=== PATIENT | male | born 1940 | race Caucasian/White ===

== ENCOUNTER 2019-09-22 02:22 | Inpatient (IN) | payer MEDICARE ==
[~2019-09-22] VITALS: Ht 182.8 cm; Wt 83.8 kg
[2019-09-22] VITALS (18 sets, daily range): BP systolic 120–152; BP diastolic 58–81
[~2019-09-22 02:22] MED LIST: AMIO200T4 PO; APIX5TAB PO; METO-351 PO; MTP25TSR PO
[2019-09-22] MEDS ORDERED: RT-ALBUTEROL/IPRATROPIUM 3 ML (DUONEB) VIAL INH ONE (02:45)
--- NOTE | 2019-09-22 02:49 | ED Dyspnea ---
General Chief Complaint: Respiratory Problems Stated Complaint: TROUBLE BREATHING Source of Information: Patient History of Present Illness Date Seen by Provider: Sep 22, 2019 Time Seen by Provider: 02:24 Initial Comments 79 yo M presents with complaints of cough and shortness of breath worsening in the last few days. Tonight he felt his breathing got much worse and he came to the ED. He is coughing up phlegm but swallowing it so he could not tell me if there is any color to it. He states he was supposed to be on a blood thinner but could not afford it so he stopped taking the medicine. He denies any pain in his chest but feels short of breath and has tightness in chest. He is short of breath but able to speak and hold a conversation. He did not feel like he was having a fever or chill. He denies any history of breathing problems such as COPD or asthma. He is a smoker and continues to use tobacco. Allergies and Home Medications Allergies Coded Allergies: No Known Drug Allergies (Unverified , 06/30/19) Home Medications Amiodarone HCl 200 Mg Tablet, 200 MG PO UD Take 2 tablets twice a day for 2 weeks then Take one tablet twice a day Prescribed by: LUANA LEO on 07/04/19 0744 Apixaban 5 Mg Tablet, 5 MG PO BID Prescribed by: LUANA LEO on 07/04/19 0744 Metoprolol Succinate 25 Mg Tab.er.24h, 25 MG PO DAILY Prescribed by: LEWIS RAE on 07/03/19 1304 Metoprolol Succinate 25 Mg Tab.er.24h, 25 MG PO DAILY Prescribed by: QUINTIN SHANNON on 07/03/19 1558 Patient Home Medication List Home Medication List Reviewed: Yes Review of Systems Review of Systems Constitutional: No chills, No fever EENTM: no symptoms reported Respiratory: cough, dyspnea on exertion, phlegm, short of breath; No stridor; wheezing Cardiovascular: No chest pain; palpitations Gastrointestinal: no symptoms reported Genitourinary: no symptoms reported Musculoskeletal: no symptoms reported Skin: no symptoms reported Psychiatric/Neurological: No Symptoms Reported Past Myqhkte-Zrfrut-Pxpqng Hx Past Med/Social Hx: Reviewed Nursing Past Med/Soc Hx Patient Social History Smoking Status: Current Everyday Smoker Type Used: Cigars 2nd Hand Smoke Exposure: Yes Recent Foreign Travel: No Contact w/Someone Who Travel: No Recent Hopitalizations: No Seasonal Allergies Seasonal Allergies: No Past Medical History Surgeries: No Respiratory: No Cardiac: Yes Atrial Fibrillation, Hypertension Neurological: No Genitourinary: No Gastrointestinal: No Musculoskeletal: No Endocrine: No HEENT: No Cancer: No Psychosocial: No Integumentary: No Family Medical History No Pertinent Family Hx Physical Exam Vital Signs Vital Signs - First Documented 09/22/19 02:27 Temp 38.4 Pulse 111 Resp 34 B/P (MAP) 149/100 (116) Pulse Ox 81 O2 Delivery Nasal Cannula O2 Flow Rate 10.00 FiO2 84 Capillary Refill : Height, Weight, BMI Height: '" Weight: lbs. oz. 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 Norm as Tested Skin: Normal Color, Warm/Dry Focused Exam Lactate Level 09/22/19 02:31: Lactic Acid Level 2.38*H Lactic Acid Level Laboratory Tests Test 09/22/19 02:31 Lactic Acid Level 2.38 MMOL/L (0.50-2.00) *H Progress/Results/Core Measures Results/Orders Lab Results Laboratory Tests Test 09/22/19 02:31 09/22/19 02:36 Range/Units White Blood Count 14.5 H 4.3-11.0 10^3/uL Red Blood Count 4.65 4.35-5.85 10^6/uL Hemoglobin 13.8 13.3-17.7 G/DL Hematocrit 43 40-54 % Mean Corpuscular Volume 93 80-99 FL Mean Corpuscular Hemoglobin 30 25-34 PG Mean Corpuscular Hemoglobin Concent 32 32-36 G/DL Red Cell Distribution Width 14.8 H 10.0-14.5 % Platelet Count 190 130-400 10^3/uL Mean Platelet Volume 11.0 H 7.4-10.4 FL Neutrophils (%) (Auto) 82 H 42-75 % Lymphocytes (%) (Auto) 10 L 12-44 % Monocytes (%) (Auto) 4 0-12 % Eosinophils (%) (Auto) 3 0-10 % Basophils (%) (Auto) 0 0-10 % Neutrophils # (Auto) 12.0 H 1.8-7.8 X 10^3 Lymphocytes # (Auto) 1.4 1.0-4.0 X 10^3 Monocytes # (Auto) 0.6 0.0-1.0 X 10^3 Eosinophils # (Auto) 0.4 H 0.0-0.3 10^3/uL Basophils # (Auto) 0.1 0.0-0.1 10^3/uL Neutrophils % (Manual) 79 % Lymphocytes % (Manual) 13 % Monocytes % (Manual) 7 % Eosinophils % (Manual) 1 % Microcytosis SLIGHT Prothrombin Time 13.8 12.2-14.7 SEC INR Comment 1.0 0.8-1.4 Activated Partial Thromboplast Time 27 24-35 SEC Sodium Level 140 135-145 MMOL/L Potassium Level 3.8 3.6-5.0 MMOL/L Chloride Level 101 98-107 MMOL/L Carbon Dioxide Level 22 21-32 MMOL/L Anion Gap 17 H 5-14 MMOL/L Blood Urea Nitrogen 21 H 7-18 MG/DL Creatinine 1.10 0.60-1.30 MG/DL Estimat Glomerular Filtration Rate > 60 BUN/Creatinine Ratio 19 Glucose Level 137 H 70-105 MG/DL Lactic Acid Level 2.38 *H 0.50-2.00 MMOL/L Calcium Level 9.0 8.5-10.1 MG/DL Corrected Calcium 8.9 8.5-10.1 MG/DL Magnesium Level 1.8 1.6-2.4 MG/DL Total Bilirubin 0.4 0.1-1.0 MG/DL Aspartate Amino Transf (AST/SGOT) 23 5-34 U/L Alanine Aminotransferase (ALT/SGPT) 24 0-55 U/L Alkaline Phosphatase 88 40-136 U/L Troponin I < 0.30 <0.30 NG/ML Pro-B-Type Natriuretic Peptide 1347.0 H <75.0 PG/ML Total Protein 7.7 6.4-8.2 GM/DL Albumin 4.1 3.2-4.5 GM/DL Blood Gas Puncture Site RIGHT RADIAL Blood Gas Patient Temperature 38.4 Arterial Blood pH 7.48 H 7.37-7.43 Arterial Blood Partial Pressure CO2 31 L 35-45 MMHG Arterial Blood Partial Pressure O2 41 L 79-93 MMHG Arterial Blood HCO3 23 23-27 MMOL/L Arterial Blood Total CO2 24.1 21.0-31.0 MMOL/L Arterial Blood Oxygen Saturation 81 L 94-100 % Arterial Blood Base Excess 0.3 -2.5-2.5 MMOL/L Ramy Test POSITIVE Blood Gas Ventilator Setting NO Blood Gas Inspired Oxygen 100 Micro Results Microbiology 09/22/19 Influenza Types A,B Antigen (BIGG) - Final, Complete My Orders Orders - JESSICA PRICE MD Cbc With Automated Diff (09/22/19 02:35) Comprehensive Metabolic Panel (09/22/19 02:35) Blood Culture (09/22/19 02:35) Chest 1 View Ap/Pa Only (09/22/19 02:35) Albuterol/Ipra Inhalation Soln (Duoneb I (09/22/19 02:45) Magnesium (09/22/19 02:35) Ekg Tracing (09/22/19 02:35) O2 (09/22/19 02:35) Ed Iv/Invasive Line Start (09/22/19 02:35) Sputum Culture (09/22/19 02:35) Monitor-Rhythm Ecg Trace Only (09/22/19 02:35) Lactic Acid Analyzer (09/22/19 02:35) Svn Small Volume Nebulizer (09/22/19 02:35) Protime With Inr (09/22/19 02:37) Partial Thromboplastin Time (09/22/19 02:37) Probnp Fs (09/22/19 02:37) Troponin I Fs (09/22/19 02:37) Arterial Blood Gas (09/22/19 02:38) Manual Differential (09/22/19 02:31) Ns Iv 1000 Ml (Sodium Chloride 0.9%) (09/22/19 02:56) Methylprednisolone Sod Succ (Solu-Medrol (09/22/19 02:56) Acetaminophen Tablet (Tylenol Tablet) (09/22/19 02:57) Piperacillin Sodium/Tazobactam (Zosyn Vi (09/22/19 02:59) Bipap (Bilevel) Set Up (09/22/19 03:19) Influenza A And B Antigens (09/22/19 03:32) Medications Given in ED Current Medications Medications Dose Ordered Sig/Corby Route Start Time Stop Time Status Last Admin Dose Admin Albuterol/ Ipratropium 3 ml ONCE ONCE INH 09/22/19 02:45 09/22/19 02:46 DC 09/22/19 02:44 3 ML Vital Signs/I&O 09/22/19 09/22/19 09/22/19 02:27 02:27 02:51 Temp 38.4 Pulse 111 Resp 34 B/P (MAP) 149/100 (116) Pulse Ox 81 84 84 O2 Delivery Nasal Cannula Non Rebreather Non Rebreather O2 Flow Rate 10.00 10.00 FiO2 84 Progress Progress Note #1: Progress Note placed on supplemental oxygen and obtain labs with cultures and lactic acid as well as sputum culture. try a breathing treatment with duoneb to see if that helps his breathing and oxygen saturation as well. Try a steroid dose since he is a smoker he likely has some component of COPD as well. Obtain ABG since he is so hypoxic on arrival. Treat fever and give IVF for his fever and presumed pneumonia. After obtaining cultures will start antibiotics presumptively. Progress Note #2: Time: 03:23 Progress Note Labs show elevated WBC count with left shift. Chemistry shows normal Cr. His Troponin is negative. His ECG shows sinus tachycardia. CXR shows RML and RLL infiltrate. He does report he is breathing easier and his O2 sat came up to 90% on facemask at 100% but ABG shows he is low pCO2 and pO2 with slightly alkalotic pH. 7.48/31/41 on 100% though mask. Will start Zosyn for pneumonia and start him on BiPap for his breathing to see if that helps his oxygen. Waiting on Lactic acid and proBNP still before calling about admit. They do have ICU and floor beds in [place]. Progress Note #3: Time: 03:41 Progress Note proBNP is elevated and his lactic acid is slightly elevated at 2.38. He is responding well to the BiPap and much more comfortable and his vital signs are all improving with treatment. D/w Dr. Mccloud from hospitalist service for admit to ICU since pt has no primary care provider. Will not give him 30 ml/kg bolus of fluids since he is not showing signs of severe sepsis but will continue fluids at 150 ml/hr at least initially. Initial ECG Impression Date: Sep 22, 2019 Initial ECG Impression Time: 02:37 Initial ECG Rate: 107 Initial ECG Rhythm: S.Tach Initial ECG Comparisson: Changed Comment Sinus tachycardia with a heart rate 107 bpm. ME interval of 199 ms. He has left ventricular hypertrophy. He has a lot of artifact on the tracing. He has no acu te ST elevation. His QT interval is 351 ms with a QTc interval 469 ms. His previous tracing had shown atrial fibrillation which he is not currently in that rhythm. Diagnostic Imaging Diagonstic Imaging: Xray Plain Films/CT/US/NM/MRI: chest Comments right middle and lower lobe infiltrates, LLL infiltrate. on my review of his 1 view CXR Departure Communication (Admissions) Time/Spoke to Admitting Phy: 03:41 d/w Dr. Mccloud for the hospitalist service and will admit for pneumonia and hypoxia. Pt has improved in respirations as well as oxygen saturation, and pulse with placing him on bipap. Started on Zosyn here. Giving 1 L NS bolus for his fluids and elevated Lactic acid of 2.38. with his elevated proBNP will defer giving him 30 ml/kg bolus since he is not exhibiting signs of severe sepsis. Impression Primary Impression: Right middle lobe pneumonia Qualified Codes: J18.1 - Lobar pneumonia, unspecified organism Additional Impressions: Right lower lobe pneumonia Qualified Codes: J18.1 - Lobar pneumonia, unspecified organism Hypoxia Disposition: ADMITTED INPATIENT Condition: Stable Admissions Decision to Admit Reason: Admit from ER (General) Decision to Admit/Date: Sep 22, 2019 Time/Decision to Admit Time: 03:41 Departure-Patient Inst. Referrals: NO,LOCAL PHYSICIAN (PCP/Family) Primary Care Physician JESSICA PRICE MD Sep 22, 2019 02:49
[2019-09-22 02:51] LABS: BASOPHILS # (AUTO) 0.1 10^3/uL (0.0-0.1); BASOPHILS % (AUTO) 0 % (0-10); EOSINOPHILS # (AUTO) 0.4 10^3/uL (0.0-0.3); EOSINOPHILS % (AUTO) 3 % (0-10); HEMATOCRIT 43 % (40-54); HEMOGLOBIN 13.8 G/DL (13.3-17.7); LYMPHOCYTES # (AUTO) 1.4 X 10^3 (1.0-4.0); LYMPHOCYTES % (AUTO) 10 % (12-44); MEAN CORPUSCULAR HEMOGLOBIN 30 PG (25-34); MEAN CORPUSCULAR HGB CONC 32 G/DL (32-36); MEAN CORPUSCULAR VOLUME 93 FL (80-99); MONOCYTES # (AUTO) 0.6 X 10^3 (0.0-1.0); MONOCYTES % (AUTO) 4 % (0-12); NEUTROPHILS % (AUTO) 82 % (42-75); PLATELET COUNT 190 10^3/uL (130-400); RED CELL DISTRIBUTION WIDTH 14.8 % (10.0-14.5); WHITE BLOOD COUNT 14.5 10^3/uL (4.3-11.0)
[2019-09-22] MEDS ORDERED: NS IV 1000 ML 1,000 ML IV STA (02:56)
[2019-09-22] MEDS ORDERED: methylPREDNISolone 125 MG (Solu-MEDROL) VIAL IVP STA (02:56)
[2019-09-22] MEDS ORDERED: ACETAMINOPHEN 500 MG TAB (TYLENOL) PO STA (02:57)
[2019-09-22] MEDS ORDERED: PIPERACILLIN SODIUM/TAZOBACTAM 4.5 GM in NS (IVPB) 100 ML IV STA (02:59)
[2019-09-22 03:04] LABS: ABG BASE EXCESS 0.3 MMOL/L (-2.5-2.5); ABG OXYGEN SATURATION 81 % (94-100); ABG PCO2 31 MMHG (35-45); ABG PH 7.48 (7.37-7.43); ABG PO2 41 MMHG (79-93); ABG TCO2 24.1 MMOL/L (21.0-31.0); ALLENS TEST POSITIVE; PATIENT TEMP 38.4; VENTILATOR NO
[2019-09-22 03:05] LABS: PROTHROMBIN TIME PATIENT 13.8 SEC (12.2-14.7)
[2019-09-22 03:06] LABS: INSPIRED O2 100
[2019-09-22 03:12] LABS: ALANINE AMINOTRANSFERASE 24 U/L (0-55); ALBUMIN 4.1 GM/DL (3.2-4.5); ALKALINE PHOSPHATASE 88 U/L (40-136); BILIRUBIN,TOTAL 0.4 MG/DL (0.1-1.0); BUN/CREATININE RATIO 19; CARBON DIOXIDE 22 MMOL/L (21-32); CHLORIDE 101 MMOL/L (98-107); GFR ESTIMATED > 60; GLUCOSE 137 MG/DL (70-105); MAGNESIUM 1.8 MG/DL (1.6-2.4); POTASSIUM 3.8 MMOL/L (3.6-5.0); SODIUM 140 MMOL/L (135-145); TOTAL PROTEIN 7.7 GM/DL (6.4-8.2)
[2019-09-22 03:30] LABS: EOSINOPHILS % (MANUAL) 1 %; LYMPHOCYTES % (MANUAL) 13 %; MICROCYTOSIS SLIGHT; MONOCYTES % (MANUAL) 7 %; NEUTROPHILS % (MANUAL) 79 %
--- NOTE | 2019-09-22 03:41 | NUR ---
PT. WAS PLACED ON BIPAP AT 100% 02 AND HIS SATS WERE 98%.
[2019-09-22 05:22] LABS: ABG BASE EXCESS -1.6 MMOL/L (-2.5-2.5); ABG OXYGEN SATURATION 70 % (94-100); ABG PCO2 34 MMHG (35-45); ABG PH 7.43 (7.37-7.43); ABG PO2 41 MMHG (79-93); ABG TCO2 23.1 MMOL/L (21.0-31.0)
[2019-09-22 05:23] LABS: ALLENS TEST YES-POS
[2019-09-22 05:24] LABS: INSPIRED O2 6L; PATIENT TEMP 37.3; VENTILATOR NO
[2019-09-22 05:37] LABS: BILIRUBIN,URINE NEGATIVE (NEGATIVE); CLARITY,URINE CLEAR; COLOR,URINE YELLOW; GLUCOSE, URINE (UA) NEGATIVE (NEGATIVE); KETONES,URINE TRACE (NEGATIVE); LEUKOCYTE ESTERASE ,URINE NEGATIVE (NEGATIVE); NITRITE,URINE NEGATIVE (NEGATIVE); PH,URINE 6.5 (5-9); PROTEIN,URINE NEGATIVE (NEGATIVE)
--- NOTE | 2019-09-22 05:51 | Pulmonary Consultation ---
History of Present Illness History of Present Illness Date Seen by Provider: Sep 22, 2019 Time Seen by Provider: 05:46 Date of Admission Allergies and Home Medications Allergies Coded Allergies: No Known Drug Allergies (Unverified , 06/30/19) Home Medications Amiodarone HCl 200 Mg Tablet, 200 MG PO UD Take 2 tablets twice a day for 2 weeks then Take one tablet twice a day Prescribed by: LUANA LEO on 07/04/19 0744 Apixaban 5 Mg Tablet, 5 MG PO BID Prescribed by: LUANA LEO on 07/04/19 0744 Metoprolol Succinate 25 Mg Tab.er.24h, 25 MG PO DAILY Prescribed by: LEWIS RAE on 07/03/19 1304 Metoprolol Succinate 25 Mg Tab.er.24h, 25 MG PO DAILY Prescribed by: QUINTIN SHANNON on 07/03/19 1558 Past Aegbdva-Hkztnt-Wuwuts Hx Past Med/Social Hx: Reviewed Nursing Past Med/Soc Hx Patient Social History Smoking Status: Current Everyday Smoker Type Used: Cigars 2nd Hand Smoke Exposure: Yes Recent Foreign Travel: No Contact w/Someone Who Travel: No Recent Infectious Disease Expo: No Recent Hopitalizations: No Physical Abuse: No Sexual Abuse: No Mistreated: No Fear: No Seasonal Allergies Seasonal Allergies: No Past Medical History Surgeries: No Respiratory: No Cardiac: Yes Atrial Fibrillation, Hypertension Neurological: No Genitourinary: No Gastrointestinal: No Musculoskeletal: No Endocrine: No HEENT: No Cancer: No Psychosocial: No Integumentary: No Family Medical History No Pertinent Family Hx Review of Systems Time Seen by Provider: 05:58 Constitutional: Fever, Chills, Sweats, Weakness, Malaise, Other Eyes: No: Pain, Vision change, Conjunctivae inflammation, Eyelid inflammation, Other, Redness ENT: Nose congestion; No: Ear pain, Ear discharge, Nose pain, Nose discharge, Mouth pain, Mouth swelling, Throat pain, Throat swelling, Other Respiratory: Cough, Shortness of breath, SOB with excertion, Sputum; No: Hemoptysis Cardiovascular: No: Chest Pain, Palpitations, Orthopnea, Paroxysmal Noc. Dyspnea, Edema, Lt Headedness, Other Sepsis Event Evaluation Height, Weight, BMI Height: '" Weight: lbs. oz. kg; 24.00 BMI Method: Exam Exam Vital Signs Date Time Temp Pulse Resp B/P (MAP) Pulse Ox O2 Delivery O2 Flow Rate FiO2 09/22/19 05:36 76 09/22/19 04:06 38.0 78 24 144/55 99 NIV Bilevel 09/22/19 02:51 84 Non Rebreather 10.00 09/22/19 02:27 84 Non Rebreather 10.00 84 09/22/19 02:27 38.4 111 34 149/100 (116) 81 Nasal Cannula I & O 09/22/19 07:00 Intake Total 1100 ml Balance 1100 ml Height & Weight Height: '" Weight: lbs. oz. kg; 24.00 BMI Method: General Appearance: Moderate Distress (working hard to breath), Thin HEENT: PERRL/EOMI, Other (chronically missing teeth and has blood on his lips) Neck: Full Range of Motion, Normal Inspection, Non Tender, Supple Respiratory: Chest Non Tender, Accessory Muscle Use, Decreased Breath Sounds, Rales, Respiratory Distress, Rhonci; No Stridor; Wheezing Cardiovascular: Normal Peripheral Pulses, Tachycardia Capillary Refill: Greater Than 3 Seconds Extremity: Pedal Edema Neurologic/Psychiatric: Alert, Oriented x3, strip cleaner II-XII Norm as Tested Skin: Normal Color, Warm/Dry Results Lab Laboratory Tests 09/22/19 02:31 Assessment/Plan Assessment/Plan Severe sepsis secondary to PNA -Zosyn and add vancomycin for now -Javed culture -MRSA swab -Influenza is negative Paroxysmal atrial fibrillation Probable CHF - Pt is edematous and BNP is elevated -Cautious IVF -PT is currently hypertensive -Will proceed with LR at 150 for now Current tobacco use with probable COPD -Duonebs Q 4 Hemoptysis - Per ER nurse report however pt denies -PT does have dried blood around lips -Hold anticoagulation for now -Check occult stool SANTIAGO CLEMENT DO Sep 22, 2019 05:51
[2019-09-22] MEDS ORDERED: LACTATED RINGERS 1,000 ML IV ONE (05:53)
[2019-09-22 05:54] LABS: BASOPHILS % (AUTO) 0 % (0-10); EOSINOPHILS % (AUTO) 0 % (0-10); HEMATOCRIT 39 % (40-54); HEMOGLOBIN 12.5 G/DL (13.3-17.7); LYMPHOCYTES # (AUTO) 0.2 X 10^3 (1.0-4.0); LYMPHOCYTES % (AUTO) 2 % (12-44); MEAN CORPUSCULAR HEMOGLOBIN 30 PG (25-34); MEAN CORPUSCULAR HGB CONC 32 G/DL (32-36); MEAN CORPUSCULAR VOLUME 92 FL (80-99); MEAN PLATELET VOLUME 10.8 FL (7.4-10.4); MONOCYTES # (AUTO) 0.5 X 10^3 (0.0-1.0); MONOCYTES % (AUTO) 4 % (0-12); NEUTROPHILS % (AUTO) 94 % (42-75); PLATELET COUNT 166 10^3/uL (130-400); RED CELL DISTRIBUTION WIDTH 14.9 % (10.0-14.5); WHITE BLOOD COUNT 12.8 10^3/uL (4.3-11.0)
[2019-09-22 05:54] LABS: BACTERIA,URINE NEGATIVE /HPF
[2019-09-22] MEDS ORDERED: VANCOMYCIN 1000 MG/VIAL ONE (05:56)
[2019-09-22] MEDS ORDERED: NS (IVPB) 250 ML ONE (05:56)
[2019-09-22] MEDS ORDERED: NORMAL SALINE IV SCH (06:00)
[2019-09-22] MEDS ORDERED: PHARMACY TO DOSE IV SCH (06:00)
[2019-09-22] MEDS ORDERED: LACTATED RINGERS 1,000 ML IV SCH (06:00)
[2019-09-22] MEDS ORDERED: PIPERACILLIN/TAZOBACTAM (BULK) 4.5 GM in NS (IVPB) 100 ML IV SCH ×2 (06:00→09:00)
[2019-09-22] MEDS ORDERED: RT-ALBUTEROL/IPRATROPIUM 3 ML (DUONEB) VIAL INH SCH (06:00)
[2019-09-22] MEDS ORDERED: VANCOMYCIN IV SCH (06:00)
[2019-09-22 06:17] LABS: BUN/CREATININE RATIO 19; CALCIUM 8.4 MG/DL (8.5-10.1); CARBON DIOXIDE 19 MMOL/L (21-32); CHLORIDE 109 MMOL/L (98-107); CREATININE SERUM 1.05 MG/DL (0.60-1.30); GFR ESTIMATED > 60; GLUCOSE 109 MG/DL (70-105); MAGNESIUM 1.6 MG/DL (1.6-2.4); PHOSPHORUS 2.2 MG/DL (2.3-4.7); POTASSIUM 3.7 MMOL/L (3.6-5.0); SODIUM 140 MMOL/L (135-145)
[2019-09-22] MEDS ORDERED: VANCOMYCIN INJECTION 1,000 MG in NS (IVPB) 250 ML IV SCH (06:30)
[2019-09-22] MEDS: KCL 20 MEQ TAB (K-DUR) PO SCH ×2 (06:52→21:01)
--- NOTE | 2019-09-22 06:52 | NUR ---
Vancomycin Dosing - Vancomycin 1500mg over 2 hours x 1, then 1250mg every 12 hours.
[2019-09-22] MEDS: MAGNESIUM 1 GM/100 ML IVPB 100 ML IV SCH ×2 (06:53→08:19)
--- NOTE | 2019-09-22 07:23 | Diagnostic Imaging Report ---
INDICATION: Shortness of breath. Comparison is made with prior examination from 07/02/2019. FINDINGS: There is cardiomegaly. There is moderate congestive failure. There is no pleural effusion or pneumothorax. Mediastinum is unremarkable. IMPRESSION: Cardiomegaly and moderately severe congestive failure. Dictated by: Dictated on workstation # [id number]
[2019-09-22] MEDS: RT-ALBUTEROL/IPRATROPIUM 3 ML (DUONEB) VIAL INH SCH ×5 (07:29→23:01)
[2019-09-22] MEDS ORDERED: FLU QUADRIvalent (5+ YOA) 2019-2020 (AFLURIA) 0.5 ML IM ONE (07:30)
[2019-09-22] MEDS ORDERED: VANCOMYCIN 1500 MG/NS 500 ML IVPB IV NR ×2 (08:00)
[2019-09-22] MEDS: meTOprolol TARTRATE 25 MG (LOPRESSOR) TABLET PO SCH ×2 (08:20→21:01)
[2019-09-22] MEDS: PANTOPRAZOLE 40 MG (PROTONIX) VIAL IV SCH (08:20)
[2019-09-22] MEDS ORDERED: VANCOMYCIN 500 MG/NS 100 ML IV NR ×2 (08:30)
[2019-09-22] MEDS ORDERED: AZITHROMYCIN 500 MG/NS 250 ML IVPB IV SCH ×2 (09:00)
[2019-09-22] MEDS ORDERED: FUROSEMIDE 40 MG/4 ML INJ (LASIX) IVP ONE (09:30)
[2019-09-22] MEDS: NICOTINE 21 MG (NICODERM) PATCH TD SCH (09:32)
[2019-09-22] MEDS: PIPERACILLIN/TAZO 4.5 GM/NS 100 ML IV SCH ×4 (09:42→17:13)
--- NOTE | 2019-09-22 10:34 | NUR ---
DR MILLER NOTIFIED OF CONSULT.
[2019-09-22] MEDS ORDERED: ASPIRIN 81 MG CHEW (CHILDREN'S ASA) PO ONE (12:00)
--- NOTE | 2019-09-22 12:05 | History & Physical-Hospitalist ---
History of Present Illness HPI/Chief Complaint Zacarias Barakat is a 79-year-old male with past medical history of hypertension, paroxysmal atrial fibrillation, heart failure with preserved ejection fraction, who presented with shortness of breath. He reports that the shortness of breath is been going on for quite a while. He reports that he had some chills overnight. He reports a cough with sputum production. He reports orthopnea. He reports leg swelling. He denies any chest pain. He denies any abdominal pain, nausea, vomiting, diarrhea, or dysuria. He reports that he has not been taking his Eliquis for anticoagulation because he was unable to afford it. He never establish with a primary care physician. He has not followed up with his preparer following his recent hospitalization in June. Source: patient Exam Limitations: no limitations Date Seen 09/22/19 Time Seen by a Provider: 09:20 Attending Physician Surekha Dubon MD PCP No,Local Physician Referring Physician Date of Admission Sep 22, 2019 at 03:53 Home Medications & Allergies Home Medications Reviewed patient Home Medication Reconciliation performed by pharmacy medication reconciliations lead based paint technician and/or nursing. Patients Allergies have been reviewed. Allergies Allergies Coded Allergies No Known Drug Allergies (Vqowivgrrs70/17/19) Past Giqaybv-Ownozf-Hrbwhu Hx Past Med/Social Hx: Reviewed Nursing Past Med/Soc Hx Patient Social History Smoking Status: Current Everyday Smoker Type Used: Cigars 2nd Hand Smoke Exposure: Yes Recent Foreign Travel: No Contact w/other who traveled: No Recent Hopitalizations: No Recent Infectious Disease Expo: No Seasonal Allergies Seasonal Allergies: No Past Medical History Cardiac: Atrial Fibrillation, Hypertension Family History No Pertinent Family Hx Review of Systems Constitutional: chills EENTM: no symptoms reported Respiratory: cough, orthopnea, phlegm, short of breath Cardiovascular: no symptoms reported Gastrointestinal: no symptoms reported Genitourinary: no symptoms reported Musculoskeletal: no symptoms reported Skin: no symptoms reported Psychiatric/Neurological: No Symptoms Reported Physical Exam Physical Exam Vital Signs Vital Signs - First Documented 09/22/19 02:27 Temp 38.4 Pulse 111 Resp 34 B/P (MAP) 149/100 (116) Pulse Ox 81 O2 Delivery Nasal Cannula O2 Flow Rate 10.00 FiO2 84 Capillary Refill : Less Than 3 Seconds Height, Weight, BMI Height: '" Weight: lbs. oz. kg; 24.00 BMI Method: General Appearance: No Apparent Distress, WD/WN HEENT: PERRL/EOMI, Pharynx Normal Neck: Normal Inspection, Non Tender, Supple Respiratory: No Respiratory Distress, Crackles, Other (wearing nasal cannula 6 L) Cardiovascular: Regular Rate, Rhythm, No Murmur Gastrointestinal: Normal Bowel Sounds, Non Tender, Soft Extremity: Normal Inspection, Non Tender, Pedal Edema (4+) Neurologic/Psychiatric: Alert, Oriented x3, No Motor/Sensory Deficits, Normal Mood/Affect Skin: Normal Color, Warm/Dry Lymphatic: No Adenopathy Results Results/Procedures Labs Laboratory Tests 09/22/19 02:31 09/22/19 05:46 Patient resulted labs reviewed. Imaging: Reviewed Imaging Report Assessment/Plan Admission Diagnosis acute on chronic heart failure with preserved ejection fraction Admission Status: Inpatient Order (span 2 midnights) Reason for Inpatient Admission: heart failure requiring IV diuresis Assessment and Plan Acute on chronic heart failure with preserved ejection fraction Acute respiratory failure with hypoxia NSTEMI requiring supplemental oxygen 6 L, no home use Chest x-ray consistent with congestive heart failure, no consolidation BNP elevated at 1347 on arrival, down to 784 this morning Given 1 dose of Lasix on arrival, continue Initial troponin undetectable, repeat 0.7 Cardiology consulted, appreciate assistance Aspirin 324 mg ordered, continue 81 mg daily Begin therapeutic Lovenox twice daily echocardiogram ordered consider CT chest to rule out pulmonary embolism SIRS Possible pneumonia lactic acidosis WBC mildly elevated, febrile to 38.4 overnight, procalcitonin normal started on vancomycin and Zosyn for possible pneumonia lactic acidosis resolved Hypophosphatemia Hypomagnesemia Continue to monitor and replace as needed Diagnosis/Problems Diagnosis/Problems (1) Acute on chronic heart failure with preserved ejection fraction (HFpEF) Status: Acute (2) Acute respiratory failure with hypoxia (3) NSTEMI (non-ST elevation myocardial infarction) Status: Acute (4) Lactic acidosis Status: Resolved Resolution Date/Time: 09/22/19 @ 12:08 (5) Hypophosphatemia Status: Acute (6) Hypomagnesemia Status: Acute (7) SIRS (systemic inflammatory response syndrome) Status: Acute Clinical Quality Measures DVT/VTE Risk/Contraindication: Risk Factor Score Per Nursin RFS Level Per Nursing on Admit: 4+=Very High SUREKHA DUBON MD Sep 22, 2019 12:05
[2019-09-22] MEDS: ENOXAPARIN 100 MG/1 ML (LOVENOX) SYR SC SCH (12:16)
--- NOTE | 2019-09-22 12:29 | Consultation-Cardiology ---
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 Has also been noticing increasing leg swelling. Denies palp since hospitalization of Jun 2019 (when he was diagnosed with PAF). Denies syncope. Denies cp. Review of Systems-Cardiology Review of Systems Constitutional: malaise, tiredness; No weight loss, No weight gain Eyes: No vision change Ears/Nose/Throat: No ear discharge, No nasal drainage, No recent hearing loss Respiratory: As described under HPI Cardiovascular: As described under HPI Gastrointestinal: No constipation, No diarrhea, No nausea, No vomiting Genitourinary: No hematuria, No urine frequency changes Musculoskeletal: No back pain, No joint pain Skin: No rash, No ulcerations Psychiatric/Neurological: No seizure, No focal weakness, No syncope Hematologic: No bleeding abnormalities HBY-Balrfn-Sxyriz Hx Patient Social History Smoking Status: Current Everyday Smoker Type Used: Cigars 2nd Hand Smoke Exposure: Yes Recent Foreign Travel: No Recent Infectious Disease Expo: No Hospitalization with Isolation: Denies Past Medical History PMH As described under Assessment. Family Medical History Family Medical History: He does not report fam h/o early CAD or SCD Allergies and Home Medications Allergies Coded Allergies: No Known Drug Allergies (Unverified , 06/30/19) Home Medications Amiodarone HCl 200 Mg Tablet, 200 MG PO UD Take 2 tablets twice a day for 2 weeks then Take one tablet twice a day Prescribed by: LUANA GARCIA on 07/04/19 0744 Apixaban 5 Mg Tablet, 5 MG PO BID Prescribed by: LUANA GARCIA on 07/04/19 0744 Metoprolol Succinate 25 Mg Tab.er.24h, 25 MG PO DAILY Prescribed by: LEWIS RAE on 07/03/19 1304 Metoprolol Succinate 25 Mg Tab.er.24h, 25 MG PO DAILY Prescribed by: QUINTIN SHANNON on 07/03/19 4598 Patient Home Medication List Home Medication List Reviewed: Yes Physical Exam-Cardiology Physical Exam Vital Signs/I&O 09/22/19 09/22/19 09/22/19 09/22/19 02:27 02:27 02:51 04:06 Temp 38.4 38.0 Pulse 111 78 Resp 34 24 B/P (MAP) 149/100 (116) 144/55 Pulse Ox 81 84 84 99 O2 Delivery Nasal Cannula Non Rebreather Non Rebreather NIV Bilevel O2 Flow Rate 10.00 10.00 FiO2 84 09/22/19 09/22/19 09/22/19 09/22/19 05:06 05:30 05:36 05:45 Temp 37.3 Pulse 80 94 76 75 Resp 32 20 29 B/P (MAP) 150/66 (94) 138/62 (87) 134/64 (87) Pulse Ox 91 92 92 O2 Delivery Nasal Cannula Nasal Cannula Nasal Cannula O2 Flow Rate 6.00 6.00 6.00 09/22/19 09/22/19 09/22/19 09/22/19 05:47 05:56 06:00 06:15 Temp 38.0 Pulse 76 9 70 Resp 24 16 B/P (MAP) 134/64 (87) 132/67 (88) Pulse Ox 91 91 91 93 O2 Delivery Nasal Cannula Nasal Cannula Nasal Cannula O2 Flow Rate 6.00 6.00 6.00 FiO2 44 09/22/19 09/22/19 09/22/19 09/22/19 06:30 07:00 07:00 07:18 Pulse 79 66 71 Resp 22 19 B/P (MAP) 145/73 (97) 138/81 (100) Pulse Ox 94 94 91 O2 Delivery Nasal Cannula Nasal Cannula Nasal Cannula O2 Flow Rate 6.00 4.00 6.00 09/22/19 09/22/19 09/22/19 09/22/19 07:31 08:00 08:00 08:00 Temp 36.6 Pulse 68 Resp 20 B/P (MAP) 128/61 (83) Pulse Ox 93 92 O2 Delivery Nasal Cannula Nasal Cannula Nasal Cannula O2 Flow Rate 6.00 6.00 4.00 09/22/19 09/22/19 09/22/19 09/22/19 09:00 10:00 10:48 11:00 Pulse 62 61 65 Resp 16 11 23 B/P (MAP) 120/58 (78) 120/78 (92) 136/70 (92) Pulse Ox 93 94 96 94 O2 Delivery Nasal Cannula Nasal Cannula Nasal Cannula Nasal Cannula O2 Flow Rate 4.00 4.00 6.00 4.00 09/22/19 12:00 Pulse 75 Resp 19 B/P (MAP) 152/73 (99) Pulse Ox 94 O2 Delivery Nasal Cannula O2 Flow Rate 4.00 Capillary Refill : Less Than 3 Seconds Constitutional: AAO x 3, well-developed, well-nourished HEENT: other (dental caries), EOMI, hearing is well preserved; No xanthelasmas are seen Respiratory: No accessory muscle use; other (fair to good bilat air entry; a few, finte basal crackles bilaterally) Cardiovascular: regular rate-rhythm, S1 and S2, systolic murmur (soft ANNETTA at card base) Gastrointestinal: No tender; soft; No guarding, No rebound; audible bowel sounds Extremities: No clubbing, No cyanosis; significant edema (pitting edema of both legs) Neurologic/Psychiatric: oriented x 3, other (moves all limbs equally) Skin: No rash on exposed areas, No ulcerations on exposed areas Data Review Labs Laboratory Tests 09/22/19 02:31: White Blood Count 14.5H, Red Blood Count 4.65, Hemoglobin 13.8, Hematocrit 43, Mean Corpuscular Volume 93, Mean Corpuscular Hemoglobin 30, Mean Corpuscular Hemoglobin Concent 32, Red Cell Distribution Width 14.8H, Platelet Count 190, Mean Platelet Volume 11.0H, Neutrophils (%) (Auto) 82H, Lymphocytes (%) (Auto) 10L, Monocytes (%) (Auto) 4, Eosinophils (%) (Auto) 3, Basophils (%) (Auto) 0, Neutrophils # (Auto) 12.0H, Lymphocytes # (Auto) 1.4, Monocytes # (Auto) 0.6, Eosinophils # (Auto) 0.4H, Basophils # (Auto) 0.1, Neutrophils % (Manual) 79, Lymphocytes % (Manual) 13, Monocytes % (Manual) 7, Eosinophils % (Manual) 1, Microcytosis SLIGHT, Prothrombin Time 13.8, INR Comment 1.0, Activated Partial Thromboplast Time 27, Sodium Level 140, Potassium Level 3.8, Chloride Level 101, Carbon Dioxide Level 22, Anion Gap 17H, Blood Urea Nitrogen 21H, Creatinine 1.10, Estimat Glomerular Filtration Rate > 60, BUN/Creatinine Ratio 19, Glucose Level 137H, Lactic Acid Level 2.38*H, Calcium Level 9.0, Corrected Calcium 8.9, Magnesium Level 1.8, Total Bilirubin 0.4, Aspartate Amino Transf (AST/SGOT) 23, Alanine Aminotransferase (ALT/SGPT) 24, Alkaline Phosphatase 88, Troponin I < 0.30, Pro-B-Type Natriuretic Peptide 1347.0H, Total Protein 7.7, Albumin 4.1 09/22/19 02:36: Blood Gas Puncture Site RIGHT RADIAL, Blood Gas Patient Temperature 38.4, Arterial Blood pH 7.48H, Arterial Blood Partial Pressure CO2 31L, Arterial Blood Partial Pressure O2 41L, Arterial Blood HCO3 23, Arterial Blood Total CO2 24.1, Arterial Blood Oxygen Saturation 81L, Arterial Blood Base Excess 0.3, Ramy Test POSITIVE, Blood Gas Ventilator Setting NO, Blood Gas Inspired Oxygen 100 09/22/19 05:10: Urine Color YELLOW, Urine Clarity CLEAR, Urine pH 6.5, Urine Specific [place] 1.015L, Urine Protein NEGATIVE, Urine Glucose (UA) NEGATIVE, Urine Ketones TRACEH, Urine Nitrite NEGATIVE, Urine Bilirubin NEGATIVE, Urine Urobilinogen 1.0, Urine Leukocyte Esterase NEGATIVE, Urine RBC (Auto) TRACE-L, Urine RBC 2-5H , Urine WBC NONE, Urine Squamous Epithelial Cells 2-5, Urine Crystals NONE, Urine Bacteria NEGATIVE, Urine Casts NONE, Urine Mucus SMALLH, Urine Culture Indicated NO 09/22/19 05:13: Blood Gas Puncture Site LEFT RADIAL, Blood Gas Patient Temperature 37.3, Arterial Blood pH 7.43, Arterial Blood Partial Pressure CO2 34L, Arterial Blood Partial Pressure O2 41L, Arterial Blood HCO3 22L, Arterial Blood Total CO2 23.1, Arterial Blood Oxygen Saturation 70L, Arterial Blood Base Excess -1.6, Ramy Test YES-POS, Blood Gas Ventilator Setting NO, Blood Gas Inspired Oxygen 6L 09/22/19 05:46: White Blood Count 12.8H, Red Blood Count 4.23L, Hemoglobin 12.5L, Hematocrit 39L , Mean Corpuscular Volume 92, Mean Corpuscular Hemoglobin 30, Mean Corpuscular Hemoglobin Concent 32, Red Cell Distribution Width 14.9H, Platelet Count 166, Mean Platelet Volume 10.8H, Neutrophils (%) (Auto) 94H, Lymphocytes (%) (Auto) 2L, Monocytes (%) (Auto) 4, Eosinophils (%) (Auto) 0, Basophils (%) (Auto) 0, Neutrophils # (Auto) 12.0H, Lymphocytes # (Auto) 0.2L, Monocytes # (Auto) 0.5, Eosinophils # (Auto) 0.0, Basophils # (Auto) 0.0, Sodium Level 140, Potassium Level 3.7, Chloride Level 109H, Carbon Dioxide Level 19L, Anion Gap 12, Blood Urea Nitrogen 20H, Creatinine 1.05, Estimat Glomerular Filtration Rate > 60, BUN/Creatinine Ratio 19, Glucose Level 109H, Lactic Acid Level 0.98, Calcium Level 8.4L, Phosphorus Level 2.2L, Magnesium Level 1.6, B-Type Natriuretic Peptide 784.5H, Procalcitonin 0.12H 09/22/19 09:24: Troponin I 0.769*H Microbiology 09/22/19 Influenza Types A,B Antigen (BIGG) - Final, Complete A/P-Cardiology Assessment/Admission Diagnosis Ac diastolic CHF. Echo of 09/22/19: LVEF 50-55%, grade 2 john dysfunction, mild , RVSP 28 mmHg Mild troponin elevation: probably type-2 OR due to decompensated CHF Possible pneumonia, being managed by the Hosp Svce H/o PAF, documented in Jun 2019 Hypertension Chronic smoker of cigarettes Discussion and Recomendations * Diuretics to treat decomp CHF * Continue amiodarone and apixaban that Dr Mariee has had him on * Add low dose ASA * D/c enoxaparin after starting apixaban back * Monitor labs * Would need coronary evaluation: stress test or cardiac cath, based on hosp course Clinical Quality Measures DVT/VTE Risk/Contraindication: Risk Factor Score Per Nursin RFS Level Per Nursing on Admit: 4+=Very High IRAJ MILLER MD FACP FAC CCDS Sep 22, 2019 12:29
[2019-09-22] MEDS ORDERED: AMIODARONE 200 MG (CORDARONE) TAB PO NR (12:45)
[2019-09-22] MEDS ORDERED: NS 100 ML (IVPB) BAG IV ONE (13:00)
[2019-09-22] MEDS ORDERED: HOLD METFORMIN - RECEIVED CONTRAST 20 ML VIAL IV SCH (13:00)
[2019-09-22] MEDS ORDERED: IOHEXOL 350 MG/ML 100 ML (OMNIPAQUE 350) VIAL IV ONE (13:00)
--- NOTE | 2019-09-22 13:27 | NUR ---
MENA WALLS TO ASSUME CARE OF PT. NO QUESTIONS/CONCERNS VOICED.
--- NOTE | 2019-09-22 15:37 | Diagnostic Imaging Report ---
PROCEDURE: CT angiography of the chest with contrast. TECHNIQUE: Multiple contiguous axial images were obtained through the chest after uneventful bolus administration of intravenous contrast. 3D reconstructed CTA MIP acquisitions were also performed. Auto Exposure Controls were utilized during the CT exam to meet ALARA standards for radiation dose reduction. INDICATION: Shortness of breath. COMPARISON: There are no prior CTA chest examinations available for comparison. FINDINGS: There is no defect within the pulmonary arteries to indicate a pulmonary metastases. The aorta is not well opacified and consequently difficult to assess. The aorta does not appear to be enlarged and there is no evidence for a dissection. The heart is mildly enlarged but stable when compared to the chest exam performed prior to this study. The chest exam did note diffuse alveolar/interstitial pulmonary infiltrates, bilaterally. Those findings are again evident and are most likely due to pulmonary edema as there are small bilateral pleural effusions present. There could be an element of pneumonia/atelectasis present as well. There is no obvious mediastinal or hilar adenopathy. The thyroid gland is generally unremarkable. The sections through the upper abdomen failed to show any sign of an acute abnormality. The bone windows are unremarkable for a fracture or for a destructive lesion. IMPRESSION: 1. There are diffuse alveolar/interstitial pulmonary infiltrates, bilaterally, and small bilateral pleural effusions. These findings are most likely due to pulmonary edema although there could be an element of pneumonia/atelectasis present as well. Clinical followup is recommended. 2. There is no defect within the pulmonary arteries to indicate a pulmonary embolus and there is no sign of an aortic dissection. 3. There is cardiomegaly and coronary artery disease. Dictated by: Dictated on workstation # [id number]
[2019-09-22] MEDS ORDERED: FUROSEMIDE 40 MG/4 ML INJ (LASIX) IVP SCH (17:00)
[2019-09-22] MEDS ORDERED: RIVAROXABAN 15 MG TABLET (XARELTO) PO SCH (19:00)
[2019-09-22] MEDS: VANCOMYCIN 1250 MG/NS 250 ML IVPB IV SCH ×2 (21:01)
[2019-09-23] VITALS: BP 130/58
[2019-09-23] MEDS: ENOXAPARIN 100 MG/1 ML (LOVENOX) SYR SC SCH (00:28)
[2019-09-23] MEDS: PIPERACILLIN/TAZO 4.5 GM/NS 100 ML IV SCH ×6 (00:31→17:35)
[2019-09-23] MEDS: RT-ALBUTEROL/IPRATROPIUM 3 ML (DUONEB) VIAL INH SCH ×6 (02:05→22:07)
[2019-09-23 03:53] LABS: BASOPHILS % (AUTO) 0 % (0-10); EOSINOPHILS % (AUTO) 0 % (0-10); HEMATOCRIT 36 % (40-54); HEMOGLOBIN 11.8 G/DL (13.3-17.7); LYMPHOCYTES # (AUTO) 0.4 X 10^3 (1.0-4.0); LYMPHOCYTES % (AUTO) 2 % (12-44); MEAN CORPUSCULAR HEMOGLOBIN 30 PG (25-34); MEAN CORPUSCULAR HGB CONC 33 G/DL (32-36); MEAN CORPUSCULAR VOLUME 92 FL (80-99); MEAN PLATELET VOLUME 11.1 FL (7.4-10.4); MONOCYTES # (AUTO) 0.8 X 10^3 (0.0-1.0); MONOCYTES % (AUTO) 4 % (0-12); NEUTROPHILS # (AUTO) 17.5 X 10^3 (1.8-7.8); NEUTROPHILS % (AUTO) 93 % (42-75); PLATELET COUNT 162 10^3/uL (130-400); RED CELL DISTRIBUTION WIDTH 15.2 % (10.0-14.5); WHITE BLOOD COUNT 18.8 10^3/uL (4.3-11.0)
[2019-09-23 04:00] VITALS: BP 128/66
--- NOTE | 2019-09-23 04:12 | Pulmonary Progress Note ---
Subjective Time Seen by a Provider: 04:08 Subjective/Events-last exam Pt appears to be doing better. Sepsis Event Evaluation Height, Weight, BMI Height: '" Weight: lbs. oz. kg; 24.00 BMI Method: Focused Exam Lactate Level 09/22/19 02:31: Lactic Acid Level 2.38*H 09/22/19 05:46: Lactic Acid Level 0.98 Exam Exam Vital Signs Date Time Temp Pulse Resp B/P (MAP) Pulse Ox O2 Delivery O2 Flow Rate FiO2 09/23/19 01:00 67 09/23/19 00:00 Nasal Cannula 4.00 09/23/19 00:00 36.2 71 22 130/58 (82) 94 Nasal Cannula 4.00 09/22/19 23:01 95 Nasal Cannula 3.00 09/22/19 20:00 Nasal Cannula 4.00 09/22/19 19:15 36.4 73 24 139/70 (93) 97 Nasal Cannula 4.00 09/22/19 19:06 94 Nasal Cannula 3.00 09/22/19 19:00 66 09/22/19 18:00 75 9 121/59 (79) 96 Nasal Cannula 4.00 09/22/19 16:00 36.1 09/22/19 16:00 Nasal Cannula 6.00 09/22/19 16:00 69 16 143/69 (93) 96 Nasal Cannula 4.00 09/22/19 15:00 70 17 152/79 (103) 95 Nasal Cannula 4.00 09/22/19 14:20 96 Nasal Cannula 4.00 09/22/19 14:00 64 140/70 (93) 96 Nasal Cannula 4.00 09/22/19 13:00 72 24 146/71 (96) 97 Nasal Cannula 4.00 09/22/19 12:29 74 09/22/19 12:00 36.1 09/22/19 12:00 75 19 152/73 (99) 94 Nasal Cannula 4.00 09/22/19 12:00 Nasal Cannula 6.00 09/22/19 11:00 65 23 136/70 (92) 94 Nasal Cannula 4.00 09/22/19 10:48 96 Nasal Cannula 6.00 09/22/19 10:00 61 11 120/78 (92) 94 Nasal Cannula 4.00 09/22/19 09:00 62 16 120/58 (78) 93 Nasal Cannula 4.00 09/22/19 08:00 68 20 128/61 (83) 92 Nasal Cannula 4.00 09/22/19 08:00 Nasal Cannula 6.00 09/22/19 08:00 36.6 09/22/19 07:31 93 Nasal Cannula 6.00 09/22/19 07:18 91 Nasal Cannula 6.00 09/22/19 07:00 71 19 138/81 (100) 94 Nasal Cannula 4.00 09/22/19 07:00 66 09/22/19 06:30 79 22 145/73 (97) 94 Nasal Cannula 6.00 09/22/19 06:15 70 16 132/67 (88) 93 Nasal Cannula 6.00 09/22/19 06:00 9 24 134/64 (87) 91 Nasal Cannula 6.00 09/22/19 05:56 91 Nasal Cannula 6.00 09/22/19 05:47 38.0 76 91 44 09/22/19 05:45 75 29 134/64 (87) 92 Nasal Cannula 6.00 09/22/19 05:36 76 09/22/19 05:30 94 20 138/62 (87) 92 Nasal Cannula 6.00 09/22/19 05:06 37.3 80 32 150/66 (94) 91 Nasal Cannula 6.00 I & O 09/23/19 07:00 Intake Total 2802.5 ml Output Total 5525 ml Balance -2722.5 ml Height & Weight Height: '" Weight: lbs. oz. kg; 24.00 BMI Method: General Appearance: No Apparent Distress, WD/WN HEENT: PERRL/EOMI, Pharynx Normal Neck: Normal Inspection, Non Tender, Supple Respiratory: No Respiratory Distress, Crackles, Other (wearing nasal cannula 6 L) Cardiovascular: Regular Rate, Rhythm, No Murmur Capillary Refill: Less Than 3 Seconds Extremity: Normal Inspection, Non Tender, Pedal Edema (4+) Neurologic/Psychiatric: Alert, Oriented x3, No Motor/Sensory Deficits, Normal Mood/Affect Skin: Normal Color, Warm/Dry Lymphatic: No Adenopathy Results Lab Laboratory Tests 09/22/19 02:31 09/22/19 05:46 09/23/19 03:10 Assessment/Plan Assessment/Plan Severe sepsis secondary to PNA -Zosyn and add vancomycin for now -Javed culture -MRSA swab -Influenza is negative Paroxysmal atrial fibrillation Diastolic CHF -Cautious IVF -PT is currently hypertensive -Will proceed with LR at 150 for now Current tobacco use with probable COPD -Duonebs Q 4 Hemoptysis - Per ER nurse report however pt denies -PT does have dried blood around lips -Hold anticoagulation for now -Check occult stool SANTIAGO CLEMENT DO Sep 23, 2019 04:12
[2019-09-23 04:13] LABS: ALBUMIN 3.4 GM/DL (3.2-4.5); BILIRUBIN,TOTAL 0.5 MG/DL (0.1-1.0); CALCIUM 8.2 MG/DL (8.5-10.1); CREATININE SERUM 1.28 MG/DL (0.60-1.30); MAGNESIUM 2.1 MG/DL (1.6-2.4); PHOSPHORUS 3.2 MG/DL (2.3-4.7); POTASSIUM 3.3 MMOL/L (3.6-5.0); TOTAL PROTEIN 6.4 GM/DL (6.4-8.2)
[2019-09-23] MEDS: POTASSIUM CL 10MEQ/50ML IVPB 50 ML IV SCH ×5 (05:06→07:43)
[2019-09-23] MEDS ORDERED: NS (IVPB) 250 ML ONE (07:22)
[2019-09-23] MEDS: MAGNESIUM 1 GM/100 ML IVPB 100 ML IV SCH (07:34)
[2019-09-23] MEDS: KCL 20 MEQ TAB (K-DUR) PO SCH ×3 (07:34→21:03)
[2019-09-23 08:00] VITALS: BP 144/64
[2019-09-23] MEDS: PANTOPRAZOLE 40 MG (PROTONIX) VIAL IV SCH (08:24)
[2019-09-23] MEDS: AMIODARONE 200 MG (CORDARONE) TAB PO SCH (08:26)
[2019-09-23] MEDS: PATCH REMOVAL TP SCH (08:26)
[2019-09-23] MEDS: meTOprolol TARTRATE 25 MG (LOPRESSOR) TABLET PO SCH ×2 (08:26→21:03)
[2019-09-23] MEDS: FUROSEMIDE 40 MG/4 ML INJ (LASIX) IVP SCH ×2 (08:26→17:35)
[2019-09-23] MEDS: ASPIRIN E.C. 81 MG (ECOTRIN) TAB PO SCH (08:26)
[2019-09-23] MEDS: NICOTINE 21 MG (NICODERM) PATCH TD SCH (08:31)
[2019-09-23] MEDS ORDERED: TMSL.4C PO (08:35)
[2019-09-23] MEDS ORDERED: MTP25TSR PO (08:35)
[2019-09-23] MEDS ORDERED: AMIO200T4 PO (08:35)
[2019-09-23] MEDS ORDERED: FLUT9.9S NS (08:42)
[2019-09-23] MEDS ORDERED: GLUC-219 PO (08:42)
[2019-09-23] MEDS ORDERED: GUAI600T43 PO ×2 (08:42)
[2019-09-23] MEDS ORDERED: IBUP-2473 PO (08:42)
--- NOTE | 2019-09-23 09:10 | NUR ---
SPOKE WITH THE PT WELL GOING THRU THE EXT MED HISTORY TO COMPLETE THE MED REC. PT WAS ABLE TO VERIFY HIS MEDS & HOW/WHEN HE TAKES EACH. RACHELIS: THIS WAS LAST FILLED ON 07-04-2019 #60- THE PT SAYS HE HAS NOT TAKEN SINCE THIS FILL HAS RUN OUT. HE MENTIONED COST BEING A PROBLEM AND THAT IS WAS OVER $400. PT SAID THAT THE DR MENTIONED SWITCHING HIM TO SOMETHING ELSE WHEN HE WAS DISCHARGED. OTC MEDS: FLONASE MUCINES IBUPROFEN OSTEO BI FLEX PT ALSO MENTIONS HE TAKES SUPPLEMENTS HE GETS FROM THE MAIL BUT HE COULD NOT REMEMBER THE NAMES.
--- NOTE | 2019-09-23 09:24 | Cardiology Progress Note ---
Subjective Date Seen by Provider: Sep 23, 2019 Time Seen by Provider: 09:18 Subjective/Events-last exam Patient was seen and evaluated, laying down in bed, feeling better, breathing better, still having some cough. Review of Systems General: No Chills, No Night Sweats; Fatigue; No Malaise, No Appetite, No Other HEENT: No Head Aches, No Visual Changes, No Eye Pain, No Ear Pain, No Dysphasia, No Sinus Congestion, No Post Nasal Drip, No Sore Throat, No Other Pulmonary: Dyspnea, Cough; No Pleuritic Chest Pain, No Other Cardiovascular: Edema; No: Chest Pain, Palpitations, Orthopnea, Paroxysmal Noc. Dyspnea, Lt Headedness, Other Focused Exam Lactate Level 09/22/19 02:31: Lactic Acid Level 2.38*H 09/22/19 05:46: Lactic Acid Level 0.98 09/23/19 09:11: Lactic Acid Level Laboratory Tests Test 09/23/19 09:11 Objective-Cardiology Exam Last Set of Vital Signs Vital Signs 09/22/19 09/23/19 05:47 08:00 Temp 35.7 Pulse 82 Resp 18 B/P (MAP) 144/64 (90) Pulse Ox 93 O2 Delivery Nasal Cannula O2 Flow Rate 4.00 FiO2 44 Capillary Refill : Less Than 3 Seconds I&O Intake and Output 09/23/19 00:00 Intake Total 3520 ml Output Total 5525 ml Balance -2005 ml Intake Oral 1490 ml IV Total 2030 ml Output Urine Total 5525 ml General: Alert, Oriented X3, Cooperative HEENT: Atraumatic, PERRLA Neck: Supple, No JVD, No Thyromegaly Lungs: Normal Air Movement, Other (Bilateral rhonchi) Heart: Regular Rate, Normal S1, Normal S2, Other (Systolic murmur at the left sternal border) Abdomen: Normal Bowel Sounds, Soft, No Tenderness, No Hepatosplenomegaly, No Masses Extremities: No Clubbing, No Cyanosis, No Edema, Normal Pulses, No Tenderness/Swelling Skin: No Rashes, No Breakdown, No Significant Lesion Neuro: Normal Gait, Normal Speech, Strength at 5/5 X4 Ext, Normal Tone, Sensation Intact Psych/Mental Status: Mental Status NL, Mood NL Results Lab Laboratory Tests 09/23/19 03:10 A/P-Cardiology Admission Diagnosis Sepsis Pneumonia Type II myocardial infarction Hypertension Assessment/Plan Sepsis/pneumonia, receiving antibiotic, managed by primary care team and improving. Mild elevation in troponin, could be secondary to severe hypoxemia with type II WA, underlying coronary artery disease cannot be entirely excluded. Patient was on the schedule for stress test later this week, we will consider cardiac catheterization once he is clinically more stable History of paroxysmal atrial fibrillation, currently in sinus rhythm, has not been taking eloquent due to cost. Understand the risks and benefits, we had multiple discussions in the past on the increased risk of stroke. History of GI bleed, colonoscopy showed diverticulosis, no active bleeding at this time. Mild aortic valve stenosis, echo done during this admission showing preserved left ventricular systolic function with ejection fraction 55 percent, mild aortic valve stenosis. Continue to monitor Hypertension, maintained on Lopressor, continue to monitor blood pressure Mild bilateral carotid stenosis, ultrasound was done in July 2019 Tobaccoism, educated on smoking cessation Patient is currently in sinus rhythm, no acute EKG abnormality, I will stop the therapeutic dose of Lovenox and use DVT prophylaxis dose Clinical Quality Measures DVT/VTE Risk/Contraindication: Risk Factor Score Per Nursin RFS Level Per Nursing on Admit: 4+=Very High LUANA LEO MD Sep 23, 2019 09:24
--- NOTE | 2019-09-23 09:33 | Diagnostic Imaging Report ---
EXAMINATION: Chest radiograph, portable AP view. DATE: 09/23/2019 5:03 AM hours. INDICATION: 79-year-old male, hypoxia. COMPARISON: September 22, 2019. FINDINGS: Stable overall appearance of the cardia mediastinal silhouette. There is no identified pneumothorax. There is multifocal lung consolidation which appears mildly improved since comparison exam. IMPRESSION: 1. Nonspecific multifocal lung consolidation bilaterally which appears mildly improved since comparison exam. Dictated by: Dictated on workstation # [id number]
[2019-09-23] MEDS: VANCOMYCIN 1250 MG/NS 250 ML IVPB IV SCH ×4 (09:51→22:09)
[2019-09-23 12:00] VITALS: BP 136/64
--- NOTE | 2019-09-23 12:54 | Diagnostic Imaging Report ---
PROCEDURE: US Venous Lower Ext Francis. TECHNIQUE: Multiple real-time grayscale images were obtained over the lower extremities in various projections, bilaterally. Additional duplex Doppler and color Doppler images were also obtained. INDICATION: Pain swelling and difficulty breathing FINDINGS: The common femoral, femoral, popliteal veins and tibial veins demonstrate normal response to compression, augmentation and Valsalva. There are no abnormal lower extremity fluid collections or masses. IMPRESSION: No evidence of deep venous thrombosis in either lower extremity. Dictated by: Dictated on workstation # [id number]
--- NOTE | 2019-09-23 16:24 | Progress Note - Hospitalist ---
Subjective HPI/CC On Admission Date Seen by Provider: Sep 23, 2019 Time Seen by Provider: 16:19 Zacarias Barakat is a 79-year-old male with past medical history of hypertension, paroxysmal atrial fibrillation, heart failure with preserved ejection fraction, who presented with shortness of breath. He reports that the shortness of breath is been going on for quite a while. He reports that he had some chills overnight. He reports a cough with sputum production. He reports orthopnea. He reports leg swelling. He denies any chest pain. He denies any abdominal pain, nausea, vomiting, diarrhea, or dysuria. He reports that he has not been taking his Eliquis for anticoagulation because he was unable to afford it. He never establish with a primary care physician. 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 Subjective/Events-last exam Pt reports feeling better than when he came in. He was really good this morning but since transfer tot he 4th floor has not felt as well. Oxygen was inadvertently forgotten in transport done. Otherwise no complaints and improving since then. Focused Exam Lactate Level 09/22/19 05:46: Lactic Acid Level 0.98 09/23/19 09:11: Lactic Acid Level 2.55*H 09/23/19 11:10: Lactic Acid Level 1.94 Objective Exam Vital Signs Vital Signs Date Time Temp Pulse Resp B/P (MAP) Pulse Ox O2 Delivery O2 Flow Rate FiO2 09/23/19 15:41 93 Nasal Cannula 4.00 09/23/19 12:50 89 09/23/19 12:00 37.5 20 136/64 (88) 09/22/19 05:47 44 Capillary Refill : Less Than 3 Seconds General Appearance: No Apparent Distress, WD/WN Respiratory: Lungs Clear, No Respiratory Distress Cardiovascular: Regular Rate, Rhythm, No Murmur Gastrointestinal: Normal Bowel Sounds, Non Tender, Soft Neurologic/Psychiatric: Alert, Oriented x3, Normal Mood/Affect Results/Procedures Lab Laboratory Tests 09/23/19 03:10 Patient resulted labs reviewed. Imaging: Reviewed Imaging Report Assessment/Plan Assessment and Plan Assess & Plan/Chief Complaint Acute on chronic heart failure with preserved ejection fraction Acute respiratory failure with hypoxia NSTEMI pAF requiring supplemental oxygen 6 L, no home use Chest x-ray consistent with congestive heart failure, no consolidation BNP elevated Continue IV Lasix Troponin trended up, may get cath later this week Cardiology consulted, appreciate assistance Aspirin 81 mg daily - Not on Eliquis due to cost echocardiogram ordered Sepsis from PNA WBC trended up Continue vancomycin and Zosyn for possible pneumonia lactic acidosis resolved Hypophosphatemia Hypomagnesemia Continue to monitor and replace as needed Diagnosis/Problems Diagnosis/Problems (1) Acute on chronic heart failure with preserved ejection fraction (HFpEF) Status: Acute (2) Acute respiratory failure with hypoxia (3) SIRS (systemic inflammatory response syndrome) Status: Acute (4) NSTEMI (non-ST elevation myocardial infarction) Status: Acute (5) Hypophosphatemia Status: Acute (6) Hypomagnesemia Status: Acute (7) Right middle lobe pneumonia Status: Acute Qualifiers: Pneumonia type: due to unspecified organism Qualified Codes: J18.1 - Lobar pneumonia, unspecified organism (8) Lactic acidosis Status: Resolved Resolution Date/Time: 09/22/19 @ 12:08 Clinical Quality Measures DVT/VTE Risk/Contraindication: Risk Factor Score Per Nursin RFS Level Per Nursing on Admit: 4+=Very High LEWIS RAE MD Sep 23, 2019 16:24
[2019-09-23 17:00] VITALS: BP 135/66
[2019-09-23] MEDS ORDERED: TROUGH ORDER-PHARMACY XX NR (20:00)
[2019-09-23 20:09] VITALS: BP 129/67
[2019-09-23] MEDS: ENOXAPARIN 40 MG/0.4 ML (LOVENOX) SYR SQ SCH (21:03)
[2019-09-24] VITALS (7 sets, daily range): BP systolic 117–145; BP diastolic 53–70
[2019-09-24] MEDS: PIPERACILLIN/TAZO 4.5 GM/NS 100 ML IV SCH ×6 (00:51→17:10)
[2019-09-24] MEDS: RT-ALBUTEROL/IPRATROPIUM 3 ML (DUONEB) VIAL INH SCH ×7 (02:35→22:01)
[2019-09-24 05:15] LABS: BASOPHILS % (AUTO) 0 % (0-10); EOSINOPHILS % (AUTO) 0 % (0-10); HEMATOCRIT 36 % (40-54); HEMOGLOBIN 11.8 G/DL (13.3-17.7); LYMPHOCYTES # (AUTO) 0.8 X 10^3 (1.0-4.0); LYMPHOCYTES % (AUTO) 6 % (12-44); MEAN CORPUSCULAR HEMOGLOBIN 30 PG (25-34); MEAN CORPUSCULAR HGB CONC 33 G/DL (32-36); MEAN CORPUSCULAR VOLUME 91 FL (80-99); MEAN PLATELET VOLUME 10.7 FL (7.4-10.4); MONOCYTES # (AUTO) 0.8 X 10^3 (0.0-1.0); MONOCYTES % (AUTO) 6 % (0-12); NEUTROPHILS # (AUTO) 12.7 X 10^3 (1.8-7.8); NEUTROPHILS % (AUTO) 88 % (42-75); PLATELET COUNT 154 10^3/uL (130-400); RED CELL DISTRIBUTION WIDTH 15.1 % (10.0-14.5); WHITE BLOOD COUNT 14.4 10^3/uL (4.3-11.0)
[2019-09-24 05:33] LABS: CALCIUM 8.3 MG/DL (8.5-10.1); CREATININE SERUM 1.18 MG/DL (0.60-1.30); PHOSPHORUS 2.2 MG/DL (2.3-4.7); POTASSIUM 3.9 MMOL/L (3.6-5.0)
[2019-09-24] MEDS: MAGNESIUM 1 GM/100 ML IVPB 100 ML IV SCH (05:34)
[2019-09-24] MEDS: POTASSIUM CL 10MEQ/50ML IVPB 50 ML IV SCH (05:34)
[2019-09-24] MEDS: KCL 20 MEQ TAB (K-DUR) PO SCH ×3 (05:35→19:43)
[2019-09-24] MEDS: FUROSEMIDE 40 MG/4 ML INJ (LASIX) IVP SCH ×2 (06:31→17:10)
--- NOTE | 2019-09-24 07:57 | Cardiology Progress Note ---
Subjective Date Seen by Provider: Sep 24, 2019 Time Seen by Provider: 07:55 Subjective/Events-last exam Patient is in bed, still having cough, no fever Review of Systems General: No Chills, No Night Sweats, No Fatigue, No Malaise, No Appetite, No Other HEENT: No Head Aches, No Visual Changes, No Eye Pain, No Ear Pain, No Dysphasia, No Sinus Congestion, No Post Nasal Drip, No Sore Throat, No Other Pulmonary: Dyspnea, Cough; No Pleuritic Chest Pain, No Other Cardiovascular: No: Chest Pain, Palpitations, Orthopnea, Paroxysmal Noc. Dyspnea, Edema, Lt Headedness, Other Focused Exam Lactate Level 09/22/19 05:46: Lactic Acid Level 0.98 09/23/19 09:11: Lactic Acid Level 2.55*H 09/23/19 11:10: Lactic Acid Level 1.94 Objective-Cardiology Exam Last Set of Vital Signs Vital Signs 09/22/19 09/24/19 05:47 04:00 Temp 37.7 Pulse 67 Resp 21 B/P (MAP) 141/65 (90) Pulse Ox 92 O2 Delivery Nasal Cannula O2 Flow Rate 4.00 FiO2 44 Capillary Refill : Less Than 3 Seconds I&O Intake and Output 09/24/19 00:00 Intake Total 3465.0 ml Output Total 1100 ml Balance 2365.0 ml Intake Oral 2550 ml IV Total 915.0 ml Output Urine Total 1100 ml # Voids 4 General: Alert, Oriented X3, Cooperative HEENT: Atraumatic, PERRLA Neck: Supple, No JVD, No Thyromegaly Lungs: Normal Air Movement, Other (Bilateral rhonchi) Heart: Regular Rate, Normal S1, Normal S2, Other (Systolic murmur at the left sternal border) Abdomen: Normal Bowel Sounds, Soft, No Tenderness, No Hepatosplenomegaly, No Masses Extremities: No Clubbing, No Cyanosis, No Edema, Normal Pulses, No Tenderness/Swelling Skin: No Rashes, No Breakdown, No Significant Lesion Neuro: Normal Gait, Normal Speech, Strength at 5/5 X4 Ext, Normal Tone, Sensation Intact Psych/Mental Status: Mental Status NL, Mood NL Results Lab Laboratory Tests 09/24/19 05:08 A/P-Cardiology Admission Diagnosis Sepsis Pneumonia Type II myocardial infarction Hypertension Assessment/Plan Sepsis/pneumonia, receiving antibiotic, managed by primary care team and improv ing. Mild elevation in troponin, could be secondary to severe hypoxemia with type II [place], underlying coronary artery disease cannot be entirely excluded. Patient was on the schedule for stress test later this week, I am planning for cardiac catheterization once he is clinically more stable History of paroxysmal atrial fibrillation, currently in sinus rhythm, has not been taking Eliquis due to cost. Understand the risks and benefits, we had multiple discussions in the past on the increased risk of stroke. History of GI bleed, colonoscopy showed diverticulosis, no active bleeding at this time. Mild aortic valve stenosis, echo done during this admission showing preserved left ventricular systolic function with ejection fraction 55 percent, mild aortic valve stenosis. Continue to monitor Hypertension, maintained on Lopressor, continue to monitor blood pressure Mild bilateral carotid stenosis, ultrasound was done in July 2019 Tobaccoism, educated on smoking cessation Patient is currently in sinus rhythm, no acute EKG abnormality, I will stop the therapeutic dose of Lovenox and use DVT prophylaxis dose Clinical Quality Measures DVT/VTE Risk/Contraindication: Risk Factor Score Per Nursin RFS Level Per Nursing on Admit: 4+=Very High LUANA LEO MD Sep 24, 2019 07:57
[2019-09-24] MEDS: meTOprolol TARTRATE 25 MG (LOPRESSOR) TABLET PO SCH ×2 (08:25→19:43)
[2019-09-24] MEDS: ASPIRIN E.C. 81 MG (ECOTRIN) TAB PO SCH (08:25)
[2019-09-24] MEDS: AMIODARONE 200 MG (CORDARONE) TAB PO SCH (08:25)
[2019-09-24] MEDS: PANTOPRAZOLE 40 MG (PROTONIX) VIAL IV SCH (08:25)
[2019-09-24] MEDS: VANCOMYCIN 1250 MG/NS 250 ML IVPB IV SCH ×2 (08:26)
[2019-09-24] MEDS: NICOTINE 21 MG (NICODERM) PATCH TD SCH (08:26)
[2019-09-24] MEDS: PATCH REMOVAL TP SCH (08:27)
--- NOTE | 2019-09-24 08:40 | Diagnostic Imaging Report ---
INDICATION: Pneumonia. COMPARISON: 09/23/2019. FINDINGS: The bilateral infiltrates, greatest in the perihilar and upper lobe distribution, show mild progressive density. No effusion. No pneumothorax. The heart size is stable. IMPRESSION: Worsened bilateral infiltrates. Dictated by: Dictated on workstation # [id number]
[2019-09-24] MEDS ORDERED: guaiFENesin (MUCINEX) 600 MG TAB PO PRN (10:30)
[2019-09-24] MEDS ORDERED: FLUTICASONE NASAL SPRAY (FLONASE) 16 GM BTL NS PRN (10:32)
--- NOTE | 2019-09-24 12:33 | Pulmonary Progress Note ---
Subjective Date Seen by a Provider: Sep 24, 2019 Time Seen by a Provider: 12:28 Subjective/Events-last exam Pt appears to be doing better Sepsis Event Evaluation Height, Weight, BMI Height: '" Weight: lbs. oz. kg; 24.00 BMI Method: Focused Exam Lactate Level 09/22/19 05:46: Lactic Acid Level 0.98 09/23/19 09:11: Lactic Acid Level 2.55*H 09/23/19 11:10: Lactic Acid Level 1.94 Exam Exam Vital Signs Date Time Temp Pulse Resp B/P (MAP) Pulse Ox O2 Delivery O2 Flow Rate FiO2 09/24/19 12:00 36.9 71 18 134/61 (85) 93 Nasal Cannula 4.00 09/24/19 10:44 92 Nasal Cannula 3.00 09/24/19 08:49 Nasal Cannula 3.00 09/24/19 08:45 95 Nasal Cannula 4.00 09/24/19 08:00 36.8 67 18 130/61 (84) 94 Nasal Cannula 4.00 09/24/19 08:00 Nasal Cannula 3.00 09/24/19 06:47 66 09/24/19 04:00 37.7 67 21 141/65 (90) 92 Nasal Cannula 4.00 09/24/19 02:36 92 Nasal Cannula 4.00 09/24/19 01:00 66 09/24/19 00:00 37.8 67 21 130/70 (90) 94 Nasal Cannula 4.00 09/23/19 22:07 94 Nasal Cannula 4.00 09/23/19 20:55 Nasal Cannula 4.00 09/23/19 20:09 37.4 80 20 129/67 (87) 93 Nasal Cannula 4.00 09/23/19 19:01 92 Nasal Cannula 4.00 09/23/19 19:00 70 09/23/19 17:00 37.8 77 20 135/66 (89) 94 Nasal Cannula 4.00 09/23/19 15:41 93 Nasal Cannula 4.00 09/23/19 12:50 89 I & O 09/24/19 07:00 Intake Total 2852.5 ml Output Total 1100 ml Balance 1752.5 ml Height & Weight Height: '" Weight: lbs. oz. kg; 24.00 BMI Method: General Appearance: No Apparent Distress, WD/WN HEENT: PERRL/EOMI, Pharynx Normal Neck: Normal Inspection, Non Tender, Supple Respiratory: No Respiratory Distress, Crackles, Other (wearing nasal cannula 6 L) Cardiovascular: Regular Rate, Rhythm, No Murmur Capillary Refill: Less Than 3 Seconds Extremity: Normal Inspection, Non Tender, Pedal Edema (4+) Neurologic/Psychiatric: Alert, Oriented x3, No Motor/Sensory Deficits, Normal Mood/Affect Skin: Normal Color, Warm/Dry Lymphatic: No Adenopathy Results Lab Laboratory Tests 09/23/19 03:10 09/24/19 05:08 Assessment/Plan Assessment/Plan Severe sepsis secondary to PNA -Zosyn -Javed culture -MRSA swab - is negative Vanco D/C'd -Influenza is negative Paroxysmal atrial fibrillation Diastolic CHF -Continue Lasix Current 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
--- NOTE | 2019-09-24 13:10 | Progress Note - Hospitalist ---
Subjective HPI/CC On Admission Date Seen by Provider: Sep 24, 2019 Time Seen by Provider: 13:08 Zacarias Barakat is a 79-year-old male with past medical history of hypertension, paroxysmal atrial fibrillation, heart failure with preserved ejection fraction, who presented with shortness of breath. He reports that the shortness of breath is been going on for quite a while. He reports that he had some chills overnight. He reports a cough with sputum production. He reports orthopnea. He reports leg swelling. He denies any chest pain. He denies any abdominal pain, nausea, vomiting, diarrhea, or dysuria. He reports that he has not been taking his Eliquis for anticoagulation because he was unable to afford it. He never establish with a primary care physician. He has not followed up with his program services planner following his recent hospitalization in June. Subjective/Events-last exam reports feeling much better. No complaints. Breathing much improved. Focused Exam Lactate Level 09/22/19 05:46: Lactic Acid Level 0.98 09/23/19 09:11: Lactic Acid Level 2.55*H 09/23/19 11:10: Lactic Acid Level 1.94 Objective Exam Vital Signs Vital Signs Date Time Temp Pulse Resp B/P (MAP) Pulse Ox O2 Delivery O2 Flow Rate FiO2 09/24/19 12:00 36.9 71 18 134/61 (85) 93 Nasal Cannula 4.00 09/22/19 05:47 44 Capillary Refill : Less Than 3 Seconds General Appearance: No Apparent Distress, WD/WN Respiratory: Lungs Clear, No Respiratory Distress Cardiovascular: Regular Rate, Rhythm, Systolic Murmur Gastrointestinal: Normal Bowel Sounds, Soft Neurologic/Psychiatric: Alert, Oriented x3 Results/Procedures Lab Laboratory Tests 09/24/19 05:08 Patient resulted labs reviewed. Imaging: Reviewed Imaging Report Assessment/Plan Assessment and Plan Assess & Plan/Chief Complaint Acute on chronic heart failure with preserved ejection fraction Acute respiratory failure with hypoxia NSTEMI pAF requiring supplemental oxygen 6 L, no home use Chest x-ray consistent with congestive heart failure, no consolidation BNP elevated Continue IV Lasix Troponin trended up, discussed with Dr Garcia and can cath on Monday Cardiology consulted, appreciate assistance Aspirin 81 mg daily - Not on Eliquis due to cost echocardiogram with preserved EF and diastolic dysfunction Sepsis from PNA WBC trended down Continue Zosyn for pneumonia lactic acidosis resolved Hypophosphatemia Hypomagnesemia Continue to monitor and replace as needed Diagnosis/Problems Diagnosis/Problems (1) Acute on chronic heart failure with preserved ejection fraction (HFpEF) Status: Acute (2) Acute respiratory failure with hypoxia (3) SIRS (systemic inflammatory response syndrome) Status: Acute (4) NSTEMI (non-ST elevation myocardial infarction) Status: Acute (5) Hypophosphatemia Status: Acute (6) Hypomagnesemia Status: Acute (7) Right middle lobe pneumonia Status: Acute Qualifiers: Pneumonia type: due to unspecified organism Qualified Codes: J18.1 - Lobar pneumonia, unspecified organism (8) Lactic acidosis Status: Resolved Resolution Date/Time: 09/22/19 @ 12:08 Clinical Quality Measures DVT/VTE Risk/Contraindication: Risk Factor Score Per Nursin RFS Level Per Nursing on Admit: 4+=Very High LEWIS RAE MD Sep 24, 2019 13:10
[2019-09-24] MEDS: IBUPROFEN TABLET 200 MG TAB PO PRN (15:55)
[2019-09-24] MEDS: TAMSULOSIN 0.4 MG (FLOMAX) CAP PO SCH (17:14)
[2019-09-24] MEDS: ENOXAPARIN 40 MG/0.4 ML (LOVENOX) SYR SQ SCH (19:44)
[2019-09-25] MEDS: PIPERACILLIN/TAZO 4.5 GM/NS 100 ML IV SCH ×6 (00:16→16:00)
[2019-09-25] MEDS: RT-ALBUTEROL/IPRATROPIUM 3 ML (DUONEB) VIAL INH SCH ×6 (01:55→21:50)
[2019-09-25 04:05] VITALS: BP 133/63
[2019-09-25 05:10] LABS: BASOPHILS % (AUTO) 0 % (0-10); EOSINOPHILS # (AUTO) 0.1 10^3/uL (0.0-0.3); EOSINOPHILS % (AUTO) 1 % (0-10); HEMATOCRIT 36 % (40-54); HEMOGLOBIN 11.3 G/DL (13.3-17.7); LYMPHOCYTES # (AUTO) 0.4 X 10^3 (1.0-4.0); LYMPHOCYTES % (AUTO) 5 % (12-44); MEAN CORPUSCULAR HEMOGLOBIN 29 PG (25-34); MEAN CORPUSCULAR HGB CONC 32 G/DL (32-36); MEAN CORPUSCULAR VOLUME 92 FL (80-99); MONOCYTES # (AUTO) 0.5 X 10^3 (0.0-1.0); MONOCYTES % (AUTO) 6 % (0-12); NEUTROPHILS # (AUTO) 7.1 X 10^3 (1.8-7.8); NEUTROPHILS % (AUTO) 88 % (42-75); PLATELET COUNT 130 10^3/uL (130-400); RED CELL DISTRIBUTION WIDTH 15.1 % (10.0-14.5); WHITE BLOOD COUNT 8.1 10^3/uL (4.3-11.0)
[2019-09-25 05:21] LABS: CALCIUM 8.7 MG/DL (8.5-10.1); CREATININE SERUM 1.25 MG/DL (0.60-1.30); MAGNESIUM 2.2 MG/DL (1.6-2.4); PHOSPHORUS 2.3 MG/DL (2.3-4.7)
[2019-09-25] MEDS: MAGNESIUM 1 GM/100 ML IVPB 100 ML IV SCH (05:39)
[2019-09-25] MEDS: POTASSIUM CL 10MEQ/50ML IVPB 50 ML IV SCH (05:39)
[2019-09-25] MEDS: KCL 20 MEQ TAB (K-DUR) PO SCH ×3 (05:41→20:42)
[2019-09-25] MEDS: FUROSEMIDE 40 MG/4 ML INJ (LASIX) IVP SCH ×2 (06:22→16:00)
[2019-09-25] MEDS ORDERED: SALINE NASAL SPRAY (OCEAN) 45 ML BTL PRN (07:45)
[2019-09-25 08:30] VITALS: BP 158/71
[2019-09-25] MEDS: PANTOPRAZOLE 40 MG (PROTONIX) TAB PO SCH (09:01)
[2019-09-25] MEDS: LORATADINE (CLARITIN) 10 MG TAB PO SCH (09:01)
[2019-09-25] MEDS: meTOprolol TARTRATE 25 MG (LOPRESSOR) TABLET PO SCH ×2 (09:01→20:42)
[2019-09-25] MEDS: AMIODARONE 200 MG (CORDARONE) TAB PO SCH (09:01)
[2019-09-25] MEDS: ASPIRIN E.C. 81 MG (ECOTRIN) TAB PO SCH (09:01)
[2019-09-25] MEDS: PATCH REMOVAL TP SCH (09:02)
[2019-09-25] MEDS: NICOTINE 21 MG (NICODERM) PATCH TD SCH (09:09)
--- NOTE | 2019-09-25 09:21 | Diagnostic Imaging Report ---
INDICATION: Shortness of breath. Comparison made with prior examination 09/24/2019 FINDINGS: There is cardiomegaly. There is bilateral airspace disease. There is no pleural effusion or pneumothorax. Mediastinum is unremarkable. IMPRESSION: Cardiomegaly and bilateral airspace disease some of which may reflect congestive failure. Recommend clinical correlation. Dictated by: Dictated on workstation # [id number]
--- NOTE | 2019-09-25 11:14 | Cardiology Progress Note ---
Subjective Date Seen by Provider: Sep 25, 2019 Time Seen by Provider: 11:13 Subjective/Events-last exam Patient is sitting up in chair, reports worsening dyspnea today. Denies any chest pain Review of Systems General: No Chills, No Night Sweats; Fatigue; No Malaise, No Appetite, No Other HEENT: No Head Aches, No Visual Changes, No Eye Pain, No Ear Pain, No Dysphasia , No Sinus Congestion, No Post Nasal Drip, No Sore Throat, No Other Pulmonary: Dyspnea, Cough; No Pleuritic Chest Pain, No Other Cardiovascular: No: Chest Pain, Palpitations, Orthopnea, Paroxysmal Noc. Dyspnea, Edema, Lt Headedness, Other Focused Exam Lactate Level 09/23/19 09:11: Lactic Acid Level 2.55*H 09/23/19 11:10: Lactic Acid Level 1.94 Objective-Cardiology Exam Last Set of Vital Signs Vital Signs 09/25/19 09/25/19 09/25/19 08:00 12:00 12:43 Temp 37.6 Pulse 77 Resp 20 B/P (MAP) 143/65 (91) Pulse Ox 96 O2 Delivery Nasal Cannula O2 Flow Rate 3.00 FiO2 84 Capillary Refill : Less Than 3 Seconds I&O Intake and Output 09/25/19 00:00 Intake Total 2940 ml Output Total 3575 ml Balance -635 ml Intake Oral 2700 ml IV Total 240 ml Output Urine Total 3575 ml General: Alert, Oriented X3, Cooperative HEENT: Atraumatic, PERRLA Neck: Supple, No JVD, No Thyromegaly Lungs: Normal Air Movement, Other (Bilateral rhonchi) Heart: Regular Rate, Normal S1, Normal S2, Other (Systolic murmur at the left sternal border) Abdomen: Normal Bowel Sounds, Soft, No Tenderness, No Hepatosplenomegaly, No Masses Extremities: No Clubbing, No Cyanosis, No Edema, Normal Pulses, No Tenderness/Swelling Skin: No Rashes, No Breakdown, No Significant Lesion Neuro: Normal Gait, Normal Speech, Strength at 5/5 X4 Ext, Normal Tone, Sensation Intact Psych/Mental Status: Mental Status NL, Mood NL Results Lab Laboratory Tests 09/25/19 04:45 A/P-Cardiology Admission Diagnosis Sepsis Pneumonia Type II myocardial infarction Hypertension Assessment/Plan Sepsis/pneumonia, receiving antibiotic, managed by primary care team, patient reporting worsening dyspnea today, continue to monitor. Mild elevation in troponin, could be secondary to severe hypoxemia with type II [place], underlying coronary artery disease cannot be entirely excluded. Patient was on the schedule for stress test later this week, planning for cardiac catheterization once he is clinically more stable History of paroxysmal atrial fibrillation, currently in sinus rhythm, has not been taking Eliquis due to cost. Understand the risks and benefits, we had mu ltiple discussions in the past on the increased risk of stroke. History of GI bleed, colonoscopy showed diverticulosis, no active bleeding at this time. Mild aortic valve stenosis, echo done during this admission showing preserved left ventricular systolic function with ejection fraction 55 percent, mild aortic valve stenosis. Continue to monitor Hypertension, maintained on Lopressor, continue to monitor blood pressure Mild bilateral carotid stenosis, ultrasound was done in July 2019 Tobaccoism, educated on smoking cessation Patient is currently in sinus rhythm, no acute EKG abnormality Patient was seen and evaluated with Katie, examination performed, management plan was discussed, agree with the current scribed note, I made few changes to the note using Italic font Patient is still having cough and shortness of breath. Managed by primary care physician Re: Coronary artery disease I am planning to proceed with cardiac catheterization later this week, possible on Monday Continue to monitor heart rate and blood pressure Improvement in BNP, normal left ventricular systolic function, probably acute left ventricular diastolic dysfunction due to valvular heart disease with mild aortic valve stenosis. Responding to diuretics Clinical Quality Measures DVT/VTE Risk/Contraindication: Risk Factor Score Per Nursin RFS Level Per Nursing on Admit: 4+=Very High KATIE SHEIKH Sep 25, 2019 11:14 LUANA LEO MD Sep 25, 2019 14:13
[2019-09-25 12:00] VITALS: BP 143/65
--- NOTE | 2019-09-25 13:10 | Pulmonary Progress Note ---
Subjective Time Seen by a Provider: 13:04 Subjective/Events-last exam PT feels better. Sepsis Event Evaluation Height, Weight, BMI Height: '" Weight: lbs. oz. kg; 24.00 BMI Method: Focused Exam Lactate Level 09/23/19 09:11: Lactic Acid Level 2.55*H 09/23/19 11:10: Lactic Acid Level 1.94 Exam Exam Vital Signs Date Time Temp Pulse Resp B/P (MAP) Pulse Ox O2 Delivery O2 Flow Rate FiO2 09/25/19 12:00 37.6 76 20 143/65 (91) 96 Nasal Cannula 3.00 09/25/19 10:22 91 Nasal Cannula 3.00 09/25/19 08:30 37.1 82 18 158/71 (100) 94 Nasal Cannula 3.00 09/25/19 08:00 94 Nasal Cannula 3.00 84 09/25/19 07:18 92 Nasal Cannula 3.00 09/25/19 06:44 79 09/25/19 04:05 37.2 67 18 133/63 (86) 92 Nasal Cannula 3.00 09/25/19 01:56 97 Nasal Cannula 3.00 09/25/19 01:20 60 09/24/19 23:15 37.3 67 20 117/53 (74) 96 Nasal Cannula 3.00 09/24/19 22:02 94 Nasal Cannula 3.00 09/24/19 19:45 Nasal Cannula 3.00 09/24/19 19:13 37.6 74 16 136/60 (85) 94 Nasal Cannula 3.00 09/24/19 19:04 71 09/24/19 18:41 92 Nasal Cannula 3.00 09/24/19 16:25 37.4 09/24/19 15:50 38.0 77 20 145/62 (89) 94 Nasal Cannula 3.00 09/24/19 14:59 93 Nasal Cannula 3.00 I & O 09/25/19 07:00 Intake Total 3210 ml Output Total 3550 ml Balance -340 ml Height & Weight Height: '" Weight: lbs. oz. kg; 24.00 BMI Method: General Appearance: No Apparent Distress, WD/WN HEENT: PERRL/EOMI, Pharynx Normal Neck: Normal Inspection, Non Tender, Supple Respiratory: Lungs Clear, No Respiratory Distress Cardiovascular: Regular Rate, Rhythm, Systolic Murmur Capillary Refill: Less Than 3 Seconds Extremity: Normal Inspection, Non Tender, Pedal Edema (4+) Neurologic/Psychiatric: Alert, Oriented x3 Skin: Normal Color, Warm/Dry Lymphatic: No Adenopathy Results Lab Laboratory Tests 09/24/19 05:08 09/25/19 04:45 Assessment/Plan Assessment/Plan Severe sepsis secondary to PNA -Zosyn -Javed culture -MRSA swab - is negative Vanco D/C'd -Influenza is negative -Repeat CXR Paroxysmal atrial fibrillation Diastolic CHF -Continue Lasix 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
[2019-09-25] MEDS: IBUPROFEN TABLET 200 MG TAB PO PRN (15:56)
[2019-09-25 16:00] VITALS: BP 138/67
--- NOTE | 2019-09-25 16:09 | Progress Note - Hospitalist ---
Subjective HPI/CC On Admission Date Seen by Provider: Sep 25, 2019 Time Seen by Provider: 11:00 Zacarias Barakat is a 79-year-old male with past medical history of hypertension, paroxysmal atrial fibrillation, heart failure with preserved ejection fraction, who presented with shortness of breath. He reports that the shortness of breath is been going on for quite a while. He reports that he had some chills overnight. He reports a cough with sputum production. He reports orthopnea. He reports leg swelling. He denies any chest pain. He denies any abdominal pain, nausea, vomiting, diarrhea, or dysuria. He reports that he has not been taking his Eliquis for anticoagulation because he was unable to afford it. He never establish with a primary care physician. He has not followed up with his insurance collector following his recent hospitalization in June. Subjective/Events-last exam Pt reports not feeling as well today. No specific complaints. A little more short of breath. Feels shakey but not anxious. Focused Exam Lactate Level 09/23/19 09:11: Lactic Acid Level 2.55*H 09/23/19 11:10: Lactic Acid Level 1.94 Objective Exam Vital Signs Vital Signs Date Time Temp Pulse Resp B/P (MAP) Pulse Ox O2 Delivery O2 Flow Rate FiO2 09/25/19 12:43 77 09/25/19 12:00 37.6 20 143/65 (91) 96 Nasal Cannula 3.00 09/25/19 08:00 84 Capillary Refill : Less Than 3 Seconds General Appearance: No Apparent Distress, Chronically ill Respiratory: No Accessory Muscle Use, No Respiratory Distress, Decreased Breath Sounds; No Wheezing Cardiovascular: Regular Rate, Rhythm, Systolic Murmur Gastrointestinal: Normal Bowel Sounds, Non Tender, Soft Neurologic/Psychiatric: Alert, Oriented x3, Normal Mood/Affect Results/Procedures Lab Laboratory Tests 09/25/19 04:45 Patient resulted labs reviewed. Imaging: Reviewed Imaging Report Assessment/Plan Assessment and Plan Assess & Plan/Chief Complaint Acute on chronic heart failure with preserved ejection fraction Acute respiratory failure with hypoxia NSTEMI pAF requiring supplemental oxygen 3L- I check O2 sat while at bedside and was 93% Chest x-ray consistent with congestive heart failure, no consolidation Continue IV Lasix Troponin trended up, discussed with Dr Garcia and can cath on Monday if improved Cardiology consulted, appreciate assistance Aspirin 81 mg daily - Not on Eliquis due to cost echocardiogram with preserved EF and diastolic dysfunction Sepsis from PNA WBC trended down Continue Zosyn for pneumonia lactic acidosis resolved - Pulm consulted, appreciate recs Hypophosphatemia Hypomagnesemia Continue to monitor and replace as needed Diagnosis/Problems Diagnosis/Problems (1) Acute on chronic heart failure with preserved ejection fraction (HFpEF) Status: Acute (2) Acute respiratory failure with hypoxia (3) SIRS (systemic inflammatory response syndrome) Status: Acute (4) NSTEMI (non-ST elevation myocardial infarction) Status: Acute (5) Hypophosphatemia Status: Acute (6) Hypomagnesemia Status: Acute (7) Right middle lobe pneumonia Status: Acute Qualifiers: Pneumonia type: due to unspecified organism Qualified Codes: J18.1 - Lobar pneumonia, unspecified organism (8) Lactic acidosis Status: Resolved Resolution Date/Time: 09/22/19 @ 12:08 Clinical Quality Measures DVT/VTE Risk/Contraindication: Risk Factor Score Per Nursin RFS Level Per Nursing on Admit: 4+=Very High LEWIS RAE MD Sep 25, 2019 16:08
[2019-09-25] MEDS: TAMSULOSIN 0.4 MG (FLOMAX) CAP PO SCH (17:56)
[2019-09-25 20:00] VITALS: BP 112/65
[2019-09-25] MEDS: ENOXAPARIN 40 MG/0.4 ML (LOVENOX) SYR SQ SCH (20:42)
[2019-09-26] VITALS (12 sets, daily range): BP systolic 126–161; BP diastolic 54–69
[2019-09-26] MEDS: PIPERACILLIN/TAZO 4.5 GM/NS 100 ML IV SCH ×6 (00:15→17:28)
[2019-09-26] MEDS: RT-ALBUTEROL/IPRATROPIUM 3 ML (DUONEB) VIAL INH SCH ×6 (03:39→22:11)
[2019-09-26 05:38] LABS: BASOPHILS % (AUTO) 0 % (0-10); EOSINOPHILS # (AUTO) 0.3 10^3/uL (0.0-0.3); EOSINOPHILS % (AUTO) 5 % (0-10); HEMATOCRIT 40 % (40-54); HEMOGLOBIN 13.1 G/DL (13.3-17.7); LYMPHOCYTES # (AUTO) 0.4 X 10^3 (1.0-4.0); LYMPHOCYTES % (AUTO) 6 % (12-44); MEAN CORPUSCULAR HEMOGLOBIN 30 PG (25-34); MEAN CORPUSCULAR HGB CONC 33 G/DL (32-36); MEAN CORPUSCULAR VOLUME 91 FL (80-99); MEAN PLATELET VOLUME 11.2 FL (7.4-10.4); MONOCYTES # (AUTO) 0.6 X 10^3 (0.0-1.0); MONOCYTES % (AUTO) 8 % (0-12); NEUTROPHILS # (AUTO) 5.4 X 10^3 (1.8-7.8); NEUTROPHILS % (AUTO) 81 % (42-75); PLATELET COUNT 156 10^3/uL (130-400); RED CELL DISTRIBUTION WIDTH 14.9 % (10.0-14.5); WHITE BLOOD COUNT 6.7 10^3/uL (4.3-11.0)
[2019-09-26 05:56] LABS: CALCIUM 9.1 MG/DL (8.5-10.1); CREATININE SERUM 1.4 MG/DL (0.60-1.30); MAGNESIUM 2.3 MG/DL (1.6-2.4); PHOSPHORUS 3.1 MG/DL (2.3-4.7); POTASSIUM 3.8 MMOL/L (3.6-5.0)
[2019-09-26] MEDS: KCL 20 MEQ TAB (K-DUR) PO SCH ×3 (06:00→20:56)
[2019-09-26] MEDS: POTASSIUM CL 10MEQ/50ML IVPB 50 ML IV SCH (06:00)
[2019-09-26] MEDS: MAGNESIUM 1 GM/100 ML IVPB 100 ML IV SCH (06:00)
[2019-09-26] MEDS: FUROSEMIDE 40 MG/4 ML INJ (LASIX) IVP SCH (06:35)
--- NOTE | 2019-09-26 08:13 | Cardiology Progress Note ---
Subjective Date Seen by Provider: Sep 26, 2019 Time Seen by Provider: 08:12 Subjective/Events-last exam patient is sitting in bed, eating breakfast, feeling better, still having shortness of breath Review of Systems General: No Chills, No Night Sweats; Fatigue; No Malaise, No Appetite, No Other HEENT: No Head Aches, No Visual Changes, No Eye Pain, No Ear Pain, No Dy sphasia, No Sinus Congestion, No Post Nasal Drip, No Sore Throat, No Other Pulmonary: Dyspnea; No Cough, No Pleuritic Chest Pain, No Other Cardiovascular: No: Chest Pain, Palpitations, Orthopnea, Paroxysmal Noc. Dyspnea, Edema, Lt Headedness, Other Focused Exam Lactate Level Objective-Cardiology Exam Last Set of Vital Signs Vital Signs 09/26/19 09/26/19 09/26/19 08:00 12:00 12:16 Temp 36.6 Pulse 62 Resp 16 B/P (MAP) 131/54 (79) Pulse Ox 95 O2 Delivery Nasal Cannula O2 Flow Rate 3.00 FiO2 84 Capillary Refill : Less Than 3 Seconds I&O Intake and Output 09/26/19 00:00 Intake Total 1610 ml Output Total 1475 ml Balance 135 ml Intake Oral 1370 ml IV Total 240 ml Output Urine Total 1475 ml # Voids 4 Daily Weight Change No General: Alert, Oriented X3, Cooperative HEENT: Atraumatic, PERRLA Neck: Supple, No JVD, No Thyromegaly Lungs: Normal Air Movement, Other (Bilateral rhonchi) Heart: Regular Rate, Normal S1, Normal S2, Other (Systolic murmur at the left sternal border) Abdomen: Normal Bowel Sounds, Soft, No Tenderness, No Hepatosplenomegaly, No Masses Extremities: No Clubbing, No Cyanosis, No Edema, Normal Pulses, No Tenderness/Swelling Skin: No Rashes, No Breakdown, No Significant Lesion Neuro: Normal Gait, Normal Speech, Strength at 5/5 X4 Ext, Normal Tone, Sensation Intact Psych/Mental Status: Mental Status NL, Mood NL Results Lab Laboratory Tests 09/26/19 05:27 A/P-Cardiology Admission Diagnosis Sepsis Pneumonia Type II myocardial infarction Hypertension Assessment/Plan Sepsis/pneumonia, receiving antibiotic, managed by primary care team, patient reporting worsening dyspnea today, continue to monitor. Mild elevation in troponin, could be secondary to severe hypoxemia with type II [place], underlying coronary artery disease cannot be entirely excluded. Patient was on the schedule for stress test later this week, planning for cardiac catheterization today History of paroxysmal atrial fibrillation, currently in sinus rhythm, has not been taking Eliquis due to cost. Understand the risks and benefits, we had multiple discussions in the past on the increased risk of stroke. History of GI bleed, colonoscopy showed diverticulosis, no active bleeding at this time. Mild aortic valve stenosis, echo done during this admission showing preserved left ventricular systolic function with ejection fraction 55 percent, mild aortic valve stenosis. Continue to monitor Hypertension, maintained on Lopressor, continue to monitor blood pressure Mild bilateral carotid stenosis, ultrasound was done in July 2019 Tobaccoism, educated on smoking cessation Patient is currently in sinus rhythm, no acute EKG abnormality Addendum Cardiac catheterization was carried out showing multivessel coronary artery disease, severe left renal artery stenosis, I will arrange to transfer to a tertiary care center for evaluation for possible CABG versus high risk multivessel intervention Clinical Quality Measures DVT/VTE Risk/Contraindication: Risk Factor Score Per Nursin RFS Level Per Nursing on Admit: 4+=Very High LUANA LEO MD Sep 26, 2019 08:13
[2019-09-26] MEDS ORDERED: NS IV 1000 ML 1,000 ML IV SCH ×2 (08:15→15:22)
[2019-09-26] MEDS: AMIODARONE 200 MG (CORDARONE) TAB PO SCH (08:36)
[2019-09-26] MEDS: LORATADINE (CLARITIN) 10 MG TAB PO SCH (08:36)
[2019-09-26] MEDS: ASPIRIN E.C. 81 MG (ECOTRIN) TAB PO SCH (08:36)
[2019-09-26] MEDS: NICOTINE 21 MG (NICODERM) PATCH TD SCH (08:38)
[2019-09-26] MEDS: PATCH REMOVAL TP SCH (08:38)
[2019-09-26] MEDS: meTOprolol TARTRATE 25 MG (LOPRESSOR) TABLET PO SCH ×2 (08:44→22:01)
[2019-09-26] MEDS: PANTOPRAZOLE 40 MG (PROTONIX) TAB PO SCH (08:44)
[2019-09-26] MEDS ORDERED: LIDOCAINE 1% INJ 20 ML 20 ML VIAL ONE (09:31)
[2019-09-26] MEDS ORDERED: HEParin (CATH LAB) 2,000 ML IV ONE (09:32)
--- NOTE | 2019-09-26 10:41 | NUR ---
CONSENT SIGNED AND MRSA SWABS OBTAINED AT THIS TIME. PATIENT LAST SIP OF WATER WAS [id number] TH9IS A.M. PATIENT SCHEDULED TO GO TO NURSE INTERN AROUND 1500.
--- NOTE | 2019-09-26 12:23 | Pulmonary Progress Note ---
Subjective Time Seen by a Provider: 12:21 Subjective/Events-last exam No complications noted. Sepsis Event Evaluation Height, Weight, BMI Height: '" Weight: lbs. oz. kg; 24.00 BMI Method: Exam Exam Vital Signs Date Time Temp Pulse Resp B/P (MAP) Pulse Ox O2 Delivery O2 Flow Rate FiO2 09/26/19 12:16 62 09/26/19 11:10 96 Nasal Cannula 3.00 09/26/19 08:00 36.2 66 18 132/64 (86) 95 Nasal Cannula 3.00 09/26/19 08:00 95 Nasal Cannula 3.00 84 09/26/19 07:25 92 Nasal Cannula 3.00 09/26/19 07:00 60 09/26/19 04:00 36.6 59 16 126/65 (85) 96 Nasal Cannula 3.00 09/26/19 03:39 92 Nasal Cannula 3.00 09/26/19 01:00 60 09/26/19 00:00 36.4 59 18 132/65 (87) 98 Nasal Cannula 3.00 09/25/19 21:50 91 Nasal Cannula 3.00 09/25/19 20:00 37.0 65 18 112/65 (81) 94 Nasal Cannula 3.00 09/25/19 19:25 Nasal Cannula 3.00 09/25/19 19:00 70 09/25/19 16:22 91 Nasal Cannula 3.00 09/25/19 16:00 38.6 76 20 138/67 (90) 93 Nasal Cannula 3.00 09/25/19 12:43 77 I & O 09/26/19 07:00 Intake Total 1490 ml Output Total 1175 ml Balance 315 ml Height & Weight Height: '" Weight: lbs. oz. kg; 24.00 BMI Method: General Appearance: No Apparent Distress, Chronically ill HEENT: PERRL/EOMI, Pharynx Normal Neck: Normal Inspection, Non Tender, Supple Respiratory: No Accessory Muscle Use, No Respiratory Distress, Decreased Breath Sounds; No Wheezing Cardiovascular: Regular Rate, Rhythm, Systolic Murmur Capillary Refill: Less Than 3 Seconds Extremity: Normal Inspection, Non Tender, Pedal Edema (4+) Neurologic/Psychiatric: Alert, Oriented x3, Normal Mood/Affect Skin: Normal Color, Warm/Dry Lymphatic: No Adenopathy Results Lab Laboratory Tests 09/25/19 04:45 09/26/19 05:27 Assessment/Plan Assessment/Plan Severe sepsis secondary to PNA -Zosyn -Javed culture -MRSA swab - is negative -Influenza is negative Paroxysmal atrial fibrillation Diastolic CHF -Dr. Garcia is planning on doing cath today. Current tobacco use with probable COPD -Duonebs Q 4 SANTIAGO CLEMENT DO Sep 26, 2019 12:23
[2019-09-26] MEDS ORDERED: MIDAZOLAM 5 MG/5 ML (VERSED) VIAL ONE (14:03)
[2019-09-26] MEDS ORDERED: fentaNYL INJECTION 100 MCG/2 ML AMP ONE (14:03)
--- NOTE | 2019-09-26 14:11 | Progress Note - Hospitalist ---
Subjective HPI/CC On Admission Date Seen by Provider: Sep 26, 2019 Time Seen by Provider: 14:10 Zacarias Barakat is a 79-year-old male with past medical history of hypertension, paroxysmal atrial fibrillation, heart failure with preserved ejection fraction, who presented with shortness of breath. He reports that the shortness of breath is been going on for quite a while. He reports that he had some chills overnight. He reports a cough with sputum production. He reports orthopnea. He reports leg swelling. He denies any chest pain. He denies any abdominal pain, nausea, vomiting, diarrhea, or dysuria. He reports that he has not been taking his Eliquis for anticoagulation because he was unable to afford it. He never establish with a primary care physician. 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 Subjective/Events-last exam Pt reports feeling much better today. Up and ambulating without much difficulty. Still on oxygen. No other complaints. Plan for cardiac cath today. Objective Exam Vital Signs Vital Signs Date Time Temp Pulse Resp B/P (MAP) Pulse Ox O2 Delivery O2 Flow Rate FiO2 09/26/19 12:16 62 09/26/19 12:00 36.6 16 131/54 (79) 95 Nasal Cannula 3.00 09/26/19 08:00 84 Capillary Refill : Less Than 3 Seconds General Appearance: No Apparent Distress, WD/WN Respiratory: Lungs Clear, No Respiratory Distress, Other (on oxygen) Cardiovascular: Regular Rate, Rhythm, Systolic Murmur Neurologic/Psychiatric: Alert, Oriented x3, Normal Mood/Affect Results/Procedures Lab Laboratory Tests 09/26/19 05:27 Patient resulted labs reviewed. Imaging: Reviewed Imaging Report Assessment/Plan Assessment and Plan Assess & Plan/Chief Complaint Acute on chronic heart failure with preserved ejection fraction Acute respiratory failure with hypoxia NSTEMI pAF requiring supplemental oxygen 3L- I check O2 sat while at bedside and was 93% Chest x-ray consistent with congestive heart failure, no consolidation Continue IV Lasix Troponin trended up, discussed with Dr Garcia and plan for cath today Cardiology consulted, appreciate assistance Aspirin 81 mg daily - Not on Eliquis due to cost echocardiogram with preserved EF and diastolic dysfunction Sepsis (resolved) from PNA Continue Zosyn for pneumonia - Pulm consulted, appreciate recs Hypophosphatemia Hypomagnesemia Continue to monitor and replace as needed Diagnosis/Problems Diagnosis/Problems (1) Acute on chronic heart failure with preserved ejection fraction (HFpEF) Status: Acute (2) Acute respiratory failure with hypoxia (3) SIRS (systemic inflammatory response syndrome) Status: Acute (4) NSTEMI (non-ST elevation myocardial infarction) Status: Acute (5) Hypophosphatemia Status: Acute (6) Hypomagnesemia Status: Acute (7) Right middle lobe pneumonia Status: Acute Qualifiers: Pneumonia type: due to unspecified organism Qualified Codes: J18.1 - Lobar pneumonia, unspecified organism (8) Lactic acidosis Status: Resolved Resolution Date/Time: 09/22/19 @ 12:08 Clinical Quality Measures DVT/VTE Risk/Contraindication: Risk Factor Score Per Nursin RFS Level Per Nursing on Admit: 4+=Very High LEWIS RAE MD Sep 26, 2019 14:11
--- NOTE | 2019-09-26 14:36 | NUR ---
pt left the floor for heart cath.
[2019-09-26] MEDS ORDERED: PATIENT MAY USE OWN MEDS, ALL PO SCH (15:30)
--- NOTE | 2019-09-26 16:19 | Cardiac Cath Report ---
Cardiac Cath Report Physician (s)/Software Developer Consultant (s) Physician LUANA LEO MD Pre-Procedure Diagnosis Pre-Procedure Diagnosis: Coronary artery disease Post-Procedure Note Procedure Start Date: Sep 26, 2019 Name of Procedure: Coronary angiogram Aortic arch angiogram Abdominal aortogram Findings/Procedure Note PROCEDURE NOTE: 79-year-old gentleman with history of coronary artery disease, admitted with pneumonia, had elevation in troponin level, he was scheduled for stress test as an outpatient, it was canceled, I decided to proceed with cardiac catheterization possible PTCA. After explaining the procedure to the patient, all pros and cons were explained, all questions were answered. The patient signed the consent and then he was placed on the cardiac catheterization laboratory. Groin was prepped SL fashion local anesthesia was used. Sheath placed in the right femoral artery. Breezy right and left catheter were used to access the coronary system. Pigtail was advanced to the aorta, aortic arch angiogram was done then pulled down to the abdominal aorta and abdominal aortogram was done, I had difficulty advancing the J-wire initially, I used a long exchange wire to the procedure. At the end of the procedure the sheath was removed. Closure device was used FINDINGS: ANATOMY: Left Main mild to moderate tubular stenosis Left Anterior Descending has moderate disease proximally Ramus intermedius has severe proximal stenosis followed by aneurysmal dilatation Left Circumflex is small to moderate in size, has severe stenosis proximally Right Coronory Artery is moderate in size with severe stenosis at the midportion LV Gram was not done, pressure was measured Aorta evaluation was done with aortic arch angiogram showed slightly prominent aortic arch, hypertensive changes, normal origin of the innominate artery, carotid artery and subclavian artery, no aneurysm or dissection was noted Abdominal aortogram was done in the AP position showing normal abdominal aorta with mild hypertensive changes, left renal artery has severe proximal stenosis, right renal artery did not show significant disease Femoral artery angiogram done through the sheath which showed small dissection in the iliac and femoral artery, without limiting the flow CONCLUSION: 1. Severe multivessel coronary artery disease involving proximal ramus intermedius and proximal circumflex artery and mid right coronary artery 2. Mild to moderate tubular stenosis in the left main and LAD 3. Severe left renal artery stenosis 4. 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 Hypertensive changes in the thoracic and abdominal aorta 6. Known to have mild aortic valve stenosis, the aortic valve was not crossed on this study DISCUSSION AND RECOMMENDATION: Anesthesia Type: Conscious Sedation Estimated blood loss (mL): 25 ml Contrast Amount: 76 ml Total Radiation Dose: 610 mGy Post-Procedure Diagnosis (1) Acute on chronic heart failure with preserved ejection fraction (HFpEF) (2) Acute respiratory failure with hypoxia (3) NSTEMI (non-ST elevation myocardial infarction) (4) Right middle lobe pneumonia Qualifiers: Qualified Codes: J18.1 - Lobar pneumonia, unspecified organism LUANA LEO MD Sep 26, 2019 16:19
--- NOTE | 2019-09-26 16:52 | Cardiac Procedure Note-CS/ASA ---
Pre-Procedure Note Pre-Op Procedure Note H&P Reviewed The H&P was reviewed, patient examined and no changes noted. Date H&P Reviewed: Sep 26, 2019 Time H&P Reviewed: 15:00 Conscious Sedation Pre-Proced Time 15:00 ASA Score 3 For ASA 3 and 4: Consider anesthesia and medical clearance. Also, for patients with a history of failed moderate sedation consider anesthesia. Airway Lungs Heart ASA score ASA 1: a normal healthy patient ASA 2: a patient with a mild systemic disease (mid diabetes, controlled hypertension, obesity x ASA 3: a patient with a severe systemic disease that limits activity (angina, COPD, prior Myocardial infarction) ASA 4: a patient with an incapacitating disease that is a constant threat to life (CHF, renal failure) ASA 5: a moribund patient not expected to survive 24 hrs. (ruptured aneurysm) ASA 6: a declared brain- patient whose organs are being harvested. For emergent operations, add the letter E after the classification Mallampati Classification Grade 3 Sedation Plan Analgesia, Amnesia, Plan communicated to team members, Discussed options with patient/fam, Discussed risks with patient/fam The patient is an appropriate candidate to undergo the planned procedure, sedation, and anesthesia. The patient immediately re-assessed prior to indication. LUANA LEO MD Sep 26, 2019 4:52 pm
--- NOTE | 2019-09-26 17:26 | NUR ---
THIS RN TUBES ONE DOSE OF ZOSYN UP TO KAVITA MANSFIELD IN ICU SINCE HE HAD A HEART CATH AND IS NOT ON 4TH FLOOR AT THIS TIME.
[2019-09-26] MEDS: TAMSULOSIN 0.4 MG (FLOMAX) CAP PO SCH (17:33)
--- NOTE | 2019-09-26 22:00 | NUR ---
2215: REPORT GIVEN TO AD BOND CLERK AT THIS TIME AND [facility] NOTIFIED OF TRANSFER. 2330: [facility] HERE. 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 RIGHT GROIN SITE ASSESSED WITH EMS PRIOR TO DEPARTURE; SITE REMAINS SOFT WITH NO BRUISING OR HARDNESS. DRESSING IS CLEAN, DRY, AND IN TACT.
[2019-09-26] MEDS: ENOXAPARIN 40 MG/0.4 ML (LOVENOX) SYR SQ SCH (22:02)
--- OUTSIDE RECORDS SUMMARY | 2019-09-30 08:55 | XMS REPORT | Continuity of Care Document ---
Author Organization Unknown Address Unknown Phone Unavailable Allergies Active Description Code Type Severity Reaction Onset Reported/Identified Relationship to Patient Clinical Status Yes No Known Drug Allergies [id number] Drug Allergy Unknown N/A 06/30/2019 Medications There is no data. Problems Date Dx Coded Attending Type Code Diagnosis Diagnosed By 07/03/2019 JACKIE DUBON MD Ot D64. 9 ANEMIA, UNSPECIFIED 07/03/2019 JACKIE DUBON MD Ot E78. 5 HYPERLIPIDEMIA, UNSPECIFIED 07/03/2019 JACKIE DUBON MD Ot F17.290 NICOTINE DEPENDENCE, OTHER TOBACCO PRODU 07/03/2019 JACKIE DUBON MD Ot I10 ESSENTIAL (PRIMARY) HYPERTENSION 07/03/2019 JACKIE DUBON MD Ot I48. 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 9 CHEST PAIN, UNSPECIFIED 07/03/2019 JACKIE DUBON MD Ot R31. 9 HEMATURIA, UNSPECIFIED 07/04/2019 JACKIE DUBON MD Ot D64. 9 ANEMIA, UNSPECIFIED 07/04/2019 JACKIE DUBON MD Ot E78. 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 9 CHEST PAIN, UNSPECIFIED 07/04/2019 JACKIE DUBON MD Ot R31. 9 HEMATURIA, UNSPECIFIED 07/04/2019 JACKIE DUBON MD Ot D62 ACUTE POSTHEMORRHAGIC ANEMIA 07/04/2019 JACKIE DUBON MD Ot D64. 9 ANEMIA, UNSPECIFIED 07/04/2019 JACKIE DUBON MD Ot E78. 5 HYPERLIPIDEMIA, UNSPECIFIED 07/04/2019 JACKIE DUBON MD Ot F17.290 NICOTINE DEPENDENCE, OTHER TOBACCO PRODU 07/04/2019 JACKIE DUBON MD Ot I10 ESSENTIAL (PRIMARY) HYPERTENSION 07/04/2019 JACKIE DUBON MD Ot I20. 9 ANGINA PECTORIS, UNSPECIFIED 07/04/2019 JACKIE DUBON MD Ot I35. 0 NONRHEUMATIC AORTIC (VALVE) STENOSIS 07/04/2019 JACKIE DUBON MD Ot I48. 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 9 CHEST PAIN, UNSPECIFIED 07/04/2019 JACKIE DUBON MD Ot R31. 9 HEMATURIA, UNSPECIFIED 09/25/2019 JACKIE DUBON MD Ot A41. 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 2 ACIDOSIS 09/25/2019 JACKIE DUBON MD Ot F17.290 NICOTINE DEPENDENCE, OTHER TOBACCO PRODU 09/25/2019 JACKIE DUBON MD Ot I11. 0 HYPERTENSIVE HEART DISEASE WITH HEART FA 09/25/2019 JACKIE DUBON MD Ot I21. A1 MYOCARDIAL INFARCTION TYPE 2 09/25/2019 JACKIE DUBON MD Ot I35. 0 NONRHEUMATIC AORTIC (VALVE) STENOSIS 09/25/2019 JACKIE DUBON MD Ot I48. 0 PAROXYSMAL ATRIAL FIBRILLATION 09/25/2019 JACKIE DUBON MD Ot I50. 31 ACUTE DIASTOLIC (CONGESTIVE) HEART FAILU 09/25/2019 JACKIE DUBON MD Ot I65. 23 OCCLUSION AND STENOSIS OF BILATERAL [place] 09/25/2019 JACKIE DUBON MD Ot J18. 1 LOBAR PNEUMONIA, UNSPECIFIED ORGANISM 09/25/2019 JACKIE DUBON MD Ot J44. 9 CHRONIC OBSTRUCTIVE PULMONARY DISEASE, U 09/25/2019 JACKIE DUBON MD Ot J96. 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 2 HEMOPTYSIS 09/25/2019 JACKIE DUBON MD Ot R65. 20 SEVERE SEPSIS WITHOUT SEPTIC SHOCK 09/25/2019 JACKIE DUBON MD Ot Z91.120 PT INTENTL UNDRDOSE OF MEDS REGIMEN DUE 09/26/2019 JACKIE DUBON MD, Ot A41. 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 2 ACIDOSIS 09/26/2019 JACKIE DUBON MD Ot F17.290 NICOTINE DEPENDENCE, OTHER TOBACCO PRODU 09/26/2019 JACKIE DUBON MD Ot I11. 0 HYPERTENSIVE HEART DISEASE WITH HEART FA 09/26/2019 JACKIE DUBON MD Ot I21. A1 MYOCARDIAL INFARCTION TYPE 2 09/26/2019 JACKIE DUBON MD Ot I35. 0 NONRHEUMATIC AORTIC (VALVE) STENOSIS 09/26/2019 JACKIE DUBON MD Ot I48. 0 PAROXYSMAL ATRIAL FIBRILLATION 09/26/2019 JACKIE DUBON MD Ot I50. 31 ACUTE DIASTOLIC (CONGESTIVE) HEART FAILU 09/26/2019 JACKIE DUBON MD Ot I65. 23 OCCLUSION AND STENOSIS OF BILATERAL [place] 09/26/2019 JACKIE DUBON MD Ot J18. 1 LOBAR PNEUMONIA, UNSPECIFIED ORGANISM 09/26/2019 JACKIE DUBON MD, Ot J44. 9 CHRONIC OBSTRUCTIVE PULMONARY DISEASE, U 09/26/2019 JACKIE DUBON MD Ot J96. 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 2 HEMOPTYSIS 09/26/2019 JACKIE DUBON MD Ot R65. 20 SEVERE SEPSIS WITHOUT SEPTIC SHOCK 09/26/2019 JACKIE DUBON MD, Ot Z91.120 PT INTENTL UNDRDOSE OF MEDS REGIMEN DUE 09/26/2019 JACKIE DUBON MD, Ot A41. 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 2 ACIDOSIS 09/26/2019 JACKIE DUBON MD, Ot F17.290 NICOTINE DEPENDENCE, OTHER TOBACCO PRODU 09/26/2019 JACKIE DUBON MD, Ot I11. 0 HYPERTENSIVE HEART DISEASE WITH HEART FA 09/26/2019 JACKIE DUBON MD, Ot I21. A1 MYOCARDIAL INFARCTION TYPE 2 09/26/2019 JACKIE DUBON MD, Ot I35. 0 NONRHEUMATIC AORTIC (VALVE) STENOSIS 09/26/2019 JACKIE DUBON MD, Ot I48. 0 PAROXYSMAL ATRIAL FIBRILLATION 09/26/2019 JACKIE DUBON MD, Ot I50. 31 ACUTE DIASTOLIC (CONGESTIVE) HEART FAILU 09/26/2019 JACKIE DUBON MD, Ot I65. 23 OCCLUSION AND STENOSIS OF BILATERAL [place] 09/26/2019 JACKIE DUBON MD, Ot J18. 1 LOBAR PNEUMONIA, UNSPECIFIED ORGANISM 09/26/2019 JACKIE DUBON MD, Ot J44. 9 CHRONIC OBSTRUCTIVE PULMONARY DISEASE, U 09/26/2019 JACKIE DUBON MD, Ot J96. 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 2 HEMOPTYSIS 09/26/2019 JACKIE DUBON MD Ot R65. 20 SEVERE SEPSIS WITHOUT SEPTIC SHOCK 09/26/2019 JACKIE DUBON MD, Ot Z91.120 PT INTENTL UNDRDOSE OF MEDS REGIMEN DUE Procedures Code Description Performed By Per maribel On [id number] IN SPECTION OF LOWER INTESTINAL TRACT, EN 07/02/2019 Results Test Result Range Complete blood count (CBC) with automate d white blood cell (WBC) differential - 06/30/19 12:53 Blood leukocytes automated count (number/volume) 8.1 10*3/uL 4.3-11.0 Blood erythrocytes automated count (number/volume) 4.81 10*6/uL 4.35-5.85 Venous blood hemoglobin measurement (mass/volume) 14.6 g/dL 13.3-17.7 Blood hematocrit (volume fraction) 45 % 40-54 Automated erythrocyte mean corpuscular volume 93 [ foz_us] 80-99 Automated erythrocyte mean corpuscular h emoglobin (mass per erythrocyte) 30 pg 25-34 Automated erythrocyte mean corpuscular h emoglobin concentration measurement (mass/volume) 33 g/dL 32-36 Automated erythrocyte distribution width ratio 14. 2 % 10.0- 14.5 Automated blood platelet count (count/volume) 215 10*3/uL 130-400 Automated blood platelet mean volume measurement 10.5 [foz_us] 7.4-10.4 Automated blood neutrophils/100 leukocytes 77 % 42-75 Automated blood lymphocytes/100 leukocytes 14 % 12-44 Blood monocytes/100 leukocytes 7 % 0-12 Automated blood eosinophils/100 leukocytes 2 % 0-10 Automated blood basophils/100 leukocytes 0 % 0-10 Blood neutrophils automated count (number/volume) 6.2 10*3 1.8-7.8 Blood lymphocytes automated count (number/volume) 1.1 10*3 1.0-4.0 Blood monocytes automated count (number/volume) 0. 5 10*3 0.0-1.0 Automated eosinophil count 0.1 10*3/uL 0 .0-0.3 Automated blood basophil count (count/volume) 0.0 10*3/uL 0.0-0.1 PT panel in platelet poor plasma by coag ulation assay - 06/30/19 12:53 Prothrombin time (PT) in platelet poor plasma by coagu lation assay 13.5 s 12.2-14.7 INR in platelet poor plasma or blood by coagulation as say 1.0 0.8-1.4 Activated partial thromboplastin time (a PTT) in platelet poor plasma bycoagulation assay - 06/30/19 12:53 Activated partial thromboplastin time (a PTT) in platelet poor plasma bycoagulation assay 31 s 24-35 Complete urinalysis with reflex to cultu re - 06/30/19 12:53 Urine color determination YELLOW NRG Urine clarity determination CLEAR NR G Urine pH measurement by test strip 7.0 5-9 Specific gravity of urine by test strip 1.015 1.016-1.022 Urine protein assay by test strip, semi-quantitative NEGATIVE NEGATIVE Urine glucose detection by automated test strip NE GATIVE NEGATIVE Erythrocytes detection in urine sediment by light micr oscopy 2+ NEGATIVE Urine ketones detection by automated test strip NE GATIVE NEGATIVE Urine nitrite detection by test strip NEGATIVE NEGATIVE Urine total bilirubin detection by test strip NEGA TIVE NEGATIVE Urine urobilinogen measurement by automated test strip (mass/volume) 0.2 mg/dL < = 1.0 Urine leukocyte esterase detection by dipstick NEG ATIVE NEGATIVE Automated urine sediment erythrocyte cou nt by microscopy (number/high power field) [HPF] NRG Automated urine sediment leukocyte count by microscopy (number/high power field) [HPF] NRG Bacteria detection in urine sediment by light microsco py NEGATIVE NRG Squamous epithelial cells detection in u rine sediment by light microscopy 0-2 NRG Crystals detection in urine sediment by light microsco py PRESENT NRG Casts detection in urine sediment by light microscopy NONE NRG Mucus detection in urine sediment by light microscopy SMALL NRG Complete urinalysis with reflex to culture NO NRG Amorphous sediment detection in urine sediment by ligh t microscopy FEW KOFFI URATES NRG Comprehensive metabolic panel - 06/30/19 12:53 Serum or plasma sodium measurement (moles/volume) 141 mmol/L 135-145 Serum or plasma potassium measurement (moles/volume) 4.2 mmol/L 3.6-5.0 Serum or plasma chloride measurement (moles/volume) 102 mmol/L 98-107 Carbon dioxide 24 mmol/L 21-32 Serum or plasma anion gap determination (moles/volume) 15 mmol/L 5-14 Serum or plasma urea nitrogen measurement (mass/volume ) 18 mg/dL 7-18 Serum or plasma creatinine measurement (mass/volume) 1.08 mg/dL 0.60-1.30 Serum or plasma urea nitrogen/creatinine mass ratio 17 NRG Serum or plasma creatinine measurement w ith calculation of estimated glomerular filtration rate > NRG Serum or plasma glucose measurement (mass/volume) 116 mg/dL 70-105 Serum or plasma calcium measurement (mass/volume) 9.2 mg/dL 8.5-10.1 Serum or plasma total bilirubin measurement (mass/volu me) 0.4 mg/dL 0.1-1.0 Serum or plasma alkaline phosphatase lulu surement (enzymatic activity/volume) 82 U/L 40-136 Serum or plasma aspartate aminotransfera se measurement (enzymatic activity/volume) 26 U/L 5-34 Serum or plasma alanine aminotransferase measurement (enzymatic activity/volume) 27 U/L 0-55 Serum or plasma protein measurement (mass/volume) 7.7 g/dL 6.4-8.2 Serum or plasma albumin measurement (mass/volume) 4.2 g/dL 3.2-4.5 CALCIUM CORRECTED 9.0 mg/dL 8.5-10.1 TROPONIN I FS - 06/30/19 12:53 TROPONIN I FS < 0.30 <0.30 Blood lactic acid measurement (moles/vol ume) - 06/30/19 14:37 Blood lactic acid measurement (moles/volume) 0.95 mmol/L 0.50-2.00 Blood type T Indirect antibody screen [facility] 06/30/19 19:31 WRISTBAND NUMBER [id number] NRG ABO+Rh group OP NRG Blood group antibody screen NEGATIVE NR G Whole blood hemoglobin and hematocrit [facility] 07/01/19 00:00 Venous blood hemoglobin measurement (mass/volume) 11.8 g/dL 13.3-17.7 Blood hematocrit (volume fraction) 36 % 40-54 Whole blood hemoglobin and hematocrit [facility] 07/01/19 00:00 Venous blood hemoglobin measurement (mass/volume) 10.2 g/dL 13.3-17.7 Blood hematocrit (volume fraction) 31 % 40-54 Complete blood count (CBC) with automate d white blood cell (WBC) differential - 07/01/19 06:10 Blood leukocytes automated count (number/volume) 8.2 10*3/uL 4.3-11.0 Blood erythrocytes automated count (number/volume) 3.77 10*6/uL 4.35-5.85 Venous blood hemoglobin measurement (mass/volume) 11.5 g/dL 13.3-17.7 Blood hematocrit (volume fraction) 35 % 40-54 Automated erythrocyte mean corpuscular volume 93 [ foz_us] 80-99 Automated erythrocyte mean corpuscular h emoglobin (mass per erythrocyte) 31 pg 25-34 Automated erythrocyte mean corpuscular h emoglobin concentration measurement (mass/volume) 33 g/dL 32-36 Automated erythrocyte distribution width ratio 15. 0 % 10.0- 14.5 Automated blood platelet count (count/volume) 190 10*3/uL 130-400 Automated blood platelet mean volume measurement 10.1 [foz_us] 7.4-10.4 Automated blood neutrophils/100 leukocytes 74 % 42-75 Automated blood lymphocytes/100 leukocytes 14 % 12-44 Blood monocytes/100 leukocytes 8 % 0-12 Automated blood eosinophils/100 leukocytes 3 % 0-10 Automated blood basophils/100 leukocytes 0 % 0-10 Blood neutrophils automated count (number/volume) 6.1 10*3 1.8-7.8 Blood lymphocytes automated count (number/volume) 1.2 10*3 1.0-4.0 Blood monocytes automated count (number/volume) 0. 7 10*3 0.0-1.0 Automated eosinophil count 0.2 10*3/uL 0 .0-0.3 Automated blood basophil count (count/volume) 0.0 10*3/uL 0.0-0.1 Whole blood basic metabolic panel - 06/14 04/01 06:10 Serum or plasma sodium measurement (moles/volume) 140 mmol/L 135-145 Serum or plasma potassium measurement (moles/volume) 4.0 mmol/L 3.6-5.0 Serum or plasma chloride measurement (moles/volume) 110 mmol/L 98-107 Carbon dioxide 21 mmol/L 21-32 Serum or plasma anion gap determination (moles/volume) 9 mmol/L 5-14 Serum or plasma urea nitrogen measurement (mass/volume ) 19 mg/dL 7-18 Serum or plasma creatinine measurement (mass/volume) 0.94 mg/dL 0.60-1.30 Serum or plasma urea nitrogen/creatinine mass ratio 20 NRG Serum or plasma creatinine measurement w ith calculation of estimated glomerular filtration rate > NRG Serum or plasma glucose measurement (mass/volume) 94 mg/dL 70-105 Serum or plasma calcium measurement (mass/volume) 8.3 mg/dL 8.5-10.1 Serum or plasma phosphate measurement (m ass/volume) - 07/01/19 06:10 Serum or plasma phosphate measurement (mass/volume) 3.1 mg/dL 2.3-4.7 Magnesium - 07/01/19 06:10 Magnesium 2.3 mg/dL 1.6-2.4 Whole blood hemoglobin and hematocrit [facility] - 07/01/19 11:30 Venous blood hemoglobin measurement (mass/volume) 12.0 g/dL 13.3-17.7 Blood hematocrit (volume fraction) 36 % 40-54 Whole blood hemoglobin and hematocrit [facility] - 07/01/19 18:09 Venous blood hemoglobin measurement (mass/volume) 11.7 g/dL 13.3-17.7 Blood hematocrit (volume fraction) 35 % 40-54 Complete blood count (CBC) with automate d white blood cell (WBC) differential - 07/02/19 06:19 Blood leukocytes automated count (number/volume) 7.4 10*3/uL 4.3-11.0 Blood erythrocytes automated count (number/volume) 3.52 10*6/uL 4.35-5.85 Venous blood hemoglobin measurement (mass/volume) 10.8 g/dL 13.3-17.7 Blood hematocrit (volume fraction) 33 % 40-54 Automated erythrocyte mean corpuscular volume 93 [ foz_us] 80-99 Automated erythrocyte mean corpuscular h emoglobin (mass per erythrocyte) 31 pg 25-34 Automated erythrocyte mean corpuscular h emoglobin concentration measurement (mass/volume) 33 g/dL 32-36 Automated erythrocyte distribution width ratio 14. 5 % 10.0- 14.5 Automated blood platelet count (count/volume) 189 10*3/uL 130-400 Automated blood platelet mean volume measurement 10.3 [foz_us] 7.4-10.4 Automated blood neutrophils/100 leukocytes 74 % 42-75 Automated blood lymphocytes/100 leukocytes 17 % 12-44 Blood monocytes/100 leukocytes 7 % 0-12 Automated blood eosinophils/100 leukocytes 2 % 0-10 Automated blood basophils/100 leukocytes 0 % 0-10 Blood neutrophils automated count (number/volume) 5.4 10*3 1.8-7.8 Blood lymphocytes automated count (number/volume) 1.2 10*3 1.0-4.0 Blood monocytes automated count (number/volume) 0. 5 10*3 0.0-1.0 Automated eosinophil count 0.2 10*3/uL 0 .0-0.3 Automated blood basophil count (count/volume) 0.0 10*3/uL 0.0-0.1 Whole blood basic metabolic panel - 06/14 05/02 06:19 Serum or plasma sodium measurement (moles/volume) 139 mmol/L 135-145 Serum or plasma potassium measurement (moles/volume) 4.0 mmol/L 3.6-5.0 Serum or plasma chloride measurement (moles/volume) 110 mmol/L 98-107 Carbon dioxide 18 mmol/L 21-32 Serum or plasma anion gap determination (moles/volume) 11 mmol/L 5-14 Serum or plasma urea nitrogen measurement (mass/volume ) 11 mg/dL 7-18 Serum or plasma creatinine measurement (mass/volume) 0.78 mg/dL 0.60-1.30 Serum or plasma urea nitrogen/creatinine mass ratio 14 NRG Serum or plasma creatinine measurement w ith calculation of estimated glomerular filtration rate > NRG Serum or plasma glucose measurement (mass/volume) 75 mg/dL 70-105 Serum or plasma calcium measurement (mass/volume) 8.0 mg/dL 8.5-10.1 Serum or plasma phosphate measurement (m ass/volume) - 07/02/19 06:19 Serum or plasma phosphate measurement (mass/volume) 2.2 mg/dL 2.3-4.7 Magnesium - 07/02/19 06:19 Magnesium 2.0 mg/dL 1.6-2.4 Complete blood count (CBC) with automate d white blood cell (WBC) differential - 07/03/19 04:20 Blood leukocytes automated count (number/volume) 7.9 10*3/uL 4.3-11.0 Blood erythrocytes automated count (number/volume) 3.25 10*6/uL 4.35-5.85 Venous blood hemoglobin measurement (mass/volume) 10.0 g/dL 13.3-17.7 Blood hematocrit (volume fraction) 30 % 40-54 Automated erythrocyte mean corpuscular volume 93 [ foz_us] 80-99 Automated erythrocyte mean corpuscular h emoglobin (mass per erythrocyte) 31 pg 25-34 Automated erythrocyte mean corpuscular h emoglobin concentration measurement (mass/volume) 33 g/dL 32-36 Automated erythrocyte distribution width ratio 14. 4 % 10.0- 14.5 Automated blood platelet count (count/volume) 169 10*3/uL 130-400 Automated blood platelet mean volume measurement 10.7 [foz_us] 7.4-10.4 Automated blood neutrophils/100 leukocytes 76 % 42-75 Automated blood lymphocytes/100 leukocytes 14 % 12-44 Blood monocytes/100 leukocytes 8 % 0-12 Automated blood eosinophils/100 leukocytes 2 % 0-10 Automated blood basophils/100 leukocytes 0 % 0-10 Blood neutrophils automated count (number/volume) 6.0 10*3 1.8-7.8 Blood lymphocytes automated count (number/volume) 1.1 10*3 1.0-4.0 Blood monocytes automated count (number/volume) 0. 6 10*3 0.0-1.0 Automated eosinophil count 0.2 10*3/uL 0 .0-0.3 Automated blood basophil count (count/volume) 0.0 10*3/uL 0.0-0.1 Whole blood basic metabolic panel - 06/15 04:20 Serum or plasma sodium measurement (moles/volume) 141 mmol/L 135-145 Serum or plasma potassium measurement (moles/volume) 3.8 mmol/L 3.6-5.0 Serum or plasma chloride measurement (moles/volume) 113 mmol/L 98-107 Carbon dioxide 19 mmol/L 21-32 Serum or plasma anion gap determination (moles/volume) 9 mmol/L 5-14 Serum or plasma urea nitrogen measurement (mass/volume ) 9 mg/dL 7-18 Serum or plasma creatinine measurement (mass/volume) 0.75 mg/dL 0.60-1.30 Serum or plasma urea nitrogen/creatinine mass ratio 12 NRG Serum or plasma creatinine measurement w ith calculation of estimated glomerular filtration rate > NRG Serum or plasma glucose measurement (mass/volume) 82 mg/dL 70-105 Serum or plasma calcium measurement (mass/volume) 8.0 mg/dL 8.5-10.1 Complete blood count (CBC) with automate d white blood cell (WBC) differential - 07/04/19 05:31 Blood leukocytes automated count (number/volume) 8.0 10*3/uL 4.3-11.0 Blood erythrocytes automated count (number/volume) 3.41 10*6/uL 4.35-5.85 Venous blood hemoglobin measurement (mass/volume) 10.6 g/dL 13.3-17.7 Blood hematocrit (volume fraction) 32 % 40-54 Automated erythrocyte mean corpuscular volume 92 [ foz_us] 80-99 Automated erythrocyte mean corpuscular h emoglobin (mass per erythrocyte) 31 pg 25-34 Automated erythrocyte mean corpuscular h emoglobin concentration measurement (mass/volume) 34 g/dL 32-36 Automated erythrocyte distribution width ratio 14. 2 % 10.0- 14.5 Automated blood platelet count (count/volume) 179 10*3/uL 130-400 Automated blood platelet mean volume measurement 10.4 [foz_us] 7.4-10.4 Automated blood neutrophils/100 leukocytes 74 % 42-75 Automated blood lymphocytes/100 leukocytes 16 % 12-44 Blood monocytes/100 leukocytes 8 % 0-12 Automated blood eosinophils/100 leukocytes 2 % 0-10 Automated blood basophils/100 leukocytes 0 % 0-10 Blood neutrophils automated count (number/volume) 5.9 10*3 1.8-7.8 Blood lymphocytes automated count (number/volume) 1.3 10*3 1.0-4.0 Blood monocytes automated count (number/volume) 0. 6 10*3 0.0-1.0 Automated eosinophil count 0.2 10*3/uL 0 .0-0.3 Automated blood basophil count (count/volume) 0.0 10*3/uL 0.0-0.1 Whole blood basic metabolic panel - 06/15 09/01 05:31 Serum or plasma sodium measurement (moles/volume) 140 mmol/L 135-145 Serum or plasma potassium measurement (moles/volume) 3.5 mmol/L 3.6-5.0 Serum or plasma chloride measurement (moles/volume) 111 mmol/L 98-107 Carbon dioxide 19 mmol/L 21-32 Serum or plasma anion gap determination (moles/volume) 10 mmol/L 5-14 Serum or plasma urea nitrogen measurement (mass/volume ) 5 mg/dL 7-18 Serum or plasma creatinine measurement (mass/volume) 0.72 mg/dL 0.60-1.30 Serum or plasma urea nitrogen/creatinine mass ratio 7 NRG Serum or plasma creatinine measurement w ith calculation of estimated glomerular filtration rate > NRG Serum or plasma glucose measurement (mass/volume) 84 mg/dL 70-105 Serum or plasma calcium measurement (mass/volume) 8.4 mg/dL 8.5-10.1 Complete blood count (CBC) with automate d white blood cell (WBC) differential - 09/22/19 02:31 Blood leukocytes automated count (number/volume) 14.5 10*3/uL 4.3-11.0 Blood erythrocytes automated count (number/volume) 4.65 10*6/uL 4.35-5.85 Venous blood hemoglobin measurement (mass/volume) 13.8 g/dL 13.3-17.7 Blood hematocrit (volume fraction) 43 % 40-54 Automated erythrocyte mean corpuscular volume 93 [ foz_us] 80-99 Automated erythrocyte mean corpuscular h emoglobin (mass per erythrocyte) 30 pg 25-34 Automated erythrocyte mean corpuscular h emoglobin concentration measurement (mass/volume) 32 g/dL 32-36 Automated erythrocyte distribution width ratio 14. 8 % 10.0- 14.5 Automated blood platelet count (count/volume) 190 10*3/uL 130-400 Automated blood platelet mean volume measurement 11.0 [foz_us] 7.4-10.4 Automated blood neutrophils/100 leukocytes 82 % 42-75 Automated blood lymphocytes/100 leukocytes 10 % 12-44 Blood monocytes/100 leukocytes 4 % 0-12 Automated blood eosinophils/100 leukocytes 3 % 0-10 Automated blood basophils/100 leukocytes 0 % 0-10 Blood neutrophils automated count (number/volume) 12.0 10*3 1.8-7.8 Blood lymphocytes automated count (number/volume) 1.4 10*3 1.0-4.0 Blood monocytes automated count (number/volume) 0. 6 10*3 0.0-1.0 Automated eosinophil count 0.4 10*3/uL 0 .0-0.3 Automated blood basophil count (count/volume) 0.1 10*3/uL 0.0-0.1 PT panel in platelet poor plasma by coag ulation assay - 09/22/19 02:31 Prothrombin time (PT) in platelet poor plasma by coagu lation assay 13.8 s 12.2-14.7 INR in platelet poor plasma or blood by coagulation as say 1.0 0.8-1.4 Activated partial thromboplastin time (a PTT) in platelet poor plasma bycoagulation assay - 09/22/19 02:31 Activated partial thromboplastin time (a PTT) in platelet poor plasma bycoagulation assay 27 s 24-35 Comprehensive metabolic panel - 09/22/19 02:31 Serum or plasma sodium measurement (moles/volume) 140 mmol/L 135-145 Serum or plasma potassium measurement (moles/volume) 3.8 mmol/L 3.6-5.0 Serum or plasma chloride measurement (moles/volume) 101 mmol/L 98-107 Carbon dioxide 22 mmol/L 21-32 Serum or plasma anion gap determination (moles/volume) 17 mmol/L 5-14 Serum or plasma urea nitrogen measurement (mass/volume ) 21 mg/dL 7-18 Serum or plasma creatinine measurement (mass/volume) 1.10 mg/dL 0.60-1.30 Serum or plasma urea nitrogen/creatinine mass ratio 19 NRG Serum or plasma creatinine measurement w ith calculation of estimated glomerular filtration rate > NRG Serum or plasma glucose measurement (mass/volume) 137 mg/dL 70-105 Serum or plasma calcium measurement (mass/volume) 9.0 mg/dL 8.5-10.1 Serum or plasma total bilirubin measurement (mass/volu me) 0.4 mg/dL 0.1-1.0 Serum or plasma alkaline phosphatase lulu surement (enzymatic activity/volume) 88 U/L 40-136 Serum or plasma aspartate aminotransfera se measurement (enzymatic activity/volume) 23 U/L 5-34 Serum or plasma alanine aminotransferase measurement (enzymatic activity/volume) 24 U/L 0-55 Serum or plasma protein measurement (mass/volume) 7.7 g/dL 6.4-8.2 Serum or plasma albumin measurement (mass/volume) 4.1 g/dL 3.2-4.5 CALCIUM CORRECTED 8.9 mg/dL 8.5-10.1 Magnesium - 09/22/19 02:31 Magnesium 1.8 mg/dL 1.6-2.4 TROPONIN I FS - 09/22/19 02:31 TROPONIN I FS < 0.30 <0.30 PROBNP FS - 09/22/19 02:31 PROBNP FS 1347.0 pg/mL <75.0 Manual absolute plasma cell count - 05/03 02:31 Blood monocytes/100 leukocytes 7 % NRG Manual blood segmented neutrophils/100 leukocytes 79 % NRG Manual blood lymphocytes/100 leukocytes 13 % NRG Manual eosinophils/100 leukocytes in nose 1 % NRG Blood microcytes detection by light microscopy I [facility] NRG Blood lactic acid measurement (moles/vol ume) - 09/22/19 02:31 Blood lactic acid measurement (moles/volume) 2.38 mmol/L 0.50-2.00 Bacterial blood culture - 09/22/19 02:31 Bacterial blood culture NG NRG Arterial blood gas measurement - 0 02:36 Blood pCO2 31 mm[Hg] 35-45 Blood pO2 41 mm[Hg] 79-93 Arterial blood bicarbonate measurement (moles/volume) 23 mmol/L 23-27 Arterial blood base excess by calculation 0.3 mmol /L -2.5-2.5 Arterial blood oxygen saturation measurement 81 % 94-100 * Inhaled oxygen flow rate 100 NRG Arterial blood pH measurement with patient temperature correction 7.48 7.37-7.43 Arterial blood carbon dioxide, total measurement (mole s/volume) 24.1 mmol/L 21.0-31.0 Body site RIGHT RADIAL NRG Assessment of wrist artery patency prior to arterial p uncture POSITIVE NRG Setting of ventilation mode NO NR G Measurement of body temperature 38.4 NRG Sputum Gram stain - 09/22/19 02:43 Sputum Gram stain MIXED BACTERIAL MARÍA ELENA NRG Bacterial sputum culture - 09/22/19 02:4 3 QUANTITY OF GROWTH . NRG Bacterial sputum culture USUAL RESP NRG Bacterial blood culture - 09/22/19 03:00 Bacterial blood culture NG NRG Influenza virus A and B antigen detectio n - 09/22/19 03:33 FLU RESULT NEGATIVE FOR INFLUENZA A AND B ANTIGENS BY IA NRG Complete urinalysis with reflex to cultu re - 09/22/19 05:10 Urine color determination YELLOW NRG Urine clarity determination CLEAR NR G Urine pH measurement by test strip 6.5 5-9 Specific gravity of urine by test strip 1.015 1.016-1.022 Urine protein assay by test strip, semi-quantitative NEGATIVE NEGATIVE Urine glucose detection by automated test strip NE GATIVE NEGATIVE Erythrocytes detection in urine sediment by light micr oscopy TRACE-L NEGATIVE Urine ketones detection by automated test strip TR PRASANTH NEGATIVE Urine nitrite detection by test strip NEGATIVE NEGATIVE Urine total bilirubin detection by test strip NEGA TIVE NEGATIVE Urine urobilinogen measurement by automated test strip (mass/volume) 1.0 mg/dL < = 1.0 Urine leukocyte esterase detection by dipstick NEG ATIVE NEGATIVE Automated urine sediment erythrocyte cou nt by microscopy (number/high power field) [HPF] NRG Automated urine sediment leukocyte count by microscopy (number/high power field) NONE NRG Bacteria detection in urine sediment by light microsco py NEGATIVE NRG Squamous epithelial cells detection in u rine sediment by light microscopy 2-5 NRG Crystals detection in urine sediment by light microsco py NONE NRG Casts detection in urine sediment by light microscopy NONE NRG Mucus detection in urine sediment by light microscopy SMALL NRG Complete urinalysis with reflex to culture NO NRG Methicillin resistant Staphylococcus aur eus (MRSA) screening culture - 09/22/19 05:11 Methicillin resistant Staphylococcus aureus (MRSA) scr eening culture NEG NRG Arterial blood gas measurement - 0 05:13 Blood pCO2 34 mm[Hg] 35-45 Blood pO2 41 mm[Hg] 79-93 Arterial blood bicarbonate measurement (moles/volume) 22 mmol/L 23-27 Arterial blood base excess by calculation -1.6 mmo l/L -2.5-2.5 Arterial blood oxygen saturation measurement 70 % 94-100 * Inhaled oxygen flow rate 6L NRG Arterial blood pH measurement with patient temperature correction 7.43 7.37-7.43 Arterial blood carbon dioxide, total measurement (mole s/volume) 23.1 mmol/L 21.0-31.0 Body site LEFT RADIAL NRG Assessment of wrist artery patency prior to arterial p uncture YES-POS NRG Setting of ventilation mode NO NR G Measurement of body temperature 37.3 NRG Complete blood count (CBC) with automate d white blood cell (WBC) differential - 09/22/19 05:46 Blood leukocytes automated count (number/volume) 12.8 10*3/uL 4.3-11.0 Blood erythrocytes automated count (number/volume) 4.23 10*6/uL 4.35-5.85 Venous blood hemoglobin measurement (mass/volume) 12.5 g/dL 13.3-17.7 Blood hematocrit (volume fraction) 39 % 40-54 Automated erythrocyte mean corpuscular volume 92 [ foz_us] 80-99 Automated erythrocyte mean corpuscular h emoglobin (mass per erythrocyte) 30 pg 25-34 Automated erythrocyte mean corpuscular h emoglobin concentration measurement (mass/volume) 32 g/dL 32-36 Automated erythrocyte distribution width ratio 14. 9 % 10.0- 14.5 Automated blood platelet count (count/volume) 166 10*3/uL 130-400 Automated blood platelet mean volume measurement 10.8 [foz_us] 7.4-10.4 Automated blood neutrophils/100 leukocytes 94 % 42-75 Automated blood lymphocytes/100 leukocytes 2 % 12-44 Blood monocytes/100 leukocytes 4 % 0-12 Automated blood eosinophils/100 leukocytes 0 % 0-10 Automated blood basophils/100 leukocytes 0 % 0-10 Blood neutrophils automated count (number/volume) 12.0 10*3 1.8-7.8 Blood lymphocytes automated count (number/volume) 0.2 10*3 1.0-4.0 Blood monocytes automated count (number/volume) 0. 5 10*3 0.0-1.0 Automated eosinophil count 0.0 10*3/uL 0 .0-0.3 Automated blood basophil count (count/volume) 0.0 10*3/uL 0.0-0.1 Blood lactic acid measurement (moles/vol ume) - 09/22/19 05:46 Blood lactic acid measurement (moles/volume) 0.98 mmol/L 0.50-2.00 Whole blood basic metabolic panel - 05/03 05:46 Serum or plasma sodium measurement (moles/volume) 140 mmol/L 135-145 Serum or plasma potassium measurement (moles/volume) 3.7 mmol/L 3.6-5.0 Serum or plasma chloride measurement (moles/volume) 109 mmol/L 98-107 Carbon dioxide 19 mmol/L 21-32 Serum or plasma anion gap determination (moles/volume) 12 mmol/L 5-14 Serum or plasma urea nitrogen measurement (mass/volume ) 20 mg/dL 7-18 Serum or plasma creatinine measurement (mass/volume) 1.05 mg/dL 0.60-1.30 Serum or plasma urea nitrogen/creatinine mass ratio 19 NRG Serum or plasma creatinine measurement w ith calculation of estimated glomerular filtration rate > NRG Serum or plasma glucose measurement (mass/volume) 109 mg/dL 70-105 Serum or plasma calcium measurement (mass/volume) 8.4 mg/dL 8.5-10.1 Serum or plasma phosphate measurement (m ass/volume) - 09/22/19 05:46 Serum or plasma phosphate measurement (mass/volume) 2.2 mg/dL 2.3-4.7 Magnesium - 09/22/19 05:46 Magnesium 1.6 mg/dL 1.6-2.4 Serum or plasma lithium measurement (mol es/volume) - 09/22/19 05:46 BNP PT 784.5 pg/mL <100.0 PROCALCITONIN (PCT) - 09/22/19 05:46 PROCALCITONIN (PCT) 0.12 ng/mL <0.10 Serum or plasma troponin i.cardiac measu rement (mass/volume) - 09/22/19 09:24 Serum or plasma troponin i.cardiac measurement (mass/v olume) 0.769 ng/mL <0.028 Serum or plasma troponin i.cardiac measu rement (mass/volume) - 09/22/19 15:05 Serum or plasma troponin i.cardiac measurement (mass/v olume) 0.830 ng/mL <0.028 Serum or plasma troponin i.cardiac measu rement (mass/volume) - 09/22/19 20:52 Serum or plasma troponin i.cardiac measurement (mass/v olume) 0.779 ng/mL <0.028 Complete blood count (CBC) with automate d white blood cell (WBC) differential - 09/23/19 03:10 Blood leukocytes automated count (number/volume) 18.8 10*3/uL 4.3-11.0 Blood erythrocytes automated count (number/volume) 3.96 10*6/uL 4.35-5.85 Venous blood hemoglobin measurement (mass/volume) 11.8 g/dL 13.3-17.7 Blood hematocrit (volume fraction) 36 % 40-54 Automated erythrocyte mean corpuscular volume 92 [ foz_us] 80-99 Automated erythrocyte mean corpuscular h emoglobin (mass per erythrocyte) 30 pg 25-34 Automated erythrocyte mean corpuscular h emoglobin concentration measurement (mass/volume) 33 g/dL 32-36 Automated erythrocyte distribution width ratio 15. 2 % 10.0- 14.5 Automated blood platelet count (count/volume) 162 10*3/uL 130-400 Automated blood platelet mean volume measurement 11.1 [foz_us] 7.4-10.4 Automated blood neutrophils/100 leukocytes 93 % 42-75 Automated blood lymphocytes/100 leukocytes 2 % 12-44 Blood monocytes/100 leukocytes 4 % 0-12 Automated blood eosinophils/100 leukocytes 0 % 0-10 Automated blood basophils/100 leukocytes 0 % 0-10 Blood neutrophils automated count (number/volume) 17.5 10*3 1.8-7.8 Blood lymphocytes automated count (number/volume) 0.4 10*3 1.0-4.0 Blood monocytes automated count (number/volume) 0. 8 10*3 0.0-1.0 Automated eosinophil count 0.0 10*3/uL 0 .0-0.3 Automated blood basophil count (count/volume) 0.0 10*3/uL 0.0-0.1 Comprehensive metabolic panel - 09/23/19 03:10 Serum or plasma sodium measurement (moles/volume) 137 mmol/L 135-145 Serum or plasma potassium measurement (moles/volume) 3.3 mmol/L 3.6-5.0 Serum or plasma chloride measurement (moles/volume) 106 mmol/L 98-107 Carbon dioxide 21 mmol/L 21-32 Serum or plasma anion gap determination (moles/volume) 10 mmol/L 5-14 Serum or plasma urea nitrogen measurement (mass/volume ) 22 mg/dL 7-18 Serum or plasma creatinine measurement (mass/volume) 1.28 mg/dL 0.60-1.30 Serum or plasma urea nitrogen/creatinine mass ratio 17 NRG Serum or plasma creatinine measurement w ith calculation of estimated glomerular filtration rate 54 NRG Serum or plasma glucose measurement (mass/volume) 124 mg/dL 70-105 Serum or plasma calcium measurement (mass/volume) 8.2 mg/dL 8.5-10.1 Serum or plasma total bilirubin measurement (mass/volu me) 0.5 mg/dL 0.1-1.0 Serum or plasma alkaline phosphatase lulu surement (enzymatic activity/volume) 57 U/L 40-136 Serum or plasma aspartate aminotransfera se measurement (enzymatic activity/volume) 25 U/L 5-34 Serum or plasma alanine aminotransferase measurement (enzymatic activity/volume) 26 U/L 0-55 Serum or plasma protein measurement (mass/volume) 6.4 g/dL 6.4-8.2 Serum or plasma albumin measurement (mass/volume) 3.4 g/dL 3.2-4.5 CALCIUM CORRECTED 8.7 mg/dL 8.5-10.1 Serum or plasma phosphate measurement (m ass/volume) - 09/23/19 03:10 Serum or plasma phosphate measurement (mass/volume) 3.2 mg/dL 2.3-4.7 Magnesium - 09/23/19 03:10 Magnesium 2.1 mg/dL 1.6-2.4 PROCALCITONIN (PCT) - 09/23/19 03:10 PROCALCITONIN (PCT) 0.32 ng/mL <0.10 Serum or plasma troponin i.cardiac measu rement (mass/volume) - 09/23/19 03:10 Serum or plasma troponin i.cardiac measurement (mass/v olume) 0.676 ng/mL <0.028 Blood lactic acid measurement (moles/vol ume) - 09/23/19 09:11 Blood lactic acid measurement (moles/volume) 2.55 mmol/L 0.50-2.00 Serum or plasma lactate measurement (mol es/volume) - 09/23/19 11:10 Serum or plasma lactate measurement (moles/volume) 1.94 mmol/L 0.50-2.00 Vancomycin trough - 09/23/19 21:25 Vancomycin trough 18.6 ug/mL 10.0-20.0 Complete blood count (CBC) with automate d white blood cell (WBC) differential - 09/24/19 05:08 Blood leukocytes automated count (number/volume) 14.4 10*3/uL 4.3-11.0 Blood erythrocytes automated count (number/volume) 3.95 10*6/uL 4.35-5.85 Venous blood hemoglobin measurement (mass/volume) 11.8 g/dL 13.3-17.7 Blood hematocrit (volume fraction) 36 % 40-54 Automated erythrocyte mean corpuscular volume 91 [ foz_us] 80-99 Automated erythrocyte mean corpuscular h emoglobin (mass per erythrocyte) 30 pg 25-34 Automated erythrocyte mean corpuscular h emoglobin concentration measurement (mass/volume) 33 g/dL 32-36 Automated erythrocyte distribution width ratio 15. 1 % 10.0- 14.5 Automated blood platelet count (count/volume) 154 10*3/uL 130-400 Automated blood platelet mean volume measurement 10.7 [foz_us] 7.4-10.4 Automated blood neutrophils/100 leukocytes 88 % 42-75 Automated blood lymphocytes/100 leukocytes 6 % 12-44 Blood monocytes/100 leukocytes 6 % 0-12 Automated blood eosinophils/100 leukocytes 0 % 0-10 Automated blood basophils/100 leukocytes 0 % 0-10 Blood neutrophils automated count (number/volume) 12.7 10*3 1.8-7.8 Blood lymphocytes automated count (number/volume) 0.8 10*3 1.0-4.0 Blood monocytes automated count (number/volume) 0. 8 10*3 0.0-1.0 Automated eosinophil count 0.0 10*3/uL 0 .0-0.3 Automated blood basophil count (count/volume) 0.0 10*3/uL 0.0-0.1 Whole blood basic metabolic panel - 09/14 09/02 05:08 Serum or plasma sodium measurement (moles/volume) 136 mmol/L 135-145 Serum or plasma potassium measurement (moles/volume) 3.9 mmol/L 3.6-5.0 Serum or plasma chloride measurement (moles/volume) 103 mmol/L 98-107 Carbon dioxide 22 mmol/L 21-32 Serum or plasma anion gap determination (moles/volume) 11 mmol/L 5-14 Serum or plasma urea nitrogen measurement (mass/volume ) 21 mg/dL 7-18 Serum or plasma creatinine measurement (mass/volume) 1.18 mg/dL 0.60-1.30 Serum or plasma urea nitrogen/creatinine mass ratio 18 NRG Serum or plasma creatinine measurement w ith calculation of estimated glomerular filtration rate 60 NRG Serum or plasma glucose measurement (mass/volume) 81 mg/dL 70-105 Serum or plasma calcium measurement (mass/volume) 8.3 mg/dL 8.5-10.1 Serum or plasma phosphate measurement (m ass/volume) - 09/24/19 05:08 Serum or plasma phosphate measurement (mass/volume) 2.2 mg/dL 2.3-4.7 Magnesium - 09/24/19 05:08 Magnesium 2.0 mg/dL 1.6-2.4 Complete blood count (CBC) with automate d white blood cell (WBC) differential - 09/25/19 04:45 Blood leukocytes automated count (number/volume) 8.1 10*3/uL 4.3-11.0 Blood erythrocytes automated count (number/volume) 3.89 10*6/uL 4.35-5.85 Venous blood hemoglobin measurement (mass/volume) 11.3 g/dL 13.3-17.7 Blood hematocrit (volume fraction) 36 % 40-54 Automated erythrocyte mean corpuscular volume 92 [ foz_us] 80-99 Automated erythrocyte mean corpuscular h emoglobin (mass per erythrocyte) 29 pg 25-34 Automated erythrocyte mean corpuscular h emoglobin concentration measurement (mass/volume) 32 g/dL 32-36 Automated erythrocyte distribution width ratio 15. 1 % 10.0- 14.5 Automated blood platelet count (count/volume) 130 10*3/uL 130-400 Automated blood platelet mean volume measurement 11.0 [foz_us] 7.4-10.4 Automated blood neutrophils/100 leukocytes 88 % 42-75 Automated blood lymphocytes/100 leukocytes 5 % 12-44 Blood monocytes/100 leukocytes 6 % 0-12 Automated blood eosinophils/100 leukocytes 1 % 0-10 Automated blood basophils/100 leukocytes 0 % 0-10 Blood neutrophils automated count (number/volume) 7.1 10*3 1.8-7.8 Blood lymphocytes automated count (number/volume) 0.4 10*3 1.0-4.0 Blood monocytes automated count (number/volume) 0. 5 10*3 0.0-1.0 Automated eosinophil count 0.1 10*3/uL 0 .0-0.3 Automated blood basophil count (count/volume) 0.0 10*3/uL 0.0-0.1 Whole blood basic metabolic panel - 09/14 10/03 04:45 Serum or plasma sodium measurement (moles/volume) 136 mmol/L 135-145 Serum or plasma potassium measurement (moles/volume) 4.0 mmol/L 3.6-5.0 Serum or plasma chloride measurement (moles/volume) 103 mmol/L 98-107 Carbon dioxide 23 mmol/L 21-32 Serum or plasma anion gap determination (moles/volume) 10 mmol/L 5-14 Serum or plasma urea nitrogen measurement (mass/volume ) 20 mg/dL 7-18 Serum or plasma creatinine measurement (mass/volume) 1.25 mg/dL 0.60-1.30 Serum or plasma urea nitrogen/creatinine mass ratio 16 NRG Serum or plasma creatinine measurement w ith calculation of estimated glomerular filtration rate 56 NRG Serum or plasma glucose measurement (mass/volume) 87 mg/dL 70-105 Serum or plasma calcium measurement (mass/volume) 8.7 mg/dL 8.5-10.1 Serum or plasma phosphate measurement (m ass/volume) - 09/25/19 04:45 Serum or plasma phosphate measurement (mass/volume) 2.3 mg/dL 2.3-4.7 Magnesium - 09/25/19 04:45 Magnesium 2.2 mg/dL 1.6-2.4 Serum or plasma lithium measurement (mol es/volume) - 09/25/19 04:45 BNP PT 272.2 pg/mL <100.0 Complete blood count (CBC) with automate d white blood cell (WBC) differential - 09/26/19 05:27 Blood leukocytes automated count (number/volume) 6.7 10*3/uL 4.3-11.0 Blood erythrocytes automated count (number/volume) 4.43 10*6/uL 4.35-5.85 Venous blood hemoglobin measurement (mass/volume) 13.1 g/dL 13.3-17.7 Blood hematocrit (volume fraction) 40 % 40-54 Automated erythrocyte mean corpuscular volume 91 [ foz_us] 80-99 Automated erythrocyte mean corpuscular h emoglobin (mass per erythrocyte) 30 pg 25-34 Automated erythrocyte mean corpuscular h emoglobin concentration measurement (mass/volume) 33 g/dL 32-36 Automated erythrocyte distribution width ratio 14. 9 % 10.0- 14.5 Automated blood platelet count (count/volume) 156 10*3/uL 130-400 Automated blood platelet mean volume measurement 11.2 [foz_us] 7.4-10.4 Automated blood neutrophils/100 leukocytes 81 % 42-75 Automated blood lymphocytes/100 leukocytes 6 % 12-44 Blood monocytes/100 leukocytes 8 % 0-12 Automated blood eosinophils/100 leukocytes 5 % 0-10 Automated blood basophils/100 leukocytes 0 % 0-10 Blood neutrophils automated count (number/volume) 5.4 10*3 1.8-7.8 Blood lymphocytes automated count (number/volume) 0.4 10*3 1.0-4.0 Blood monocytes automated count (number/volume) 0. 6 10*3 0.0-1.0 Automated eosinophil count 0.3 10*3/uL 0 .0-0.3 Automated blood basophil count (count/volume) 0.0 10*3/uL 0.0-0.1 Whole blood basic metabolic panel - 09/14 10/31 05:27 Serum or plasma sodium measurement (moles/volume) 134 mmol/L 135-145 Serum or plasma potassium measurement (moles/volume) 3.8 mmol/L 3.6-5.0 Serum or plasma chloride measurement (moles/volume) 98 mmol/L 98-107 Carbon dioxide 23 mmol/L 21-32 Serum or plasma anion gap determination (moles/volume) 13 mmol/L 5-14 Serum or plasma urea nitrogen measurement (mass/volume ) 24 mg/dL 7-18 Serum or plasma creatinine measurement (mass/volume) 1.40 mg/dL 0.60-1.30 Serum or plasma urea nitrogen/creatinine mass ratio 17 NRG Serum or plasma creatinine measurement w ith calculation of estimated glomerular filtration rate 49 NRG Serum or plasma glucose measurement (mass/volume) 91 mg/dL 70-105 Serum or plasma calcium measurement (mass/volume) 9.1 mg/dL 8.5-10.1 Serum or plasma phosphate measurement (m ass/volume) - 09/26/19 05:27 Serum or plasma phosphate measurement (mass/volume) 3.1 mg/dL 2.3-4.7 Magnesium - 09/26/19 05:27 Magnesium 2.3 mg/dL 1.6-2.4 OCCULT BLOOD STOOL - 09/26/19 06:54 Stool gastrointestinal hemoglobin detection NEGATI VE NEGATIVE Methicillin resistant Staphylococcus aur eus (MRSA) screening culture - 09/26/19 10:30 Methicillin resistant Staphylococcus aureus (MRSA) scr eening culture NEG NRG Encounters ACCT No. Visit Date/Time Discharge Status Pt. Type Provider Facility Loc./Unit Complaint [id number] 06/30/2019 12:20:00 06/30/2019 23:59: 59 CLS Outpatient CELSA LAC[facility] [id number] 09/22/2019 03:53:00 00:12:00 DIS Inpatient JAGDISH HOGAN, JACKIE Perdomo [facility] CSD TROUBLE BREATHING [id number] 08/21/2019 11:30:00 020 23:59:59 CLS Preadmit KORI SPARROW, QUINTIN Tineo [facility] CARD ATRIAL FIB,HYPERLIPIDEMIA,HTN [id number] 06/30/2019 15:23:00 019 11:20:00 DIS Inpatient JAGDISH HOGAN, JACKIE Perdomo [facility] 4TH RECTAL BLEEDING
--- OUTSIDE RECORDS SUMMARY | 2019-09-30 09:08 | XMS REPORT | Continuity of Care Document ---
Author Organization Unknown Address Unknown Phone Unavailable Allergies Active Description Code Type Severity Reaction Onset Reported/Identified Relationship to Patient Clinical Status Yes No Known Drug Allergies [id number] Drug Allergy Unknown N/A 06/30/2019 Medications There [...] Code Description Performed By Per maribel On [id number] IN SPECTION OF LOWER INTESTINAL TRACT, EN [...] 0.50-2.00 Blood type T Indirect antibody screen [facility] 06/30/19 19:31 WRISTBAND NUMBER [id number] NRG ABO+Rh group OP NRG Blood group antibody screen NEGATIVE NR G Whole blood hemoglobin and hematocrit [facility] 07/01/19 00:00 Venous blood hemoglobin measurement (mass/volume) 11.8 g/dL 13.3-17.7 Blood hematocrit (volume fraction) 36 % 40-54 Whole blood hemoglobin and hematocrit [facility] 07/01/19 00:00 Venous blood hemoglobin measurement (mass/volume) [...] mg/dL 1.6-2.4 Whole blood hemoglobin and hematocrit [facility] - 07/01/19 11:30 Venous blood hemoglobin measurement (mass/volume) 12.0 g/dL 13.3-17.7 Blood hematocrit (volume fraction) 36 % 40-54 Whole blood hemoglobin and hematocrit [facility] - 07/01/19 18:09 Venous blood hemoglobin measurement [...] Blood microcytes detection by light microscopy I [facility] NRG Blood lactic acid measurement (moles/vol ume) [...] Status Pt. Type Provider Facility Loc./Unit Complaint [id number] 06/30/2019 12:20:00 06/30/2019 23:59: 59 [facility] [id number] 09/22/2019 03:53:00 00:12:00 DIS Inpatient JAGDISH HOGAN, JACKIE Perdomo [facility] CSD TROUBLE BREATHING [id number] 08/21/2019 11:30:00 020 23:59:59 CLS Preadmit KORI SPARROW, QUINTIN Tineo [facility] CARD ATRIAL FIB,HYPERLIPIDEMIA,HTN [id number] 06/30/2019 15:23:00 019 11:20:00 DIS Inpatient JAGDISH HOGAN, JACKIE Perdomo [facility] 4TH RECTAL BLEEDING
== END 2019-09-27 00:12 | disposition short-term general hospital (02) | DRG 871 ==
LOC: EDUNIT# 02:22 → ER FS 02:24 → ICU 03:53 → 4TH 09-23 08:05 → CSD 09-26 15:46
PROVIDERS: ADMIT Internal Medicine; ATTEND Internal Medicine
PROC: 4A023N7 Measurement of Cardiac Sampling and Pressure, Left Heart, Percutaneous Approach (ICD-10-PCS; principal; 2019-09-26)
PROC: B2111ZZ Fluoroscopy of Multiple Coronary Arteries using Low Osmolar Contrast (ICD-10-PCS; 2019-09-26)
PROC: B3101ZZ Fluoroscopy of Thoracic Aorta using Low Osmolar Contrast (ICD-10-PCS; 2019-09-26)
DX: A41.9 Sepsis, unspecified organism (principal); R65.20 Severe sepsis without septic shock; J96.01 Acute respiratory failure with hypoxia; I21.4 Non-ST elevation (NSTEMI) myocardial infarction; I11.0 Hypertensive heart disease with heart failure; I50.31 Acute diastolic (congestive) heart failure; J18.9 Pneumonia, unspecified organism; E87.2 Acidosis; R04.2 Hemoptysis; J44.0 Chronic obstructive pulmonary disease with (acute) lower respiratory infection; I48.0 Paroxysmal atrial fibrillation; F17.290 Nicotine dependence, other tobacco product, uncomplicated; I35.0 Nonrheumatic aortic (valve) stenosis; K57.90 Diverticulosis of intestine, part unspecified, without perforation or abscess without bleeding; I65.23 Occlusion and stenosis of bilateral carotid arteries; E83.39 Other disorders of phosphorus metabolism; Z91.120 Patient's intentional underdosing of medication regimen due to financial hardship
CPT/HCPCS: 36415; 36600; 71045; 71275; 80048; 80053; 80202; 81000; 82274; 82805; 83605; 83735; 83880; 84100; 84145; 84484; 85007; 85025; 85027; 85610; 85730; 87040; 87070; 87081; 87205; 87804; 93005; 93041; 93306; 93970; 94640; 94760; 96361; 96365; 96375

== ENCOUNTER 2020-04-25 12:26 | Emergency (ER) | payer MEDICARE ==
[~2020-04-25] VITALS: Ht 182.8 cm; Wt 92.8 kg
[~2020-04-25 12:26] MED LIST changes: +FLUT9.9S NS; +GLUC-219 PO; +GUAI600T43 PO; +IBUP-2473 PO; +TMSL.4C PO
[2020-04-25 12:30] VITALS: BP 131/54
--- NOTE | 2020-04-25 12:47 | ED Neck-Back Pain/Injury ---
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 Patient states that he works with his head bent down looking at items and this morning he was feeling a lot of strain in his neck. On arrival to the ER, states the neck pain is gone and he is feeling fine. Denies any chest pain, shortness of air, fever or chills, recent illness, numbness weakness or paresthesias. Denies any headache, change of vision or dizziness. Allergies and Home Medications Allergies Coded Allergies: No Known Drug Allergies (Unverified , 06/30/19) Home Medications Amiodarone HCl 200 Mg Tablet, 200 MG PO 1800, (Reported) Fluticasone Propionate 9.9 Ml [place].susp, 1 SPRAY NS DAILY PRN for CONGESTION, (Reported) 1 SPRAY EACH NARE DAILY Glucosamine/D3/Boswellia Brigitte 1 Each Tablet, 1 EACH PO BID, (Reported) Guaifenesin 600 Mg Tab.er.12h, 600 MG PO BID, (Reported) Guaifenesin 600 Mg Tab.er.12h, 600 MG PO Q12H PRN for CONGESTION, (Reported) Ibuprofen 200 Mg Tablet, 400-600 MG PO Q8H PRN for PAIN-MILD (1-4), (Reported) Metoprolol Succinate 25 Mg Tab.er.24h, 25 MG PO 1800, (Reported) Tamsulosin HCl 0.4 Mg Cap, 0.4 CAP PO 1800, (Reported) TAKES 30 MINUTES AFTER DINNER Patient Home Medication List Home Medication List Reviewed: Yes Review of Systems Constitutional: No dizziness, No fever, No malaise, No weakness EENTM: no symptoms reported Respiratory: no symptoms reported; No cough, No short of breath Cardiovascular: No chest pain, No edema, No palpitations, No syncope Gastrointestinal: No abdominal pain, No nausea, No vomiting Musculoskeletal: see HPI; No back pain, No joint pain; muscle pain, muscle cramps, neck pain (resolved) Psychiatric/Neurological: Denies Headache, Denies Numbness, Denies Paresthesia, Denies Seizure Past Elodozy-Hqpnxl-Ytftrm Hx Past Med/Social Hx: Reviewed Nursing Past Med/Soc Hx Patient Social History Alcohol Use: Denies Use Recreational Drug Use: No Type Used: Cigars 2nd Hand Smoke Exposure: Yes Recent Hopitalizations: No Physical Abuse: No Sexual Abuse: No Mistreated: No Fear: No Seasonal Allergies Seasonal Allergies: No Past Medical History Surgeries: No Respiratory: No Cardiac: Yes Atrial Fibrillation, Hypertension Neurological: No Genitourinary: No Gastrointestinal: No Musculoskeletal: No Endocrine: No HEENT: No Cancer: No Psychosocial: No Integumentary: No Blood Disorders: No Family Medical History No Pertinent Family Hx Physical Exam Vital Signs Capillary Refill : Height, Weight, BMI Height: '" Weight: lbs. oz. kg; 24.00 BMI Method: General Appearance: No Apparent Distress, WD/WN HEENT: PERRL/EOMI, Normal ENT Inspection Neck: Full Range of Motion, Normal Inspection, Non Tender, Supple Cardiovascular: Regular Rate, Rhythm, No Edema Respiratory: Chest Non Tender, Lungs Clear Extremity: Normal Capillary Refill, Normal Inspection, Normal Range of Motion, Non Tender Neurologic/Psychiatric: Alert, Oriented x3, No Motor/Sensory Deficits, Normal Mood/Affect Departure Impression Primary Impression: Acute cervical myofascial strain Qualified Codes: S16.1XXA - Strain of muscle, fascia and tendon at neck lev el, initial encounter Disposition: 01 HOME, SELF-CARE Condition: Stable Departure-Patient Inst. Decision time for Depature: 12:46 Referrals: NO,LOCAL PHYSICIAN (PCP/Family) Primary Care Physician Patient Instructions: Cervical Muscle Strain (DC), Neck Pain Exercises Add. Discharge Instructions: See your Primary Doctor in 1 week if your neck pain continues or sooner if worse. All discharge instructions reviewed with patient and/or family. Voiced understanding. SKIP LAWSON DO Apr 25, 2020 12:47
== END 2020-04-25 12:52 | disposition home or self-care (01) ==
LOC: EDUNIT# 12:26 → ER FS 12:27
DX: S16.1XXA Strain of muscle, fascia and tendon at neck level, initial encounter (principal); I10 Essential (primary) hypertension; I48.91 Unspecified atrial fibrillation; Z79.51 Long term (current) use of inhaled steroids; Z77.22 Contact with and (suspected) exposure to environmental tobacco smoke (acute) (chronic); X58.XXXA Exposure to other specified factors, initial encounter
CPT/HCPCS: 99282

== ENCOUNTER → 2020-11-16 | Outpatient (CLI) | payer MEDICARE ==
[~2020-11-16] MED LIST changes: -AMIO200T4 PO; +AMIO200T6 PO
== END ==
LOC: CARD 11:00
PROVIDERS: ATTEND Physician Assistant
DX: I08.0 Rheumatic disorders of both mitral and aortic valves (principal); I25.10 Atherosclerotic heart disease of native coronary artery without angina pectoris; I11.9 Hypertensive heart disease without heart failure
CPT/HCPCS: 93306

== ENCOUNTER → 2021-02-03 | Outpatient (CLI) | payer MEDICARE ==
[~2021-02-03] MED LIST changes: +CATHETER FLUSH 10 ML SYR IV PRN; +REGADENOSON 0.4 MG/5 ML SYR (LEXISCAN) IV ONE
[2021-02-03 09:38] VITALS: BP 160/66
--- NOTE | 2021-02-03 17:37 | STRESS TEST ---
DATE OF SERVICE: 02/03/2021 LEXISCAN MYOVIEW STRESS TEST REPORT REFERRING PHYSICIAN: No local physician. In summary, the patient was injected with 10.92 mCi of technetium-99 Myoview and the resting images were obtained. Then, the patient received 0.4 mg of Lexiscan and the stress dose of technetium was given. The resting and stress images were reviewed and compared in the short axis, horizontal long axis, and vertical long axis views. Review of the images showed decreased uptake involving the basal to mid anterior wall and anterolateral wall and basal to mid inferior wall and inferolateral wall, which is fixed, very minimal reversibility, stress score is 13, SDS 0, and TID value 1.09. On the gated images, diffuse left ventricular hypokinesia was noted. Ejection fraction 46%. CONCLUSION: 1. The patient tolerated Lexiscan well. 2. Fixed defect involving the basal to mid anterior wall, anterolateral wall, inferior wall and inferolateral wall with no significant reversibility. 3. Diffuse left ventricular hypokinesia, EF 46%. Job ID: [id number] DocumentID: [id number] Dictated Date: 02/03/2021 15:46:04 Rn Occupational Date: 02/03/2021 17:36:46 Dictated By: LUANA LEO MD
== END ==
LOC: CARD 08:30
PROVIDERS: ATTEND Physician Assistant
DX: I25.10 Atherosclerotic heart disease of native coronary artery without angina pectoris (principal); I10 Essential (primary) hypertension
CPT/HCPCS: 78452; 93017; A9502

== ENCOUNTER 2021-02-17 11:00 | Day surgery (SDC) | payer MEDICARE ==
[2021-02-17] VITALS (10 sets, daily range): BP systolic 141–170; BP diastolic 65–90
[~2021-02-17] VITALS: Ht 182 cm; Wt 100.2 kg
--- NOTE | 2021-02-17 09:24 | Diagnostic Imaging Report ---
INDICATION: Abnormal stress test, cardiac enlargement COMPARISON: 09/25/19 FINDINGS: Single view of the chest demonstrates stable mild cardiac enlargement. Lungs are clear. There is no pneumothorax. The osseous structures are age-appropriate. IMPRESSION: Cardiac enlargement without pulmonary edema or acute infiltrate. Dictated by: Dictated on workstation # [id number]
[2021-02-17 09:51] LABS: HEMATOCRIT 41 % (40-54); HEMOGLOBIN 13.3 g/dL (13.3-17.7); MEAN CORPUSCULAR HEMOGLOBIN 31 pg (25-34); MEAN CORPUSCULAR HGB CONC 32 g/dL (32-36); MEAN CORPUSCULAR VOLUME 95 fL (80-99); MEAN PLATELET VOLUME 10.4 fL (9.0-12.2); PLATELET COUNT 172 10^3/uL (130-400); WHITE BLOOD COUNT 7.3 10^3/uL (4.3-11.0)
[2021-02-17 09:59] LABS: ALBUMIN 4.4 GM/DL (3.2-4.5)
[2021-02-17 10:00] LABS: CALCIUM 9.3 MG/DL (8.5-10.1)
[2021-02-17 10:02] LABS: TOTAL PROTEIN 7.7 GM/DL (6.4-8.2)
[2021-02-17 10:04] LABS: BILIRUBIN,TOTAL 0.7 MG/DL (0.1-1.0); INR 1.1 (0.8-1.4); PROTHROMBIN TIME PATIENT 14.4 SEC (12.2-14.7)
[2021-02-17 10:05] LABS: CREATININE SERUM 1.85 MG/DL (0.60-1.30)
[~2021-02-17 11:00] MED LIST changes: +ATOR20TA66 PO; -CATHETER FLUSH 10 ML SYR IV PRN; +CLOP75TA28 PO; +FURO40TA4 PO; +LOSA25TA41 PO; +NS IV 1000 ML 1,000 ML IV SCH; -REGADENOSON 0.4 MG/5 ML SYR (LEXISCAN) IV ONE; +RIVA20TA PO
[2021-02-17] MEDS ORDERED: LIDOCAINE 1% INJ 20 ML 20 ML VIAL ONE (11:05)
[2021-02-17] MEDS ORDERED: NS IV 1000 ML 1,000 ML ONE (11:05)
[2021-02-17] MEDS ORDERED: HEParin (CATH LAB) 2,000 ML IV ONE (11:05)
[2021-02-17] MEDS ORDERED: fentaNYL INJ 100 MCG/2 ML AMP ONE (12:29)
[2021-02-17] MEDS ORDERED: MIDAZOLAM 5 MG/5 ML (VERSED) VIAL ONE (12:30)
[2021-02-17] MEDS ORDERED: PATIENT MAY USE OWN MEDS, ALL PO SCH (13:30)
[2021-02-17] MEDS ORDERED: NS IV 1000 ML 1,000 ML IV SCH (13:30)
--- NOTE | 2021-02-17 13:32 | Discharge Inst-Post CATH ---
Discharge Inst-CATH/EP Problems Reviewed?: Yes Post Cardiac Cath/EP D/C Inst Follow Up/Plan Appointment with Dr. Garcia's office in 2 to 4 weeks <b>CARDIAC CATH/EP PROCEDURE DISCHARGE INSTRUCTIONS</b> ACTIVITY * Go Home directly and rest. * Limit activity of the leg (or wrist if it was used) for 7 days including aer obics, swimming, jogging, bicycling, etc. * Restrict stair-climbing for 7 days if possible, if not, climb up with your non-cath leg, then bring together on the same step. * Avoid lifting, pushing, pulling or excessive movement of the affected extremi ty for 7 days. * Customary sexual activity may be resumed after 2 days-use caution not to use a position that strains or causes pain to the affected extremity. * No driving for 24 hours. * NO SMOKING. * Avoid straining for bowel movements for 7 days. * Gentle walking on level ground is allowed. * Returning to work will depend on the type of procedure and the results. Your doctor will discuss this with you. CALL YOUR DOCTOR FOR ANY OF THE FOLLOWING: *If bleeding from the puncture site occurs- Apply gentle pressure to site with clean cloth and call your doctor or EMS. * If a knot or lump forms under the skin, increases in size, or causes pain. * If bruising appears to be worsening or moving further down your leg instead of disappearing. * Temperature above 101 F. CARE OF YOUR GROIN INCISION; * Bruising or purple discoloration of the skin near the puncture site is common. * You may shower only, no bathtub bathing for 5 days. Be careful to avoid slipping as your leg may feel stiff. * If a closure device was used on your femoral artery, please see the attached guide regarding care of the device and your leg. * Leave dressing on FOR 24 hours. CARE OF YOUR WRIST INCISION; * Bruising or purple discoloration of the skin near the puncture site is common. * You may shower. * DO NOT submerge wrist. * Leave dressing on FOR 24 hours. LUANA GARCIA MD Feb 17, 2021 1:32 pm
--- NOTE | 2021-02-17 13:35 | Cardiac Cath Report ---
Cardiac Cath Report Physician (s)/Wrapping Clerk (s) Physician LUANA LEO MD Pre-Procedure Diagnosis Pre-Procedure Diagnosis: Coronary artery disease Post-Procedure Note Procedure Start Date: Feb 17, 2021 Name of Procedure: Coronary angiogram Findings/Procedure Note PROCEDURE NOTE: 80-year-old gentleman with history of coronary artery disease, complex intervention, has been having increasing dyspnea, had an abnormal stress test with fixed defect at the inferior wall, scheduled for cardiac catheterization possible PTCA. After explaining the procedure to the patient, all pros and cons were explained, all questions were answered. The patient signed the consent and then he was placed on the cardiac catheterization laboratory. Groin was prepped SL fashion local anesthesia was used. Sheath placed in the right femoral artery. Breezy right and left catheter were used to access the coronary system. I was unable to cross the aortic valve At the end of the procedure the sheath was removed. Closure device was deployed FINDINGS: Hemodynamics LV was not measured Aorta 160/58 mean of 96 ANATOMY: Left Main is free of obstructive disease Left Anterior Descending has moderate ostial stenosis, nonobstructive disease, did not change compared to the previous study of September 2019 Ramus intermedius has proximal stent that is patent with good flow distally. Left Circumflex is small artery with subtotal occlusion, did not change compared to the study of September 2019, medical therapy was recommended Right Coronary Artery has multiple stent and is patent, dominant artery with no obstructive disease CONCLUSION: 1. Patent stent in the right coronary artery and the proximal ramus intermedius, good flow distally 2. Severe stenosis/subtotal occlusion in the proximal circumflex artery that is very small artery, did not change compared to the study of September 2019. 3. Moderate stenosis in the ostial LAD, did not change compared to the study of September 2019 DISCUSSION AND RECOMMENDATION: Conservative management is recommended, continue with medical therapy Anesthesia Type: Conscious Sedation Estimated blood loss (mL): 25 ml Contrast Amount: 24 ml Total Radiation Dose: 507 mGy Post-Procedure Diagnosis Post-operative diagnosis: Coronary artery disease Hypertension Hyperlipidemia Shortness of breath LUANA LEO MD Feb 17, 2021 1:35 pm
--- NOTE | 2021-02-17 14:16 | Conscious Sedation/ASA ---
Conscious Sedation Pre-Proced Time 14:16 ASA Score 3 For ASA 3 and 4: Consider anesthesia and medical clearance. Also, for patients with a history of failed moderate sedation consider anesthesia. Airway Lungs Heart ASA score ASA 1: a normal healthy patient ASA 2: a patient with a mild systemic disease (mid diabetes, controlled hypertension, obesity x ASA 3: a patient with a severe systemic disease that limits activity (angina, COPD, prior Myocardial infarction) ASA 4: a patient with an incapacitating disease that is a constant threat to life (CHF, renal failure) ASA 5: a moribund patient not expected to survive 24 hrs. (ruptured aneurysm) ASA 6: a declared brain- patient whose organs are being harvested. For emergent operations, add the letter E after the classification Mallampati Classification Grade 3 Sedation Plan Analgesia, Amnesia, Plan communicated to team members, Discussed options with patient/fam, Discussed risks with patient/fam The patient is an appropriate candidate to undergo the planned procedure, sedation, and anesthesia. The patient immediately re-assessed prior to indication. LUANA LEO MD Feb 17, 2021 14:16
== END 2021-02-17 17:45 ==
LOC: CATH 11:00 → SDC 13:42 → CATH 17:45
PROVIDERS: ATTEND Internal Medicine Cardiovascular Disease
DX: I25.10 Atherosclerotic heart disease of native coronary artery without angina pectoris (principal); I11.9 Hypertensive heart disease without heart failure; I48.0 Paroxysmal atrial fibrillation; K57.90 Diverticulosis of intestine, part unspecified, without perforation or abscess without bleeding; I65.23 Occlusion and stenosis of bilateral carotid arteries; E78.2 Mixed hyperlipidemia; I35.0 Nonrheumatic aortic (valve) stenosis; Z79.02 Long term (current) use of antithrombotics/antiplatelets; Z79.899 Other long term (current) drug therapy; Z79.01 Long term (current) use of anticoagulants; Z87.891 Personal history of nicotine dependence
CPT/HCPCS: 36415; 71045; 80053; 80061; 85027; 85610; 85730; 87081; 93454

== ENCOUNTER 2022-06-02 14:48 | Emergency (ER) | payer MEDICARE ==
[~2022-06-02] VITALS: Ht 177.8 cm; Wt 100.2 kg
[~2022-06-02 14:48] MED LIST changes: -AMIO200T6 PO; +AMIO200T65 PO; -NS IV 1000 ML 1,000 ML IV SCH
--- NOTE | 2022-06-02 15:28 | ED Integumentary General ---
General Chief Complaint: Skin/Wound Problems Stated Complaint: RT HAND LAC Nursing Triage Note: Patient presents to the ED with c/o skin tear to right dorsal aspect of the hand. States that intial injury happened 3 days ago when he hit the back of his hand against a hard surface. Reports he bandaged the injury but the hit again this morning on the car door reopening the wound. States that he was unable to get the bleeding stopped. Source: patient History of Present Illness Date Seen by Provider: Jun 02, 2022 Time Seen by Provider: 14:54 Initial Comments 82-year-old male presenting with complaints of bleeding from the back of his right hand. He had the back of his hand 3 days ago and it had been bleeding but he was able to get this to stop. He takes Xarelto as a blood thinner and tends to bruise and bleed easily. This morning he excellently hit his hand again against the car door and open the wound up again. He has not been able to get the bleeding to stop since this morning. He has been trying to hold pressure with out it ever completely clotting off. He states he is up to date on vaccinations. Timing/Duration: this morning Severity: mild Location: hands Associated Symptoms: No blisters, No change in skin texture, No edema, No fever, No flushing, No headache, No hives, No jaundice, No malaise, No nasal congestion, No numbness, No pallor, No paresthesia, No petechiae, No rash, No sore throat, No swelling/mass/lumps, No tingling Allergies and Home Medications Allergies Coded Allergies: No Known Drug Allergies (Unverified , 06/30/19) Patient Home Medication List Home Medication List Reviewed: Yes Amiodarone HCl (Amiodarone HCl) 200 Mg Tablet, 200 MG PO 1800, (Reported) Entered as Reported by: SAAD PARRISH on 09/23/19 0835 Atorvastatin Calcium (Atorvastatin Calcium) 20 Mg Tablet, 20 MG PO DAILY, (Reported) Entered as Reported by: JOSHUA POLLARD on 02/17/21 0941 Clopidogrel Bisulfate (Clopidogrel) 75 Mg Tablet, 75 MG PO DAILY, (Reported) Entered as Reported by: JOSHUA POLLARD on 02/17/21 0941 Fluticasone Propionate (Flonase Allergy Relief) 9.9 Ml [place].susp, 1 SPRAY NS DAILY PRN for CONGESTION, (Reported) Entered as Reported by: SAAD PARRISH on 09/23/19 0842 Furosemide (Furosemide) 40 Mg Tablet, 40 MG PO DAILY, (Reported) Entered as Reported by: JOSHUA POLLARD on 02/17/21 0942 Glucosamine/D3/Boswellia Brigitte (Osteo Bi-Flex Tablet) 1 Each Tablet, 1 EACH PO BID, (Reported) Entered as Reported by: SAAD PARRISH on 09/23/19 0842 Losartan Potassium (Losartan Potassium) 25 Mg Tablet, 25 MG PO DAILY, (Reported) Entered as Reported by: JOSHUA POLLARD on 02/17/21 0942 Metoprolol Succinate (Metoprolol Succinate) 25 Mg Tab.er.24h, 25 MG PO 1800, (Reported) Entered as Reported by: SAAD PARRISH on 09/23/19 0835 Rivaroxaban (Xarelto) 20 Mg Tablet, 20 MG PO DAILY, (Reported) Entered as Reported by: JOSHUA POLLARD on 02/17/21 09 Tamsulosin HCl (Flomax) 0.4 Mg Cap, 0.4 CAP PO 1800, (Reported) Entered as Reported by: SAAD PARRISH on 09/23/19 0835 Review of Systems Review of Systems Constitutional: No chills, No fever EENTM: no symptoms reported Respiratory: no symptoms reported Cardiovascular: no symptoms reported Gastrointestinal: no symptoms reported Genitourinary: no symptoms reported Musculoskeletal: no symptoms reported Skin: no symptoms reported Psychiatric/Neurological: No Symptoms Reported Past Uhyqbta-Nwmfqy-Wvmbow Hx Patient Social History Tobacco Use?: No Smoking Status: Former Smoker Substance use?: No Alcohol Use?: No Pt feels they are or have been: No Seasonal Allergies Seasonal Allergies: No Past Medical History Surgery/Hospitalization HX: HTN; CAD; High Cholesterol; Surgeries: No Appendectomy, Tonsillectomy Respiratory: No Cardiac: Yes Atrial Fibrillation, Hypertension Neurological: No Genitourinary: No Gastrointestinal: No Musculoskeletal: No Endocrine: No HEENT: No Cancer: No Psychosocial: No Integumentary: No Blood Disorders: No Family Medical History No Pertinent Family Hx Physical Exam Vital Signs Vital Signs - First Documented 06/02/22 14:50 Temp 36.9 Pulse 65 Resp 16 B/P (MAP) 159/76 (103) Pulse Ox 93 O2 Delivery Room Air Capillary Refill : Less Than 3 Seconds General Appearance: WD/WN, no apparent distress Cardiovascular: normal peripheral pulses Extremities: normal range of motion, normal capillary refill, other (small 1.2 cm skin tear with oozing blood to back of right hand. ) Neurologic/Psychiatric: alert, oriented x 3 Skin: warm/dry, ecchymosis (multiple bruises in various stages of healing) Procedures/Interventions Wound Location: Upper Extremities (Back of his right hand) Wound Length (cm): 1.1 Wound's Depth, Shape: superficial (Skin tear), irregular Wound Explored: clean Other Closure Supply: Steri Strip 08/17", Mastisol Wound was cleaned with chlorhexidine scrub soap. Then using a silver nitrate cautery stick the wound was cauterized. Mastisol was applied around the edges and Steri-Strips were applied to approximate the skin tear wound edges. Patient tolerated all this well without any immediate complication. He appeared to be having hemostasis with this treatment but a pressure dressing was also applied to ensure hemostasis. Counseled on follow-up and return precautions. Progress/Results/Core Measures Results/Orders My Orders Orders - JESSICA PRICE MD Wound Dressing-Ed (06/02/22 15:28) Vital Signs/I&O 06/02/22 06/02/22 14:50 15:32 Temp 36.9 36.9 Pulse 65 65 Resp 16 16 B/P (MAP) 159/76 (103) 159/76 Pulse Ox 93 93 O2 Delivery Room Air Room Air Blood Pressure Mean: 103 Progress Progress Note : Progress Note Wound on the back of his hand was cauterized using silver nitrate. Then 2 Steri-Strips were applied to help approximate the skin tear wound edges along with Mastisol to help the Steri-Strip stick. Patient's bleeding was controlled with this and a pressure dressing was applied to help ensure hemostasis. Counseled on follow-up and return precautions. Departure Impression Primary Impression: Skin tear of right hand without complication Qualified Codes: S61.411A - Laceration without foreign body of right hand, initial encounter Disposition: HOME, SELF-CARE Condition: Stable Departure-Patient Inst. Decision time for Depature: 15:26 Referrals: ELIER GIBSON APRN (PCP) Primary Care Physician [facility] (Family) Primary Care Physician Patient Instructions: Wound Care ED Add. Discharge Instructions: Surgical tape (Steri-strips) were applied to the wound to help bring the edges together and get the bleeding to stop. You also had the wound cauterized with Silver Nitrate. The Surgical tape will peel off on its own over the next several days. Remove the compression dressing after at least 1-2 hours or definitely if it feels too tight. May wash the area with soap and water but do not soak it. All discharge instructions reviewed with patient and/or family. Voiced understanding. JESSICA PRICE MD Jun 02, 2022 15:28
[2022-06-02 15:32] VITALS: BP 159/76
== END 2022-06-02 15:32 | disposition home or self-care (01) ==
LOC: EDUNIT# 14:48 → ER FS 14:49
DX: S61.411A Laceration without foreign body of right hand, initial encounter (principal); I48.91 Unspecified atrial fibrillation; I25.10 Atherosclerotic heart disease of native coronary artery without angina pectoris; Z87.891 Personal history of nicotine dependence; Z79.01 Long term (current) use of anticoagulants; W22.8XXA Striking against or struck by other objects, initial encounter

== ENCOUNTER 2022-06-12 08:51 | Emergency (ER) | payer MEDICARE ==
[~2022-06-12] VITALS: Ht 177.8 cm; Wt 100.2 kg
--- NOTE | 2022-06-12 09:10 | ED Upper Extremity ---
General Chief Complaint: Upper Extremity Stated Complaint: RT ARM INJ Source: patient Exam Limitations: no limitations History of Present Illness Date Seen by Provider: Jun 12, 2022 Time Seen by Provider: 08:53 Initial Comments 82-year-old male with past medical history most notable for A. fib on Xarelto coming in delayed [place] a [place]. [place], tripped backwards landing on his right forearm, and hit his head on a chair. Did not pass out, no headache, remembers all events. Does take Xarelto and did take it yesterday. Has not taken it yet today. Took some ibuprofen and Tylenol for pain yesterday in his right forearm which is persistent. Worse with movement, better with rest. Otherwise denies any other acute complaints. Has been ambulatory since the event. EMS was called last night, and he refused to go to the ER. They told him he likely just has a scratch on his head. Allergies and Home Medications Allergies Coded Allergies: No Known Drug Allergies (Unverified , 06/30/19) Patient Home Medication List Home Medication List Reviewed: Yes Amiodarone HCl (Amiodarone HCl) 200 Mg Tablet, 200 MG PO 1800, (Reported) Entered as Reported by: SAAD PARRISH on 09/23/19 0835 Atorvastatin Calcium (Atorvastatin Calcium) 20 Mg Tablet, 20 MG PO DAILY, (Reported) Entered as Reported by: JOSHUA POLLARD on 02/17/21 0941 Clopidogrel Bisulfate (Clopidogrel) 75 Mg Tablet, 75 MG PO DAILY, (Reported) Entered as Reported by: JOSHUA POLLARD on 02/17/21 0941 Fluticasone Propionate (Flonase Allergy Relief) 9.9 Ml [place].susp, 1 SPRAY NS DAILY PRN for CONGESTION, (Reported) Entered as Reported by: SAAD PARRISH on 09/23/19 0842 Furosemide (Furosemide) 40 Mg Tablet, 40 MG PO DAILY, (Reported) Entered as Reported by: JOSHUA POLLARD on 02/17/21 0942 Glucosamine/D3/Boswellia Brigitte (Osteo Bi-Flex Tablet) 1 Each Tablet, 1 EACH PO BID, (Reported) Entered as Reported by: SAAD PARRISH on 09/23/19 0842 Losartan Potassium (Losartan Potassium) 25 Mg Tablet, 25 MG PO DAILY, (Reported) Entered as Reported by: JOSHUA POLLARD on 02/17/21941 Metoprolol Succinate (Metoprolol Succinate) 25 Mg Tab.er.24h, 25 MG PO 1800, (Reported) Entered as Reported by: SAAD PARRISH on 09/23/19834 Rivaroxaban (Xarelto) 20 Mg Tablet, 20 MG PO DAILY, (Reported) Entered as Reported by: JOSHUA POLLARD on 02/17/21941 Tamsulosin HCl (Flomax) 0.4 Mg Cap, 0.4 CAP PO 1800, (Reported) Entered as Reported by: SAAD PARRISH on 09/23/19834 Review of Systems Constitutional: No fever EENTM: no symptoms reported Respiratory: no symptoms reported Cardiovascular: no symptoms reported Gastrointestinal: no symptoms reported Genitourinary: no symptoms reported Musculoskeletal: see HPI Skin: no symptoms reported Psychiatric/Neurological: No Symptoms Reported All Other Systems Reviewed Negative Unless Noted: Yes Past Nfdebha-Osreoj-Msbhxl Hx Patient Social History Tobacco Use?: No Use of E-Cig and/or Vaping dev: No Substance use?: No Alcohol Use?: No Pt feels they are or have been: No Immunizations Up To Date First/Initial COVID19 Vaccinat: Yes Second COVID19 Vaccination Sergo: Yes Seasonal Allergies Seasonal Allergies: No Past Medical History Surgery/Hospitalization HX: HTN; CAD; High Cholesterol; Surgeries: Yes Appendectomy, Coronary Stent, Tonsillectomy Respiratory: No Cardiac: Yes Atrial Fibrillation, Hypertension Neurological: No Genitourinary: No Gastrointestinal: No Musculoskeletal: No Endocrine: No HEENT: No Cancer: No Psychosocial: No Integumentary: No Blood Disorders: No Family Medical History No Pertinent Family Hx Physical Exam Vital Signs Vital Signs - First Documented 06/12/22 08:53 Temp 36.7 Pulse 69 Resp 16 B/P (MAP) 148/75 (99) Pulse Ox 97 O2 Delivery Room Air Capillary Refill : Height, Weight, BMI Height: '" Weight: lbs. oz. kg; 31.00 BMI Method: General Appearance: WD/WN, no apparent distress HEENT: PERRL/EOMI, normal ENT inspection, pharynx normal Neck: non-tender, full range of motion, supple, normal inspection Cardiovascular: regular rate, rhythm, no edema, no murmur Respiratory: chest non-tender, lungs clear, normal breath sounds, no respiratory distress, no accessory muscle use Gastrointestinal: normal bowel sounds, non tender, soft; No distended, No guarding, No rebound Back: normal inspection, no CVA tenderness, no vertebral tenderness Shoulder: normal inspection, non-tender, no evidence of injury Elbow/Forearm: normal inspection, pain (Proximal forearm mostly proximal radius, decreased range of motion with flexion of the elbow due to pain, does have full supination and pronation, normal neurovascular exam distal to injury) Wrist: Yes normal inspection, Yes non-tender, Yes no evidence of injury, Yes normal ROM Hand: normal inspection, non-tender, no evidence of injury, normal ROM Neurologic/Tendon: normal sensation, normal motor functions Neurologic/Psychiatric: no motor/sensory deficits, alert, normal mood/affect Skin: normal color, warm/dry Lymphatic: no adenopathy Procedures/Interventions Splinting and Joint Reduction : Progress Splint was placed with no difficulty. He was neurovascularly intact before and after splint placement. Pain improved after splint was placed. Arm sling also utilized to help support it. Hand-Made Type: orthoglass Splint Application: Long Arm Progress/Results/Core Measures Results/Orders My Orders Orders - GERONIMO COBB MD Ct Head Wo (06/12/22 09:07) Elbow 3 View Right (06/12/22 09:07) Forearm 2 View Right (06/12/22 09:07) Hydrocodone/Apap 5/325 Tablet (Lortab 5 (06/12/22 09:15) Medications Given in ED Current Medications Medications Dose Ordered Sig/[place] Route Start Time Stop Time Status Last Admin Dose Admin Acetaminophen/ Hydrocodone Bitart 1 ea ONCE ONCE PO 06/12/22 09:15 06/12/22 09:16 DC 06/12/22 09:20 1 EA Vital Signs/I&O 06/12/22 08:53 Temp 36.7 Pulse 69 Resp 16 B/P (MAP) 148/75 (99) Pulse Ox 97 O2 Delivery Room Air Progress Progress Note : Progress Note 82-year-old male with above history coming in after a fall yesterday with right elbow pain. ABCs were intact, GCS 15, vital stable on presentation. He does not have any breaks to any of his skin anywhere. Right elbow tenderness. Right elbow x-ray and forearm x-ray ordered and interpreted by me showing a proximal radial neck fracture on the right which is essentially nondisplaced. He was given hydrocodone for pain. Splint was placed by me. CT head negative for acute findings. I believe he is stable for discharge with outpatient follow-up. He was sent home with strict return precautions Diagnostic Imaging Diagonstic Imaging: Xray (right elbow and forearm), CT (head) Comments [facility], [place] NAME: NICOLA QUESADA [facility] REC#: [id number] PT STATUS: REG ER : 1940 PHYSICIAN: GERONIMO COBB MD ADMIT DATE: 06/12/22/ER FS Draft Date of Exam:06/12/22 CT HEAD WO PROCEDURE: CT head without contrast. TECHNIQUE: Multiple contiguous axial images were obtained through the brain without the use of intravenous contrast. Auto Exposure Controls were utilized during the CT exam to meet ALARA standards for radiation dose reduction. INDICATION: Fall, hit head, pain COMPARISON: None available FINDINGS: Mild atrophy. No intracranial hemorrhage. No intracranial mass, mass effect, midline shift, herniation, hydrocephalus, or extra axial fluid collection. 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 No CT evidence of an acute ischemic infarction. The bilateral ocular lenses are absent. Minimal soft tissue swelling and fat stranding involving the posterior midline scalp superiorly without underlying calvarial fracture. The calvarium and extracalvarial soft tissues are otherwise unremarkable. Partial opacification of the left maxillary sinus with associated mucoperiosteal thickening of the left maxillary sinus watkins. IMPRESSION: No acute intracranial abnormality with mild atrophy and moderate background chronic small vessel white matter ischemic disease. Small soft tissue contusion involving the posterior midline scalp superiorly without underlying calvarial fracture. Dictated on workstation # [id number] Dict: 06/12/22928 Trans: 06/12/2238 [facility] [id number] Interpreted by: TYLOR KIRBY MD Electronically signed by: NAME: NICOLA QUESADA [facility] REC#: [id number] PT STATUS: REG ER : 1940 PHYSICIAN: GERONIMO COBB MD ADMIT DATE: 06/12/22/ER FS Draft Date of Exam:06/12/22 ELBOW 3 VIEW RIGHT INDICATION: Fall and right elbow pain. Time of Exam: 9:27 AM 3 views of the right elbow demonstrate an acute fracture of the proximal radius involving the neck. No definite intra-articular extension is seen. Alignment is normal. Proximal ulna appears intact. Distal humerus appears intact. IMPRESSION: Nondisplaced proximal radius neck fracture. Dictated on workstation # [id number] Dict: 06/12/22 0958 Trans: 06/12/22 1003 [facility] [id number] Interpreted by: ANETA GUTIERREZ MD Electronically signed by: Departure Impression Primary Impression: Fracture of radius Qualified Codes: S52.134A - Nondisplaced fracture of neck of right radius, initial encounter for closed fracture Disposition: 01 HOME, SELF-CARE Condition: Stable Departure-Patient Inst. Decision time for Depature: 10:10 Referrals: ELIER GBISON APRN (PCP) Primary Care Physician [facility] (Family) Primary Care Physician UZIEL HENDRIX Patient Instructions: Radius Fracture (DC) Add. Discharge Instructions: One of the bones in your forearm that connects your elbow is broken. It is minimally displaced. Follow-up with Nicolas Hendrix here in town for further care. Take ibuprofen and or Tylenol as needed for pain. GERONIMO COBB MD Jun 12, 2022 09:10
[2022-06-12] MEDS ORDERED: HYDROcodone/APAP 5 MG/325 MG (LORTAB) TAB PO ONE (09:15)
--- NOTE | 2022-06-12 09:40 | Diagnostic Imaging Report ---
PROCEDURE: CT head without contrast. TECHNIQUE: Multiple contiguous axial images were obtained through the brain without the use of intravenous contrast. Auto Exposure Controls were utilized during the CT exam to meet ALARA standards for radiation dose reduction. INDICATION: Fall, hit head, pain COMPARISON: None available FINDINGS: Mild atrophy. No intracranial hemorrhage. No intracranial mass, mass effect, midline shift, herniation, hydrocephalus, or extra axial fluid collection. 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 No CT evidence of an acute ischemic infarction. The bilateral ocular lenses are absent. Minimal soft tissue swelling and fat stranding involving the posterior midline scalp superiorly without underlying calvarial fracture. The calvarium and extracalvarial soft tissues are otherwise unremarkable. Partial opacification of the left maxillary sinus with associated mucoperiosteal thickening of the left maxillary sinus watkins. IMPRESSION: No acute intracranial abnormality with mild atrophy and moderate background chronic small vessel white matter ischemic disease. Small soft tissue contusion involving the posterior midline scalp superiorly without underlying calvarial fracture. Dictated by: Dictated on workstation # [id number]
--- NOTE | 2022-06-12 10:02 | Diagnostic Imaging Report ---
INDICATION: Fall with right arm pain. Time of Exam: 9:28 AM Two views of the right forearm demonstrate normal alignment at the elbow and wrist. There appears to be a fracture at the neck of the radius proximally. No displacement or angulation is seen. No other fractures are identified. IMPRESSION: Radius neck fracture. No other abnormalities are seen. Dictated by: Dictated on workstation # [id number]
--- NOTE | 2022-06-12 10:04 | Diagnostic Imaging Report ---
INDICATION: Fall and right elbow pain. Time of Exam: 9:27 AM 3 views of the right elbow demonstrate an acute fracture of the proximal radius involving the neck. No definite intra-articular extension is seen. Alignment is normal. Proximal ulna appears intact. Distal humerus appears intact. IMPRESSION: Nondisplaced proximal radius neck fracture. Dictated by: Dictated on workstation # [id number]
[2022-06-12 10:17] VITALS: BP 130/53
== END 2022-06-12 10:17 | disposition home or self-care (01) ==
LOC: EDUNIT# 08:51 → ER FS 08:52
DX: S52.134A Nondisplaced fracture of neck of right radius, initial encounter for closed fracture (principal); I48.91 Unspecified atrial fibrillation; Z79.01 Long term (current) use of anticoagulants; W01.198A Fall on same level from slipping, tripping and stumbling with subsequent striking against other object, initial encounter
CPT/HCPCS: 29105; 70450; 73080; 73090

== ENCOUNTER 2022-06-23 09:12 | Emergency (ER) | payer MEDICARE ==
[~2022-06-23] VITALS: Ht 177 cm; Wt 100.0 kg
[2022-06-23 09:30] VITALS: BP 134/58
[2022-06-23] MEDS ORDERED: TETANUS,DIPTH,PERTUSS P/F (BOOSTRIX) 0.5 ML VIAL IM ONE (09:30)
[2022-06-23] MEDS ORDERED: LIDOCAINE/EPI 2% 1:100,00 (XYLOCAINE) 20 ML VIAL INJ ONE (09:30)
--- NOTE | 2022-06-23 09:33 | ED General ---
General Chief Complaint: Skin/Wound Problems Stated Complaint: LT ARM INFECTION Source of Information: Patient Exam Limitations: No Limitations History of Present Illness Date Seen by Provider: Jun 23, 2022 Time Seen by Provider: 09:20 Initial Comments 82-year-old male with no pertinent past medical history coming in due to concerns for an infection to his left posterior arm. There has been a growth there for years which nobody has said anything needs to be done. Noticed some purulent drainage coming from it over the past day or so and more redness. Its more painful than usual as well. Pain is moderate to mild, throbbing, constant, better when he does not touch it. Has not taken any medicines for it as of yet. Is otherwise denying any other acute complaints including any fever Allergies and Home Medications Allergies Coded Allergies: No Known Drug Allergies (Unverified , 06/30/19) Patient Home Medication List Home Medication List Reviewed: Yes Amiodarone HCl (Amiodarone HCl) 200 Mg Tablet, 200 MG PO 1800, (Reported) Entered as Reported by: SAAD PARRISH on 09/23/19 0835 Atorvastatin Calcium (Atorvastatin Calcium) 20 Mg Tablet, 20 MG PO DAILY, (Reported) Entered as Reported by: JOSHUA POLLARD on 02/17/21 0941 Clopidogrel Bisulfate (Clopidogrel) 75 Mg Tablet, 75 MG PO DAILY, (Reported) Entered as Reported by: JOSHUA POLLARD on 02/17/21 0941 Fluticasone Propionate (Flonase Allergy Relief) 9.9 Ml [place].susp, 1 SPRAY NS DAILY PRN for CONGESTION, (Reported) Entered as Reported by: SAAD PARRISH on 09/23/19 0842 Furosemide (Furosemide) 40 Mg Tablet, 40 MG PO DAILY, (Reported) Entered as Reported by: JOSHUA POLLARD on 02/17/21 0942 Glucosamine/D3/Boswellia Brigitte (Osteo Bi-Flex Tablet) 1 Each Tablet, 1 EACH PO BID, (Reported) Entered as Reported by: SAAD PARRISH on 09/23/19 0842 Losartan Potassium (Losartan Potassium) 25 Mg Tablet, 25 MG PO DAILY, (Reported) Entered as Reported by: JOSHUA POLLARD on 02/17/21 0942 Metoprolol Succinate (Metoprolol Succinate) 25 Mg Tab.er.24h, 25 MG PO 1800, (Reported) Entered as Reported by: SAAD PARRISH on 09/23/19 0835 Rivaroxaban (Xarelto) 20 Mg Tablet, 20 MG PO DAILY, (Reported) Entered as Reported by: JOSHUA POLLARD on 02/17/21 0942 Tamsulosin HCl (Flomax) 0.4 Mg Cap, 0.4 CAP PO 1800, (Reported) Entered as Reported by: SAAD PARRISH on 09/23/19 0835 Review of Systems Review of Systems Constitutional: No fever EENTM: no symptoms reported Respiratory: no symptoms reported Cardiovascular: no symptoms reported Gastrointestinal: no symptoms reported Genitourinary: no symptoms reported Musculoskeletal: no symptoms reported Skin: see HPI Psychiatric/Neurological: No Symptoms Reported Hematologic/Lymphatic: No Symptoms Reported Immunological/Allergic: no symptoms reported All Other Systems Reviewed Negative Unless Noted: Yes Past Hbhyidv-Pliycn-Aiemwy Hx Patient Social History Tobacco Use?: No Immunizations Up To Date First/Initial COVID19 Vaccinat: Yes Second COVID19 Vaccination Sergo: Yes Seasonal Allergies Seasonal Allergies: No Past Medical History Surgery/Hospitalization HX: HTN; CAD; High Cholesterol; Surgeries: Yes Appendectomy, Coronary Stent, Tonsillectomy Respiratory: No Cardiac: Yes Atrial Fibrillation, Hypertension Neurological: No Genitourinary: No Gastrointestinal: No Musculoskeletal: No Endocrine: No HEENT: No Cancer: No Psychosocial: No Integumentary: No Blood Disorders: No Family Medical History No Pertinent Family Hx Physical Exam Vital Signs Vital Signs - First Documented 06/23/22 09:30 Temp 35.8 Pulse 70 Resp 18 B/P (MAP) 134/58 (83) Pulse Ox 100 Capillary Refill : Height, Weight, BMI Height: '" Weight: lbs. oz. kg; 31.00 BMI Method: General Appearance: No Apparent Distress, WD/WN Eyes: Bilateral Eye Normal Inspection HEENT: PERRL/EOMI, Normal ENT Inspection, Pharynx Normal Neck: Full Range of Motion, Normal Inspection, Non Tender, Supple Respiratory: Chest Non Tender, Lungs Clear, Normal Breath Sounds, No Accessory Muscle Use, No Respiratory Distress Cardiovascular: Regular Rate, Rhythm, No Edema, Normal Peripheral Pulses Gastrointestinal: Normal Bowel Sounds, Non Tender, Soft; No Guarding Back: Normal Inspection, No CVA Tenderness Extremity: Normal Capillary Refill, Normal Range of Motion, Non Tender, No Calf Tenderness, No Pedal Edema, Other (Left tricep area with large 3 cm area of fluctuance and erythema) Neurologic/Psychiatric: Alert, No Motor/Sensory Deficits, Normal Mood/Affect Skin: Normal Color, Warm/Dry, Rash Lymphatic: No Adenopathy Procedures/Interventions I&D : Site: left tricep area Blade Size: 11 I & D Procedure: betadine prep Progress A total of 5 cc of 2% lidocaine with epinephrine were used to anesthetize the area after cleaning it. A single stab incision with an 11 blade followed by pressure with copious amounts of purulent drainage as well as cheesy white discharge consistent with an infected sebaceous cyst Progress/Results/Core Measures Suspected Sepsis SIRS Temperature: Pulse: Respiratory Rate: Blood Pressure / Mean: Results/Orders My Orders Orders - GERONIMO COBB MD Dipht,Pertuss(Acell),Tet Adult (Boostrix (06/23/22 09:30) Lidocaine/Epi 2% 1:100,000 (Xylocaine/Ep (06/23/22 09:30) Lidocaine/Epi Mpf 2% 1:200,000 (Xylocain (06/23/22 09:44) Medications Given in ED Current Medications Medications Dose Ordered Sig/[place] Route Start Time Stop Time Status Last Admin Dose Admin Diphtheria/ Tetanus/Acell Pertussis 0.5 ml ONCE ONCE IM 06/23/22 09:30 06/23/22 09:31 DC 06/23/22 09:41 0.5 ML Vital Signs/I&O 06/23/22 09:30 Temp 35.8 Pulse 70 Resp 18 B/P (MAP) 134/58 (83) Pulse Ox 100 Capillary Refill : Progress Note : Progress Note 82-year-old male with above history coming in due to concerns for infection on his left arm. ABCs were intact and vitals are stable on presentation. Physical exam appears like sebaceous cyst versus abscess. After draining it, it does appear to be a sebaceous cyst that also was infected. We will start on antibiotics and have him follow-up with the surgeon after it heals some talk about removing it permanently Departure Impression Primary Impression: Sebaceous cyst Additional Impression: Abscess Disposition: 01 HOME, SELF-CARE Condition: Improved Departure-Patient Inst. Decision time for Depature: 09:54 Referrals: ELIER GIBSON APRN (PCP) Primary Care Physician [facility] (Family) Primary Care Physician HILARY JIANG DO Patient Instructions: Abscess Incision and Drainage ED Add. Discharge Instructions: You have what is called a sebaceous cyst. These will continue to come back as it fills back up. After the inflammation is gone, follow back up with Dr. Jiang in [place], or the surgeon of your choice to talk about removing it permanently. Unfortunately, your is got to the point today where he got infected. You need to be on antibiotics for the next week Scripts Doxycycline Hyclate (Doxycycline Hyclate) 100 Mg Tablet 100 MG PO BID for 7 Days, #14 TAB 0 Refills Prov: GERONIMO COBB MD 06/23/22 GERONIMO COBB MD Jun 23, 2022 09:33
[2022-06-23] MEDS ORDERED: LIDOCAINE/EPI 2% 1:200,00 (XYLOCAINE) 20 ML VIAL ONE (09:44)
[2022-06-23] MEDS ORDERED: DOXY100T2 PO (09:55)
== END 2022-06-23 09:57 | disposition home or self-care (01) ==
LOC: EDUNIT# 09:12 → ER FS 09:14
DX: L72.3 Sebaceous cyst (principal)
CPT/HCPCS: 10160; 90715

== ENCOUNTER → 2022-06-30 | Outpatient (CLI) | payer MEDICARE ==
[~2022-06-30] MED LIST changes: +DOXY100T2 PO
--- NOTE | 2022-06-30 15:04 | Diagnostic Imaging Report ---
INDICATION: Right elbow fracture AP, oblique, and lateral views of the right elbow are obtained. COMPARISON made with 06/12/2022 Compared to the prior study, the radial head fracture appears in stable alignment. Remaining structures are intact. There are chronic changes of the humeral epicondyles on both sides. IMPRESSION: Stable appearance of radial head fracture with no acute-appearing abnormality. Dictated by: Dictated on workstation # [id number]
== END ==
LOC: RAD FS 08:57
PROVIDERS: ATTEND Nurse Practitioner
DX: S52.134A Nondisplaced fracture of neck of right radius, initial encounter for closed fracture (principal); X58.XXXA Exposure to other specified factors, initial encounter
CPT/HCPCS: 73080

== ENCOUNTER 2022-08-18 14:59 | Emergency (ER) | payer MEDICARE ==
[~2022-08-18] VITALS: Ht 177 cm; Wt 100.0 kg
[2022-08-18] MEDS ORDERED: NS IV 1000 ML 1,000 ML IV STA (15:13)
[2022-08-18 15:25] VITALS: BP_SYST 110; BP_SYST 145; BP_SYST 72; BP_DIAS 38; BP_DIAS 52; BP_DIAS 61
--- NOTE | 2022-08-18 15:26 | ED General ---
General Chief Complaint: General Problems/Pain Stated Complaint: ABN EKG; DEC BP WHEN STANDING Source of Information: Patient, Old Records (office visit note and ECG from [facility] clinic today) Exam Limitations: No Limitations History of Present Illness Date Seen by Provider: Aug 18, 2022 Time Seen by Provider: 15:02 Initial Comments 82-year-old male presenting from the [facility] clinic due to complaints of feeling like his legs were weak when he gets up to walk. He states this is been an ongoing issue for him that is worse at certain times. He had gone to the clinic today for a nail trim and to check on a boil in his right groin. He has been on Bactrim antibiotic for the boil and they felt that that was improving. However after his nail trim he felt like he had more weakness in his legs when he got up and they had done orthostatic vital signs as well as an EKG in the clinic. They felt like he had low blood pressure and needed to come to the emergency department. He denied having any chest pain, headache, change in vision, shortness of breath, nausea, vomiting, diarrhea, blood in his stools, blood in his urine, pain with urination, fever, chills, body aches, congestion, cough, sore throat, nasal drainage. He denied having any dizziness or lightheadedness with standing but just felt like his legs were weak and were going to give out on him. In the past he reports that that has improved if he did his physical therapy exercises for his legs. He did try that today since he missed his exercises yesterday but felt that it had not improved his leg strength. Timing/Duration: 4-6 Hours Severity: Moderate Modifying Factors: worse with Movement (Getting up and walking makes him feel like his legs are weak and might give out) Associated Systoms: No Chest Pain, No Cough, No Diaphoresis, No Fever/Chills, No Headaches, No Loss of Appetite, No Malaise, No Nausea/Vomiting, No Rash, No Seizure, No Shortness of Air, No Syncope; Weakness (leg weakness with standing.) Allergies and Home Medications Allergies Coded Allergies: No Known Drug Allergies (Unverified , 06/30/19) Patient Home Medication List Home Medication List Reviewed: Yes Amiodarone HCl (Amiodarone HCl) 200 Mg Tablet, 200 MG PO 1800, (Reported) Entered as Reported by: SAAD PARRISH on 09/23/19834 Atorvastatin Calcium (Atorvastatin Calcium) 20 Mg Tablet, 20 MG PO DAILY, (Reported) Entered as Reported by: JOSHUA POLLARD on 02/17/21 09 Clopidogrel Bisulfate (Clopidogrel) 75 Mg Tablet, 75 MG PO DAILY, (Reported) Entered as Reported by: JOSHUA POLLARD on 02/17/21 09 Doxycycline Hyclate (Doxycycline Hyclate) 100 Mg Tablet, 100 MG PO BID Prescribed by: GERONIMO COBB on 06/23/22 09 Fluticasone Propionate (Flonase Allergy Relief) 9.9 Ml [place].susp, 1 SPRAY NS DAILY PRN for CONGESTION, (Reported) Entered as Reported by: SAAD PARRISH on 09/23/19841 Furosemide (Furosemide) 40 Mg Tablet, 40 MG PO DAILY, (Reported) Entered as Reported by: JOSHUA POLLARD on 02/17/21941 Glucosamine/D3/Boswellia Brigitte (Osteo Bi-Flex Tablet) 1 Each Tablet, 1 EACH PO BID, (Reported) Entered as Reported by: SAAD PARRISH on 09/23/19841 Losartan Potassium (Losartan Potassium) 25 Mg Tablet, 25 MG PO DAILY, (Reported) Entered as Reported by: JOSHUA POLLARD on 02/17/21941 Metoprolol Succinate (Metoprolol Succinate) 25 Mg Tab.er.24h, 25 MG PO 1800, (Reported) Entered as Reported by: SAAD PARRISH on 09/23/19834 Rivaroxaban (Xarelto) 20 Mg Tablet, 20 MG PO DAILY, (Reported) Entered as Reported by: JOSHUA POLLARD on 02/17/21941 Tamsulosin HCl (Flomax) 0.4 Mg Cap, 0.4 CAP PO 1800, (Reported) Entered as Reported by: SAAD PARRISH on 09/23/19834 Review of Systems Review of Systems Constitutional: No chills, No diaphoresis, No dizziness, No fever EENTM: no symptoms reported Respiratory: see HPI Cardiovascular: see HPI Gastrointestinal: see HPI Genitourinary: No dysuria, No frequency Musculoskeletal: no symptoms reported Skin: see HPI (healing boil to right groin) Psychiatric/Neurological: Denies Headache, Denies Numbness, Denies Paresthesia Hematologic/Lymphatic: Denies Blood Clots Past Sdlfxld-Ydkslj-Hskyay Hx Patient Social History Tobacco Use?: No Use of E-Cig and/or Vaping dev: No Substance use?: No Alcohol Use?: No Immunizations Up To Date First/Initial COVID19 Vaccinat: Yes Second COVID19 Vaccination Sergo: Yes Seasonal Allergies Seasonal Allergies: No Past Medical History Surgery/Hospitalization HX: HTN; CAD; High Cholesterol; paroxysmal atrial fibrillation, chronic renal insufficiency Surgeries: Yes Appendectomy, Coronary Stent, Tonsillectomy Respiratory: No Cardiac: Yes Atrial Fibrillation, Hypertension Neurological: No Genitourinary: No Gastrointestinal: No Musculoskeletal: No Endocrine: No HEENT: No Cancer: No Psychosocial: No Integumentary: No Blood Disorders: No Family Medical History No Pertinent Family Hx Physical Exam Vital Signs Vital Signs - First Documented 08/18/22 15:18 Temp 36.4 Pulse 54 Resp 18 B/P (MAP) 157/103 (121) Pulse Ox 98 O2 Delivery Room Air Capillary Refill : Height, Weight, BMI Height: '" Weight: lbs. oz. kg; 31.00 BMI Method: General Appearance: No Apparent Distress, WD/WN HEENT: PERRL/EOMI, Pharynx Normal Neck: Full Range of Motion, Normal Inspection, Non Tender, Supple Respiratory: Chest Non Tender, Lungs Clear, Normal Breath Sounds, No Accessory Muscle Use, No Respiratory Distress Cardiovascular: Regular Rate, Rhythm, Normal Peripheral Pulses, Systolic Murmur Gastrointestinal: Normal Bowel Sounds, No Pulsatile Mass, Non Tender, Soft Rectal: Deferred Back: No CVA Tenderness, No Vertebral Tenderness Extremity: Normal Capillary Refill, Normal Inspection, No Calf Tenderness, No Pedal Edema Neurologic/Psychiatric: Alert, Oriented x3, curtain cleaner II-XII Norm as Tested Skin: Normal Color, Warm/Dry Progress/Results/Core Measures Suspected Sepsis SIRS Temperature: Pulse: Respiratory Rate: Laboratory Tests 08/18/22 15:15: White Blood Count 7.3 Blood Pressure / Mean: Laboratory Tests 08/18/22 15:15: Creatinine 2.84H, INR Comment 1.9H, Platelet Count 241, Total Bilirubin 0.3 Results/Orders Lab Results Laboratory Tests Test 08/18/22 15:15 Range/Units White Blood Count 7.3 4.3-11.0 10^3/uL Red Blood Count 4.26 L 4.30-5.52 10^6/uL Hemoglobin 11.6 L 13.3-17.7 g/dL Hematocrit 35 L 40-54 % Mean Corpuscular Volume 83 80-99 fL Mean Corpuscular Hemoglobin 27 25-34 pg Mean Corpuscular Hemoglobin Concent 33 32-36 g/dL Red Cell Distribution Width 16.3 H 10.0-14.5 % Platelet Count 241 130-400 10^3/uL Mean Platelet Volume 10.3 9.0-12.2 fL Immature Granulocyte % (Auto) 0 % Neutrophils (%) (Auto) 77 H 42-75 % Lymphocytes (%) (Auto) 8 L 12-44 % Monocytes (%) (Auto) 8 0-12 % Eosinophils (%) (Auto) 6 0-10 % Basophils (%) (Auto) 1 0-10 % Neutrophils # (Auto) 5.6 1.8-7.8 10^3/uL Lymphocytes # (Auto) 0.6 L 1.0-4.0 10^3/uL Monocytes # (Auto) 0.6 0.0-1.0 10^3/uL Eosinophils # (Auto) 0.4 H 0.0-0.3 10^3/uL Basophils # (Auto) 0.0 0.0-0.1 10^3/uL Immature Granulocyte # (Auto) 0.0 0.0-0.1 10^3/uL Neutrophils % (Manual) 81 % Lymphocytes % (Manual) 6 % Monocytes % (Manual) 6 % Eosinophils % (Manual) 7 % Basophils % (Manual) 0 % Band Neutrophils 0 % Prothrombin Time 22.0 H 12.2-14.7 SEC INR Comment 1.9 H 0.8-1.4 Activated Partial Thromboplast Time 45 H 24-35 SEC Sodium Level 137 135-145 MMOL/L Potassium Level 4.6 3.6-5.0 MMOL/L Chloride Level 101 98-107 MMOL/L Carbon Dioxide Level 20 L 21-32 MMOL/L Anion Gap 16 H 5-14 MMOL/L Blood Urea Nitrogen 43 H 7-18 MG/DL Creatinine 2.84 H 0.60-1.30 MG/DL Estimat Glomerular Filtration Rate 22 BUN/Creatinine Ratio 15 Glucose Level 94 70-105 MG/DL Calcium Level 9.3 8.5-10.1 MG/DL Corrected Calcium 9.3 8.5-10.1 MG/DL Magnesium Level 2.4 1.6-2.4 MG/DL Total Bilirubin 0.3 0.1-1.0 MG/DL Aspartate Amino Transf (AST/SGOT) 41 H 5-34 U/L Alanine Aminotransferase (ALT/SGPT) 60 H 0-55 U/L Alkaline Phosphatase 103 40-136 U/L Myoglobin 145.3 H <72.0 NG/ML Troponin I < 0.30 <0.30 NG/ML Pro-B-Type Natriuretic Peptide 888.9 H <450.0 PG/ML Total Protein 7.4 6.4-8.2 GM/DL Albumin 4.0 3.2-4.5 GM/DL Lipase 29 8-78 U/L My Orders Orders - JESSICA PRICE MD Cbc With Automated Diff (08/18/22 15:04) Magnesium (08/18/22 15:04) Ekg Tracing (08/18/22 15:04) Comprehensive Metabolic Panel (08/18/22 15:04) Myoglobin Serum (08/18/22 15:04) Protime With Inr (08/18/22 15:04) Partial Thromboplastin Time (08/18/22 15:04) O2 (08/18/22 15:04) Monitor-Rhythm Ecg Trace Only (08/18/22 15:04) Ed Iv/Invasive Line Start (08/18/22 15:04) Lipase (08/18/22 15:04) Troponin I Fs (08/18/22 15:04) Probnp Fs (08/18/22 15:04) Orthostatic Vital Signs (Adult (08/18/22 15:13) Ns Iv 1000 Ml (Sodium Chloride 0.9%) (08/18/22 15:13) Manual Differential (08/18/22 15:15) Orthostatic Vital Signs (Adult (08/18/22 16:33) Vital Signs/I&O 08/18/22 08/18/22 08/18/22 15:18 15:25 16:41 Temp 36.4 Pulse 54 52 56 58 63 64 66 Resp 18 B/P (MAP) 157/103 (121) 145/52 (83) 141/60 (87) 110/61 (77) 115/73 (87) 72/38 (49) 113/51 (71) Pulse Ox 98 O2 Delivery Room Air Capillary Refill : Progress Note #1: Progress Note Obtain CBC, chemistry, cardiac enzymes, urinalysis, electrocardiogram and orthostatic vital signs. Placed on cardiac equipment monitor phototypesetting which showed sinus bradycardia without ectopy or ischemia. His electrocardiogram was performed and showed sinus bradycardia without ST elevation. Appears similar to tracing from September 22, 2019. His orthostatic vital signs did show a drop in his blood pressure with him standing and dropped to 73 systolic for his blood pressure. H e denied dizziness or lightheadedness but said that his legs felt weak. We will administer normal saline 1 L IV fluid bolus for possible dehydration. Continue to monitor on the cardiac equipment monitor phototypesetting as well as repeat vital signs. Progress Note #2: Time: 16:17 Progress Note On my review of his labs his CBC did not show an elevated white blood cell count to go with any infection. His hemoglobin was mildly low at 11.6 which was similar to 2019 when he last had blood work with [facility]. He has acute on chronic kidney injury with baseline Cr 1.8 and today he is up to 2.84 with elevated BUN to 43. This could indicate some dehydration on top of his chronic renal insufficiency. His proBNP is at 889, which is improved from 09/22/2019 when he was 1347 for his proBNP. Will see how his blood pressure and orthostatic vitals are doing after the IVF 1 L NS for hydration. If he is doing better could consider discharge to home with him holding his Lasix until next week when he could have labs rechecked with clinic. If he continues to tilt with orthostatic vitals will check with Dr. Wright, donor services coordinator provider for [facility] service, about admit for gentle hydration and holding his Lasix in the hospital. Progress Note #3: Progress Note Patient felt like he was doing better and his orthostatic vital signs showed improvement. He reports that the weakness in his legs with standing has resolved since getting fluids here in the ED. He voiced understanding of having to hold his Lasix through the weekend and to get a repeat lab test on Monday to reevaluate what his kidney function is doing. They may restart his Lasix or started at a different dose or frequency. We will see how he does over the weekend and counseled that if he had worsening symptoms or was not improving over the weekend be seen again. Although I considered admission for his condition with orthostatic hypotension and acute on chronic renal failure, since he was improved he can be managed safely with outpatient management and see how he does with that. ECG Initial ECG Impression Date: Aug 18, 2022 Initial ECG Impression Time: 15:12 Initial ECG Rate: 52 Initial ECG Rhythm: S.Carlitos Initial ECG Comparisson: Changed (Flattening of T waves compared to 09/22/2019) Comment Based on my personal interpretation and review of his electrocardiogram he has sinus bradycardia with a heart rate of 52 bpm. Prolonged AR interval of [address] elevation. He has some global T wave flattening. QT interval 382 ms with a QTc interval 362 ms. Overall appears similar to prior tracing from September 22, 2019 other than he has global T wave flattening now. Departure Impression Primary Impression: Orthostatic hypotension Additional Impressions: Mgcoi-bf-glctqer kidney injury Qualified Codes: N17.9 - Acute kidney failure, unspecified; N18.4 - Chronic kidney disease, stage 4 (severe) Dehydration Disposition: HOME, SELF-CARE Condition: Improved Departure-Patient Inst. Decision time for Depature: 17:01 Referrals: ELIER GIBSON APRN (PCP) Primary Care Physician [facility] (Family) Primary Care Physician Patient Instructions: Dehydration, Adult ED, Low Blood Pressure (DC), Chronic Kidney Disease (DC) Add. Discharge Instructions: Hold your Furosemide (Lasix) for this weekend. This will give your kidneys a chance to recover and see if the Creatinine for your kidney function improves. Have lab redrawn on Monday to see what your kidney function is doing. Dr. Garcia and VINNY Gibson may need to adjust your dose or change how you take the Lasix. They likely will want you to check with a kidney doctor as well. If you have worsening symptoms or more problems before Monday then return to clinic or ER for recheck. All discharge instructions reviewed with patient and/or family. Voiced understanding. JESSICA PRICE MD Aug 18, 2022 15:26
[2022-08-18 15:28] LABS: BASOPHILS % (AUTO) 1 % (0-10); EOSINOPHILS # (AUTO) 0.4 10^3/uL (0.0-0.3); EOSINOPHILS % (AUTO) 6 % (0-10); HEMATOCRIT 35 % (40-54); HEMOGLOBIN 11.6 g/dL (13.3-17.7); LYMPHOCYTES # (AUTO) 0.6 10^3/uL (1.0-4.0); LYMPHOCYTES % (AUTO) 8 % (12-44); MEAN CORPUSCULAR HEMOGLOBIN 27 pg (25-34); MEAN CORPUSCULAR HGB CONC 33 g/dL (32-36); MEAN CORPUSCULAR VOLUME 83 fL (80-99); MEAN PLATELET VOLUME 10.3 fL (9.0-12.2); MONOCYTES # (AUTO) 0.6 10^3/uL (0.0-1.0); MONOCYTES % (AUTO) 8 % (0-12); NEUTROPHILS # (AUTO) 5.6 10^3/uL (1.8-7.8); NEUTROPHILS % (AUTO) 77 % (42-75); PLATELET COUNT 241 10^3/uL (130-400); WHITE BLOOD COUNT 7.3 10^3/uL (4.3-11.0)
[2022-08-18 15:36] LABS: INR 1.9 (0.8-1.4)
[2022-08-18 15:52] LABS: POTASSIUM 4.6 MMOL/L (3.6-5.0)
[2022-08-18 15:53] LABS: BILIRUBIN,TOTAL 0.3 MG/DL (0.1-1.0); CALCIUM 9.3 MG/DL (8.5-10.1); CREATININE SERUM 2.84 MG/DL (0.60-1.30); MAGNESIUM 2.4 MG/DL (1.6-2.4)
[2022-08-18 15:54] LABS: TOTAL PROTEIN 7.4 GM/DL (6.4-8.2)
[2022-08-18 16:17] LABS: BAND NEUTROPHILS 0 %; BASOPHILS % (MANUAL) 0 %; EOSINOPHILS % (MANUAL) 7 %; LYMPHOCYTES % (MANUAL) 6 %; MONOCYTES % (MANUAL) 6 %; NEUTROPHILS % (MANUAL) 81 %
[2022-08-18 16:41] VITALS: BP_SYST 113; BP_SYST 115; BP_SYST 141; BP_DIAS 51; BP_DIAS 60; BP_DIAS 73
== END 2022-08-18 17:15 | disposition home or self-care (01) ==
LOC: EDUNIT# 14:59 → ER FS 15:01
DX: I95.1 Orthostatic hypotension (principal); E86.0 Dehydration; I12.9 Hypertensive chronic kidney disease with stage 1 through stage 4 chronic kidney disease, or unspecified chronic kidney disease; N18.9 Chronic kidney disease, unspecified; N17.9 Acute kidney failure, unspecified; R00.1 Bradycardia, unspecified
CPT/HCPCS: 36415; 80053; 83690; 83735; 83874; 83880; 84484; 85007; 85027; 85610; 85730; 93005; 93041; 96360

== ENCOUNTER → 2022-08-22 | Outpatient (CLI) | payer MEDICARE ==
[2022-08-22 09:48] LABS: POTASSIUM 4.7 MMOL/L (3.6-5.0)
[2022-08-22 09:49] LABS: CALCIUM 9.4 MG/DL (8.5-10.1); CREATININE SERUM 2.39 MG/DL (0.60-1.30)
== END ==
LOC: LAB FS 08:56
PROVIDERS: ATTEND Family Medicine
DX: N18.9 Chronic kidney disease, unspecified (principal)
CPT/HCPCS: 36415; 80048

== ENCOUNTER → 2022-10-04 | Outpatient (CLI) | payer MEDICARE | LOC: CARDFS 09:50 | PROVIDERS: ATTEND Physician Assistant | DX: I11.9 Hypertensive heart disease without heart failure (principal); I08.0 Rheumatic disorders of both mitral and aortic valves | CPT/HCPCS: 93306 ==

== ENCOUNTER 2022-11-08 10:47 | Emergency (ER) | payer MEDICARE ==
[~2022-11-08] VITALS: Ht 177.8 cm; Wt 96.4 kg
--- NOTE | 2022-11-08 11:01 | ED Fall/Injury ---
General Chief Complaint: Chest Wall Stated Complaint: FALL; RT RIB PAIN Source: patient Exam Limitations: no limitations History of Present Illness Date Seen by Provider: Nov 08, 2022 Time Seen by Provider: 10:47 Initial Comments 82-year-old male presents to the emergency department today for right chest wall pain. He had a mechanical fall, tripping on concrete sidewalk yesterday coming down onto his right knee, right wrist and right chest wall. He states the knee and wrist are sore but only minimally so and improving. His main concern is his right chest wall pain and feeling he may have broken some ribs. He states he is unable to cough or take a deep breath without severe pain. Just at rest when taking shallow breaths it is minimal pain however deep inspiration causes severe pain. Has been using Tylenol without much relief. All other systems reviewed and negative except documented per HPI. Voice recognition software was used to help create this chart Allergies and Home Medications Allergies Coded Allergies: No Known Drug Allergies (Unverified , 06/30/19) Patient Home Medication List Home Medication List Reviewed: Yes Amiodarone HCl (Amiodarone HCl) 200 Mg Tablet, 200 MG PO 1800, (Reported) Entered as Reported by: SAAD PARRISH on 09/23/19 0835 Atorvastatin Calcium (Atorvastatin Calcium) 20 Mg Tablet, 20 MG PO DAILY, (Reported) Entered as Reported by: JOSHUA POLLARD on 02/17/21 09 Clopidogrel Bisulfate (Clopidogrel) 75 Mg Tablet, 75 MG PO DAILY, (Reported) Entered as Reported by: JOSHUA POLLARD on 02/17/21 0941 Doxycycline Hyclate (Doxycycline Hyclate) 100 Mg Tablet, 100 MG PO BID Prescribed by: GERONIMO COBB on 06/23/22 0955 Fluticasone Propionate (Flonase Allergy Relief) 9.9 Ml [place].susp, 1 SPRAY NS DAILY PRN for CONGESTION, (Reported) Entered as Reported by: SAAD PARRISH on 09/23/19 08 Furosemide (Furosemide) 40 Mg Tablet, 40 MG PO DAILY, (Reported) Entered as Reported by: JOSHUA POLLARD on 02/17/21 0942 Glucosamine/D3/Boswellia Brigitte (Osteo Bi-Flex Tablet) 1 Each Tablet, 1 EACH PO BID, (Reported) Entered as Reported by: SAAD PARRISH on 09/23/19 08 Losartan Potassium (Losartan Potassium) 25 Mg Tablet, 25 MG PO DAILY, (Reported) Entered as Reported by: JOSHUA POLLARD on 02/17/21 09 Metoprolol Succinate (Metoprolol Succinate) 25 Mg Tab.er.24h, 25 MG PO 1800, (Reported) Entered as Reported by: SAAD PARRISH on 09/23/19 0835 Rivaroxaban (Xarelto) 20 Mg Tablet, 20 MG PO DAILY, (Reported) Entered as Reported by: JOSHUA POLLARD on 02/17/21 09 Tamsulosin HCl (Flomax) 0.4 Mg Cap, 0.4 CAP PO 1800, (Reported) Entered as Reported by: SAAD PARRISH on 09/23/19 0835 Review of Systems Review of Systems Constitutional: see HPI Past Ovgbsue-Prjgrk-Rbaqra Hx Patient Social History Tobacco Use?: No Use of E-Cig and/or Vaping dev: No Substance use?: No Alcohol Use?: No Immunizations Up To Date First/Initial COVID19 Vaccinat: Yes Second COVID19 Vaccination Sergo: Yes Third COVID19 Vaccination Date: Yes Seasonal Allergies Seasonal Allergies: No Past Medical History Surgery/Hospitalization HX: HTN; CAD; High Cholesterol; paroxysmal atrial fibrillation, chronic renalinsufficiency Surgeries: Yes Appendectomy, Coronary Stent, Tonsillectomy Respiratory: No Cardiac: Yes Atrial Fibrillation, Hypertension Neurological: No Genitourinary: No Gastrointestinal: No Musculoskeletal: No Endocrine: No HEENT: No Cancer: No Psychosocial: No Integumentary: No Blood Disorders: No Family Medical History No Pertinent Family Hx Physical Exam Vital Signs Vital Signs - First Documented 11/08/22 10:50 Temp 36.3 Pulse 81 Resp 18 B/P (MAP) 133/70 (91) Pulse Ox 100 O2 Delivery Room Air Capillary Refill : Height, Weight, BMI Height: '" Weight: lbs. oz. kg; 31.00 BMI Method: General Appearance: WD/WN, no apparent distress HEENT: normal ENT inspection, pharynx normal, other (Has a swollen right upper lip) Neck: non-tender, full range of motion, supple Cardiovascular: regular rate, rhythm, no murmur Respiratory: lungs clear, normal breath sounds, other (Tenderness palpation right anterior chest wall at the area of some bruising. There is no obvious crepitus or deformity. Equal breath sounds bilaterally.) Gastrointestinal: normal bowel sounds, non tender, soft Back: normal inspection, no vertebral tenderness Extremities: other (Mild bruising to the anterior right knee. Joint overall is stable without any bony tenderness. 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 No pneumothorax. He is on Coumadin however fall happened yesterday he has a GCS of 15, is alert oriented and ambulatory, no indication for CT head at this time. He has no neck pain, no indication for CT imaging here either. Right knee is bruised and slightly tender to palpation however he is ambulatory without difficulty, I do not see any indication for imaging of this either. Right wrist is only minimally tender and mostly over the skin where there is a small abrasion. No indication for imaging. He will be given a prescription for pain medication, and incentive spirometer and instructions to maintain deep breaths to avoid atelectasis, pneumonia. Discharged in stable condition. Impression Primary Impression: Rib pain Disposition: 01 HOME, SELF-CARE Condition: Stable Departure-Patient Inst. Referrals: ELIER GIBSON APRN (PCP) Primary Care Physician [facility] (Family) Primary Care Physician Patient Instructions: Muscle and Bone Pain (DC) Add. Discharge Instructions: Take the pain medication as prescribed as needed. This may make you drowsy so do not drive or make important decisions while taking it. I recommend she take a stool softener with it as it can cause constipation. It is important for you to take deep breaths, use the incentive spirometer as shown 2-3 times an hour. Follow-up with your primary doctor for any nonemergent needs. Return to the emergency department for any severe pain, significant shortness of breath or if your symptoms change in any way concerning to you. All discharge instructions reviewed with patient and/or family. Voiced understanding. Scripts Hydrocodone/Acetaminophen (Hydrocodone-Acetamin 5-325 mg) 5 Mg-325 Mg Tablet 1 TAB PO Q4H PRN for PAIN-MODERATE (5-7) for 3 Days, #12 TAB Prov: ARI WYMAN DO 11/08/22 ARI WYMAN DO Nov 08, 2022 11:01
[2022-11-08] MEDS ORDERED: ACHD5005 PO (11:07)
[2022-11-08 11:14] VITALS: BP 133/70
--- NOTE | 2022-11-08 11:17 | Diagnostic Imaging Report ---
EXAMINATION: Chest 2 view HISTORY: Fall. Rib pain. COMPARISON: 02/17/2021. FINDINGS: The lung volumes are normal. No focal consolidation is seen. No large pleural effusion or pneumothorax is seen. The cardiomediastinal silhouette is normal in size and contour. No acute osseous abnormality is seen. IMPRESSION: 1. No acute pleuroparenchymal process. Dictated by: Dictated on workstation # [id number]
== END 2022-11-08 11:13 | disposition home or self-care (01) ==
LOC: EDUNIT# 10:47 → ER FS 10:48
DX: S20.211A Contusion of right front wall of thorax, initial encounter (principal); S80.01XA Contusion of right knee, initial encounter; S60.811A Abrasion of right wrist, initial encounter; Z79.01 Long term (current) use of anticoagulants; W01.0XXA Fall on same level from slipping, tripping and stumbling without subsequent striking against object, initial encounter; Y92.480 Sidewalk as the place of occurrence of the external cause
CPT/HCPCS: 71046

== ENCOUNTER 2022-12-09 10:56 | Observation (INO) | payer MEDICARE ==
[2022-12-09] VITALS (7 sets, daily range): BP systolic 56–148; BP diastolic 36–70
[~2022-12-09] VITALS: Ht 177.8 cm; Wt 92.4 kg
[~2022-12-09 10:56] MED LIST changes: +ACHD5005 PO
[2022-12-09] MEDS ORDERED: NS IV 1000 ML 1,000 ML IV SCH ×2 (11:15→12:00)
--- NOTE | 2022-12-09 11:19 | ED General ---
General Chief Complaint: Cardiac/General Problems Stated Complaint: LOW BLOOD PRESSURE Source of Information: Patient Exam Limitations: No Limitations History of Present Illness Date Seen by Provider: Dec 09, 2022 Time Seen by Provider: 11:00 Initial Comments 82yoM with PMH of CAD s/p stenting, HTN, HLD, pAfib on Xarelto, and CKD coming in from physical therapy due to low blood pressure. He states he normally is around 120/70 and takes his BP meds at night time. He took these last night per usual. He is feeling well, eating and drinking normally, denying any other symptoms including no chest pain, shortness of breath, abdominal pain, nausea, vomiting, diarrhea, focal weakness or numbness, headache, vision changes, or any other concerns. He states he was doing his regular physical therapy for general lower extremity weakness, and when took his blood pressure it was 90s over 60s. On repeat it continued to be the same so they referred him to the ER. He states he feels good otherwise, and would not have come had they not referred him. Allergies and Home Medications Allergies Coded Allergies: No Known Drug Allergies (Unverified , 06/30/19) Patient Home Medication List Home Medication List Reviewed: Yes Amiodarone HCl (Amiodarone HCl) 200 Mg Tablet, 200 MG PO 1800, (Reported) Entered as Reported by: SAAD PARRISH on 09/23/19 0835 Atorvastatin Calcium (Atorvastatin Calcium) 20 Mg Tablet, 20 MG PO DAILY, (Reported) Entered as Reported by: JOSHUA POLLARD on 02/17/21 0941 Clopidogrel Bisulfate (Clopidogrel) 75 Mg Tablet, 75 MG PO DAILY, (Reported) Entered as Reported by: JOSHUA POLLARD on 02/17/21 0941 Doxycycline Hyclate (Doxycycline Hyclate) 100 Mg Tablet, 100 MG PO BID Prescribed by: GERONIMO COBB on 06/23/22 0955 Fluticasone Propionate (Flonase Allergy Relief) 9.9 Ml [place].susp, 1 SPRAY NS DAILY PRN for CONGESTION, (Reported) Entered as Reported by: SAAD PARRISH on 09/23/19 0842 Furosemide (Furosemide) 40 Mg Tablet, 40 MG PO DAILY, (Reported) Entered as Reported by: JOSHUA POLLARD on 02/17/21 0942 Glucosamine/D3/Boswellia Brigitte (Osteo Bi-Flex Tablet) 1 Each Tablet, 1 EACH PO BID, (Reported) Entered as Reported by: SAAD PARRISH on 09/23/19 08 Hydrocodone/Acetaminophen (Hydrocodone-Acetamin 5-325 mg) 5 Mg-325 Mg Tablet, 1 TAB PO Q4H PRN for PAIN-MODERATE (5-7) Prescribed by: ARI WYMAN MD on 11/08/22 1108 Losartan Potassium (Losartan Potassium) 25 Mg Tablet, 25 MG PO DAILY, (Reported) Entered as Reported by: JOSHUA POLLARD on 02/17/21 0942 Metoprolol Succinate (Metoprolol Succinate) 25 Mg Tab.er.24h, 25 MG PO 1800, (Reported) Entered as Reported by: SAAD PARRISH on 09/23/19 08 Rivaroxaban (Xarelto) 20 Mg Tablet, 20 MG PO DAILY, (Reported) Entered as Reported by: JOSHUA POLLARD on 02/17/21 09 Tamsulosin HCl (Flomax) 0.4 Mg Cap, 0.4 CAP PO 1800, (Reported) Entered as Reported by: SAAD PARRISH on 09/23/19834 Review of Systems Review of Systems Constitutional: No fever EENTM: no symptoms reported Respiratory: no symptoms reported Cardiovascular: no symptoms reported Gastrointestinal: no symptoms reported Genitourinary: no symptoms reported Musculoskeletal: no symptoms reported Skin: no symptoms reported Psychiatric/Neurological: No Symptoms Reported Hematologic/Lymphatic: No Symptoms Reported Immunological/Allergic: no symptoms reported All Other Systems Reviewed Negative Unless Noted: Yes Past Bdcsnma-Vrmztl-Ggktst Hx Patient Social History Tobacco Use?: No Immunizations Up To Date First/Initial COVID19 Vaccinat: Yes Second COVID19 Vaccination Sergo: Yes Third COVID19 Vaccination Date: Yes Seasonal Allergies Seasonal Allergies: No Past Medical History Surgery/Hospitalization HX: HTN; CAD; High Cholesterol; paroxysmal atrial fibrillation, chronic renalinsufficiency Surgeries: Yes Appendectomy, Coronary Stent, Tonsillectomy Respiratory: No Cardiac: Yes Atrial Fibrillation, Hypertension Neurological: No Genitourinary: No Gastrointestinal: No Musculoskeletal: No Endocrine: No HEENT: No Cancer: No Psychosocial: No Integumentary: No Blood Disorders: No Family Medical History No Pertinent Family Hx Physical Exam Vital Signs Vital Signs - First Documented 12/09/22 11:45 Pulse 55 58 66 B/P (MAP) 91/46 (61) 88/47 (61) 56/36 (43) Capillary Refill : Height, Weight, BMI Height: '" Weight: lbs. oz. kg; 30.00 BMI Method: General Appearance: No Apparent Distress, WD/WN Eyes: Bilateral Eye Normal Inspection HEENT: PERRL/EOMI, Normal ENT Inspection, Pharynx Normal Neck: Full Range of Motion, Normal Inspection, Non Tender, Supple Respiratory: Chest Non Tender, Lungs Clear, Normal Breath Sounds, No Accessory Muscle Use, No Respiratory Distress Cardiovascular: Regular Rate, Rhythm, No Edema, Normal Peripheral Pulses Gastrointestinal: Normal Bowel Sounds, Non Tender, Soft; No Distended, No Guarding Back: Normal Inspection, No CVA Tenderness, No Vertebral Tenderness Extremity: Normal Capillary Refill, Normal Inspection, Normal Range of Motion, Non Tender, No Calf Tenderness, No Pedal Edema Neurologic/Psychiatric: Oriented x3, No Motor/Sensory Deficits, Normal Mood/Affect Skin: Normal Color, Warm/Dry Focused Exam Lactate Level 12/09/22 11:10: Lactic Acid Level 2.85*H Lactic Acid Level Laboratory Tests Test 12/09/22 11:10 Lactic Acid Level 2.85 MMOL/L (0.50-2.00) *H Progress/Results/Core Measures Suspected Sepsis SIRS Temperature: Pulse: Respiratory Rate: Laboratory Tests 12/09/22 11:10: White Blood Count 6.7 Blood Pressure / Mean: 12/09/22 11:10: Lactic Acid Level 2.85*H Laboratory Tests 12/09/22 11:10: Creatinine 2.01H, INR Comment 1.8H, Platelet Count 246, Total Bilirubin 0.4 Results/Orders Lab Results Laboratory Tests Test 12/09/22 11:10 Range/Units White Blood Count 6.7 4.3-11.0 10^3/uL Red Blood Count 4.40 4.30-5.52 10^6/uL Hemoglobin 11.5 L 13.3-17.7 g/dL Hematocrit 38 L 40-54 % Mean Corpuscular Volume 86 80-99 fL Mean Corpuscular Hemoglobin 26 25-34 pg Mean Corpuscular Hemoglobin Concent 31 L 32-36 g/dL Red Cell Distribution Width 17.2 H 10.0-14.5 % Platelet Count 246 130-400 10^3/uL Mean Platelet Volume 10.4 9.0-12.2 fL Immature Granulocyte % (Auto) 0 % Neutrophils (%) (Auto) 74 42-75 % Lymphocytes (%) (Auto) 14 12-44 % Monocytes (%) (Auto) 8 0-12 % Eosinophils (%) (Auto) 3 0-10 % Basophils (%) (Auto) 1 0-10 % Neutrophils # (Auto) 5.0 1.8-7.8 10^3/uL Lymphocytes # (Auto) 0.9 L 1.0-4.0 10^3/uL Monocytes # (Auto) 0.6 0.0-1.0 10^3/uL Eosinophils # (Auto) 0.2 0.0-0.3 10^3/uL Basophils # (Auto) 0.0 0.0-0.1 10^3/uL Immature Granulocyte # (Auto) 0.0 0.0-0.1 10^3/uL Prothrombin Time 21.2 H 12.2-14.7 SEC INR Comment 1.8 H 0.8-1.4 Activated Partial Thromboplast Time 48 H 24-35 SEC Sodium Level 136 135-145 MMOL/L Potassium Level 4.3 3.6-5.0 MMOL/L Chloride Level 99 98-107 MMOL/L Carbon Dioxide Level 22 21-32 MMOL/L Anion Gap 15 H 5-14 MMOL/L Blood Urea Nitrogen 32 H 7-18 MG/DL Creatinine 2.01 H 0.60-1.30 MG/DL Estimat Glomerular Filtration Rate 33 BUN/Creatinine Ratio 16 Glucose Level 97 70-105 MG/DL Lactic Acid Level 2.85 *H 0.50-2.00 MMOL/L Calcium Level 9.3 8.5-10.1 MG/DL Corrected Calcium 9.1 8.5-10.1 MG/DL Total Bilirubin 0.4 0.1-1.0 MG/DL Aspartate Amino Transf (AST/SGOT) 19 5-34 U/L Alanine Aminotransferase (ALT/SGPT) 20 0-55 U/L Alkaline Phosphatase 77 40-136 U/L Troponin I < 0.30 <0.30 NG/ML Pro-B-Type Natriuretic Peptide 728.7 H <450.0 PG/ML Total Protein 7.6 6.4-8.2 GM/DL Albumin 4.3 3.2-4.5 GM/DL My Orders Orders - GERONIMO COBB MD Cbc With Automated Diff (12/09/22 11:14) Comprehensive Metabolic Panel (12/09/22 11:14) Blood Culture (12/09/22 11:14) Urinalysis (12/09/22 11:14) Urine Culture (12/09/22 11:14) Protime With Inr (12/09/22 11:14) Partial Thromboplastin Time (12/09/22 11:14) Chest 1 View Ap/Pa Only (12/09/22 11:14) Ed Iv/Invasive Line Start (12/09/22 11:14) Ekg Tracing (12/09/22 11:14) Vital Signs Adult Sepsis Patie Q15M (12/09/22 11:14) O2 (12/09/22 11:14) Remove Rings In Anticipation O (12/09/22 11:14) Lactic Acid Analyzer (12/09/22 11:14) Ns Iv 1000 Ml (Sodium Chloride 0.9%) (12/09/22 11:15) Probnp Fs (12/09/22 11:14) Troponin I Fs (12/09/22 11:14) Ns Iv 1000 Ml (Sodium Chloride 0.9%) (12/09/22 12:00) Cefepime Injection (Maxipime Injection) (12/09/22 12:00) Vital Signs/I&O 12/09/22 11:45 Pulse 55 58 66 B/P (MAP) 91/46 (61) 88/47 (61) 56/36 (43) Capillary Refill : Progress Note : Progress Note 82-year-old male with above history coming in due to low blood pressure while doing physical therapy today. On arrival here lying down his blood pressure was 91/46, sitting 88/47, standing 56/36 with him feeling lightheaded and near s yncopal. He states normally he is 120/70. He did take his blood pressure medicines last night. For his paroxysmal A-fib he is on Xarelto, amiodarone, and metoprolol. I reviewed the chart, and his heart rate has been in the 50s for several years. Here he is in the low 50s to around 49 at the lowest. When he is laying down, he essentially is asymptomatic. No fever or any other obvious signs of infection clinically. An IV was placed and basic labs were obtained including lactic acid and blood cultures. Given the significantly low blood pressure, he was given a bolus of IV fluids as well as cefepime while awaiting lab values. His white blood cell count is normal, lactic acid is slightly elevated just under 3. His creatinine is around his baseline and troponin is negative. EKG on my interpretation with no acute ischemic changes, does show sinus bradycardia. Chest x-ray on my interpretation with no obvious pneumonia or pneumothorax. I did repeat vitals including repeat orthostatics, and he did have improvement. I discussed with him bringing him in under observation status versus going home. He is concerned that he lives alone, if he were to worsen, he may not be able to make it to the phone to call 911, or call anybody to help him. At this point, I contacted Dr. Sales, discussed the case with her, and she will be admitting the patient to the hospital for further evaluation and management. A second liter of IV fluids has been started, and will be going at 100 cc/h. At this point, he appears euvolemic, and is not showing any clinical signs of sepsis otherwise. I suspect he was slightly dehydrated. ECG Initial ECG Impression Date: Dec 09, 2022 Initial ECG Impression Time: 11:30 Initial ECG Rate: 54 Initial ECG Rhythm: S.Carlitos Comment Narrow QRS, normal axis, no significant ST changes or T wave abnormalities, QRS 116, QTc 453 Diagnostic Imaging Diagonstic Imaging: Xray (chest) Comments [facility] [place] NAME: NICOLA QUESADA [facility] REC#: [id number] PT STATUS: REG ER : 1940 PHYSICIAN: GERONIMO COBB MD ADMIT DATE: 12/09/22/ER FS Draft Date of Exam:12/09/22 CHEST 1 VIEW AP/PA ONLY EXAMINATION: Chest 1 view HISTORY: hypotensive COMPARISON: 02/17/2021 FINDINGS: Heart size and pulmonary vasculature are normal. The lungs are clear without consolidation, pleural effusion, or pneumothorax. Degenerative changes of the thoracic spine. Osseous structures are otherwise intact. IMPRESSION: 1. No acute radiographic abnormality in the chest. Dictated on workstation # [id number] Dict: 12/09/22 1140 Trans: 12/09/22 1150 [facility] [id number] Interpreted by: HALEY ROMERO DO Electronically signed by: Departure Impression Primary Impression: Transient hypotension Additional Impressions: Orthostatic lightheadedness Near syncope Paroxysmal A-fib Disposition: 30 STILL A PATIENT Condition: Stable Admissions Decision to Admit Reason: Admit from ER (General) Decision to Admit/Date: Dec 09, 2022 Time/Decision to Admit Time: 12:25 Transfer Transfer Facility: [facility] Method of Transfer: EMS Departure-Patient Inst. Referrals: KULWANT DHALIWAL APRN (PCP/Family) Primary Care Physician GERONIMO COBB MD Dec 09, 2022 11:19
[2022-12-09 11:31] LABS: BASOPHILS % (AUTO) 1 % (0-10); EOSINOPHILS # (AUTO) 0.2 10^3/uL (0.0-0.3); EOSINOPHILS % (AUTO) 3 % (0-10); HEMATOCRIT 38 % (40-54); HEMOGLOBIN 11.5 g/dL (13.3-17.7); LYMPHOCYTES # (AUTO) 0.9 10^3/uL (1.0-4.0); LYMPHOCYTES % (AUTO) 14 % (12-44); MEAN CORPUSCULAR HEMOGLOBIN 26 pg (25-34); MEAN CORPUSCULAR HGB CONC 31 g/dL (32-36); MEAN CORPUSCULAR VOLUME 86 fL (80-99); MEAN PLATELET VOLUME 10.4 fL (9.0-12.2); MONOCYTES # (AUTO) 0.6 10^3/uL (0.0-1.0); MONOCYTES % (AUTO) 8 % (0-12); NEUTROPHILS % (AUTO) 74 % (42-75); PLATELET COUNT 246 10^3/uL (130-400); WHITE BLOOD COUNT 6.7 10^3/uL (4.3-11.0)
[2022-12-09 11:45] LABS: INR 1.8 (0.8-1.4); PROTHROMBIN TIME PATIENT 21.2 SEC (12.2-14.7)
--- NOTE | 2022-12-09 11:50 | Diagnostic Imaging Report ---
EXAMINATION: Chest 1 view HISTORY: hypotensive COMPARISON: 02/17/2021 FINDINGS: Heart size and pulmonary vasculature are normal. The lungs are clear without consolidation, pleural effusion, or pneumothorax. Degenerative changes of the thoracic spine. Osseous structures are otherwise intact. IMPRESSION: 1. No acute radiographic abnormality in the chest. Dictated by: Dictated on workstation # [id number]
[2022-12-09] MEDS ORDERED: CEFEPIME INJECTION 1,000 MG in NS (IVPB) 50 ML IV ONE (12:00)
[2022-12-09 12:05] LABS: ALANINE AMINOTRANSFERASE 20 U/L (0-55); BILIRUBIN,TOTAL 0.4 MG/DL (0.1-1.0); BUN/CREATININE RATIO 16; CALCIUM 9.3 MG/DL (8.5-10.1); CARBON DIOXIDE 22 MMOL/L (21-32); CHLORIDE 99 MMOL/L (98-107); CREATININE SERUM 2.01 MG/DL (0.60-1.30); GFR ESTIMATED 33; GLUCOSE 97 MG/DL (70-105); POTASSIUM 4.3 MMOL/L (3.6-5.0); SODIUM 136 MMOL/L (135-145)
[2022-12-09 12:06] LABS: ALBUMIN 4.3 GM/DL (3.2-4.5); TOTAL PROTEIN 7.6 GM/DL (6.4-8.2)
[2022-12-09 12:12] LABS: ALKALINE PHOSPHATASE 77 U/L (40-136)
[2022-12-09] MEDS ORDERED: diphenhydrAMINE 25 MG TAB (BENADRYL) PO PRN (14:30)
[2022-12-09] MEDS ORDERED: ACETAMINOPHEN 325 MG TABLET PO PRN (14:30)
[2022-12-09] MEDS ORDERED: MELATONIN 3 MG TABLET PO PRN (14:30)
[2022-12-09] MEDS ORDERED: ANTACID SUSP 30 ML UDC (MYLANTA) PO PRN (14:30)
[2022-12-09] MEDS ORDERED: ONDANSETRON 4 MG/2 ML (SDV) Z0FRAN IV PRN (14:30)
[2022-12-09] MEDS ORDERED: diphenhydrAMINE 50 MG/ML INJ (BENADRYL) IVP PRN (14:30)
[2022-12-09] MEDS ORDERED: ONDANSETRON 4 MG (ZOFRAN) ORAL DISSOLVE TAB PO PRN (14:30)
[2022-12-09] MEDS ORDERED: polyethylene glycoL POWDER 17 GM (MIRALAX) PACK PO PRN (14:30)
[2022-12-09] MEDS ORDERED: HYDROmorphone 2 MG/ML VIAL (DILAUDID) IV PRN (14:30)
[2022-12-09] MEDS ORDERED: BISACODYL 10 MG SUPP (DULCOLAX) PR PRN (14:30)
[2022-12-09] MEDS: NS IV 1000 ML 1,000 ML IV SCH (14:57)
[2022-12-09] MEDS ORDERED: RT-ALBUTEROL SULF 2.5 MG/3 ML PRE-MIX VIAL INH PRN (15:30)
[2022-12-09] MEDS ORDERED: ENOXAPARIN INJECTION 30 MG/0.3 ML SYR SC SCH (16:00)
[2022-12-09] MEDS: DOCUSATE SODIUM 100 MG (COLACE) CAP PO SCH (21:05)
[2022-12-10] MEDS: NS IV 1000 ML 1,000 ML IV SCH (02:56)
[2022-12-10 03:40] VITALS: BP 136/63
[2022-12-10 06:07] LABS: BASOPHILS % (AUTO) 1 % (0-10); EOSINOPHILS # (AUTO) 0.3 10^3/uL (0.0-0.3); EOSINOPHILS % (AUTO) 6 % (0-10); HEMATOCRIT 32 % (40-54); HEMOGLOBIN 9.9 g/dL (13.3-17.7); LYMPHOCYTES # (AUTO) 0.7 10^3/uL (1.0-4.0); LYMPHOCYTES % (AUTO) 11 % (12-44); MEAN CORPUSCULAR HEMOGLOBIN 27 pg (25-34); MEAN CORPUSCULAR HGB CONC 31 g/dL (32-36); MEAN CORPUSCULAR VOLUME 86 fL (80-99); MEAN PLATELET VOLUME 10.9 fL (9.0-12.2); MONOCYTES # (AUTO) 0.7 10^3/uL (0.0-1.0); MONOCYTES % (AUTO) 11 % (0-12); NEUTROPHILS # (AUTO) 4.2 10^3/uL (1.8-7.8); NEUTROPHILS % (AUTO) 71 % (42-75); PLATELET COUNT 207 10^3/uL (130-400)
[2022-12-10 06:25] LABS: ALBUMIN 3.5 GM/DL (3.2-4.5); BILIRUBIN,TOTAL 0.4 MG/DL (0.1-1.0); CALCIUM 8.5 MG/DL (8.5-10.1); CREATININE SERUM 1.44 MG/DL (0.60-1.30); POTASSIUM 4.2 MMOL/L (3.6-5.0); TOTAL PROTEIN 6.3 GM/DL (6.4-8.2)
--- NOTE | 2022-12-10 07:26 | History & Physical-Hospitalist ---
History of Present Illness HPI/Chief Complaint CC: Syncope HPI: This is an 82yoWM clinic patient of [facility] who has a h/o AF and CAD who presented from [facility] ER with syncope. MARCELA noted so given IVF and creat is improved today. Overall he is back to his baseline and wants to go home. Bradycardia noted so Cardiology consulted. Source: patient, RN/MD Exam Limitations: no limitations Date Seen 12/10/22 Time Seen by a Provider: 11:00 Attending Physician Carito Del Cid Aprn PCP Admitting Physician: Randi Sales DO Attending Physician: Randi Sales DO Referring Physician Date of Admission Dec 09, 2022 at 14:15 Home Medications & Allergies Home Medications Reviewed patient Home Medication Reconciliation performed by pharmacy medication reconciliations optical lab technician and/or nursing. Patients Allergies have been reviewed. Allergies Allergies Coded Allergies No Known Drug Allergies (Uqqerreeme55/17/19) Past Myxndts-Nshbyx-Ufegig Hx Patient Social History Marrital Status: single Employed/Student: retired Tobacco Use?: Yes Tobacco type used: Cigars Smoking Status: Former Smoker Smokeless Tobacco Frequency: Former User Use of E-Cig and/or Vaping dev: No Substance use?: No Alcohol Use?: No Pt feels they are or have been: No Immunizations Up To Date First/Initial COVID19 Vaccinat: Yes Second COVID19 Vaccination Sergo: Yes Seasonal Allergies Seasonal Allergies: No Current Status Advance Directives: No Primary Language: [place] Preferred Spoken Language: [place] Is interpretation needed?: No Sensory deficits: Vision impairment Past Medical History Surgeries: Appendectomy, Coronary Stent, Tonsillectomy Atrial Fibrillation, Hypertension Blood Disorders: No Family Medical History No Pertinent Family Hx Review of Systems Constitutional: see HPI, dizziness Physical Exam Physical Exam Vital Signs Vital Signs - First Documented 12/09/22 11:10 Temp 36.5 Pulse 63 Resp 18 B/P (MAP) 115/42 (66) Pulse Ox 97 O2 Delivery Room Air Capillary Refill : Less Than 3 Seconds Height, Weight, BMI Height: '" Weight: lbs. oz. kg; 29.22 BMI Method: General Appearance: No Apparent Distress Eyes: Right Eye Normal Inspection, Right Eye PERRL HEENT: PERRL/EOMI, Normal ENT Inspection, Pharynx Normal, Moist Mucous Membranes Neck: Full Range of Motion, Normal Inspection, Non Tender Respiratory: Chest Non Tender, Lungs Clear, Normal Breath Sounds, No Accessory Muscle Use, No Respiratory Distress Cardiovascular: Regular Rate, Rhythm, No Edema, No Gallop, No JVD, No Murmur, Normal Peripheral Pulses Gastrointestinal: Normal Bowel Sounds, No Organomegaly, No Pulsatile Mass, Non Tender, Soft Back: Normal Inspection, No CVA Tenderness, No Vertebral Tenderness Extremity: Normal Capillary Refill, Normal Inspection, Normal Range of Motion, Non Tender, No Calf Tenderness, No Pedal Edema Neurologic/Psychiatric: Alert, Oriented x3, No Motor/Sensory Deficits, Normal Mood/Affect Skin: Normal Color, Warm/Dry Lymphatic: No Adenopathy Results Results/Procedures Labs Laboratory Tests 12/09/22 11:10 12/10/22 05:08 Patient resulted labs reviewed. Assessment/Plan Admission Diagnosis Assessment: Syncope MARCELA from dehydration AF Bradycardia OAC Plan: Monitor closely Increase PO fluids Admission Status: Observation RANDI SALES DO Dec 10, 2022 07:26
[2022-12-10 08:06] VITALS: BP 163/70
[2022-12-10] MEDS: DOCUSATE SODIUM 100 MG (COLACE) CAP PO SCH (10:13)
[2022-12-10 12:16] VITALS: BP 167/72
[2022-12-10] MEDS ORDERED: ASPI-1238 PO (12:32)
--- NOTE | 2022-12-10 14:03 | Consultation-Cardiology ---
HPI-Cardiology Cardiology Consultation: Date of Consultation 12/10/22 Time Seen by a Provider: 13:00 Date of Admission Attending Physician Carito Del Cid Aprn Admitting Physician Admitting Physician: Randi Sales DO Attending Physician: Randi Sales DO Consulting Physician IRAJ MILLER MD, MA, FACP, FACC, FSCAI, CCDS Physician requesting consult: Dr Sales HPI: Chief Complaint: Reason for Card consult: Orthostasis 82 yo man found to have orthostatic hypotension during physical therapy for chronic leg weakness. Sent to ER. Orthostasis confirmed. Treated with iv fluids. Kept for overnight observation. Currently feels well. States never did have syncope. Denies cp or palp or shortness of breath or swelling. Denies n/v/d. Wishes to be discharged Review of Systems-Cardiology Review of Systems Constitutional: malaise, tiredness, other (gen weakness, more in the legs) Eyes: No vision change Ears/Nose/Throat: No ear discharge, No nasal drainage, No recent hearing loss Respiratory: As described under HPI Cardiovascular: As described under HPI Gastrointestinal: As described under HPI Genitourinary: No dysuria, No hematuria Musculoskeletal: back pain (chornic) Skin: No rash, No ulcerations Psychiatric/Neurological: other (chronic leg weakness); No seizure, No focal weakness, No syncope Hematologic: No bleeding abnormalities All Other Systems Reviewed Negative Unless Noted: Yes CIE-Hwypwq-Hdsvzi Hx Patient Social History Smoking Status: Former Smoker 2nd Hand Smoke Exposure: No Have you traveled recently?: No Alcohol Use?: No Pt feels they are or have been: No Tobacco type used: Cigars Past Medical History PMH As described under Assessment. Family Medical History Family Medical History: He does not report fam h/o early CAD or SCD Allergies and Home Medications Allergies Coded Allergies: No Known Drug Allergies (Unverified , 06/30/19) Patient Home Medication List Home Medication List Reviewed: Yes Amiodarone HCl (Amiodarone HCl) 200 Mg Tablet, 200 MG PO 1800, (Reported) Entered as Reported by: SAAD PARRISH on 09/23/19 0835 Last Action: Continued Aspirin (Aspirin EC) 81 Mg Tablet.dr 81 MG PO DAILY, (Reported) Entered as Reported by: MARISSA JOHNSON on 12/10/22 1232 Last Action: New Order Atorvastatin Calcium (Atorvastatin Calcium) 20 Mg Tablet, 20 MG PO DAILY, (Repo rted) Entered as Reported by: JOSHUA POLLARD on 02/17/21940 Last Action: Continued Furosemide (Furosemide) 40 Mg Tablet, 40 MG PO DAILY, (Reported) Entered as Reported by: JOSHUA POLLARD on 02/17/21941 Last Action: Continued Glucosamine/D3/Boswellia Brigitte (Osteo Bi-Flex Tablet) 1 Each Tablet, 1 EACH PO BID, (Reported) Entered as Reported by: SAAD PARRISH on 09/23/19841 Last Action: Converted Metoprolol Succinate (Metoprolol Succinate) 25 Mg Tab.er.24h, 25 MG PO 1800, (Reported) Entered as Reported by: SAAD PARRISH on 09/23/19834 Last Action: Continued Rivaroxaban (Xarelto) 20 Mg Tablet, 20 MG PO DAILY, (Reported) Entered as Reported by: JOSHUA POLLARD on 02/17/21941 Last Action: Continued Tamsulosin HCl (Flomax) 0.4 Mg Cap, 0.4 CAP PO 1800, (Reported) Entered as Reported by: SAAD PARRISH on 09/23/19834 Last Action: Continued Discontinued Medications Clopidogrel Bisulfate (Clopidogrel) 75 Mg Tablet, 75 MG PO DAILY, (Reported) Discontinued Reason: No Longer Taking Entered as Reported by: JOSHUA POLLARD on 02/17/21940 Last Action: Discontinued Doxycycline Hyclate (Doxycycline Hyclate) 100 Mg Tablet, 100 MG PO BID Prescribed by: GERONIMO COBB on 06/23/22 09 Last Action: Discontinued Fluticasone Propionate (Flonase Allergy Relief) 9.9 Ml [place].susp, 1 SPRAY NS DAILY PRN for CONGESTION, (Reported) Discontinued Reason: No Longer Taking Entered as Reported by: SAAD PARRISH on 09/23/19841 Last Action: Discontinued Hydrocodone/Acetaminophen (Hydrocodone-Acetamin 5-325 mg) 5 Mg-325 Mg Tablet, 1 TAB PO Q4H PRN for PAIN-MODERATE (5-7) Discontinued Reason: No Longer Taking Prescribed by: ARI WYMAN MD on 11/08/22 1107 Last Action: Discontinued Losartan Potassium (Losartan Potassium) 25 Mg Tablet, 25 MG PO DAILY, (Reported) Discontinued Reason: No Longer Taking Entered as Reported by: JOSHUA POLLARD on 02/17/21 0942 Last Action: Discontinued Physical Exam-Cardiology Physical Exam Vital Signs/I&O 12/10/22 12/10/22 12/10/22 12/10/22 03:40 07:00 08:00 08:06 Temp 36.0 36.2 Pulse 54 57 53 Resp 20 19 B/P (MAP) 136/63 (87) 163/70 (101) Pulse Ox 93 97 96 O2 Delivery Room Air Room Air Room Air 12/10/22 12/10/22 12/10/22 08:31 12:16 12:37 Temp 36.4 Pulse 59 66 Resp 18 B/P (MAP) 167/72 (103) Pulse Ox 93 96 O2 Delivery Room Air Room Air 12/10/22 00:00 Intake Total 1680 ml Output Total 525 ml Balance 1155 ml Capillary Refill : Less Than 3 Seconds Constitutional: AAO x 3, well-developed, well-nourished HEENT: EOMI, hearing is well preserved; No xanthelasmas are seen Neck: carotid pulses are 2 + bilaterally, with good upstrokes Respiratory: No accessory muscle use; other Cardiovascular: regular rate-rhythm, S1 and S2, systolic murmur (3/6 MSM radiating towards the carotids) Gastrointestinal: No tender; soft; No guarding, No rebound; audible bowel sounds Extremities: clubbing, cyanosis; No significant edema Neurologic/Psychiatric: oriented x 3, other (moves all limbs) Skin: normal color, warm/dry; No cyanosis, No cool, No diaphoresis Data Review Labs Laboratory Tests 12/10/22 05:08: White Blood Count 6.0, Red Blood Count 3.69L, Hemoglobin 9.9L, Hematocrit 32L, Mean Corpuscular Volume 86, Mean Corpuscular Hemoglobin 27, Mean Corpuscular Hemoglobin Concent 31L, Red Cell Distribution Width 17.0H, Platelet Count 207, Mean Platelet Volume 10.9, Immature Granulocyte % (Auto) 0, Neutrophils (%) (Auto) 71, Lymphocytes (%) (Auto) 11L, Monocytes (%) (Auto) 11, Eosinophils (%) (Auto) 6, Basophils (%) (Auto) 1, Neutrophils # (Auto) 4.2, Lymphocytes # (Auto) 0.7L, Monocytes # (Auto) 0.7, Eosinophils # (Auto) 0.3, Basophils # (Auto) 0.0, Immature Granulocyte # (Auto) 0.0, Sodium Level 138, Potassium Level 4.2, Chloride Level 109H, Carbon Dioxide Level 23, Anion Gap 6, Blood Urea Nitrogen 27H, Creatinine 1.44H, Estimat Glomerular Filtration Rate 49, BUN/Creatinine Ratio 19, Glucose Level 87, Calcium Level 8.5, Corrected Calcium 8.9, Total Bilirubin 0.4, Aspartate Amino Transf (AST/SGOT) 20, Alanine Aminotransferase (ALT/SGPT) 21, Alkaline Phosphatase 55, Total Protein 6.3L, Albumin 3.5 Laboratory Tests 12/09/22 11:10 12/10/22 05:08 A/P-Cardiology Assessment/Admission Diagnosis Mild orthostasis on 12/09/22 corrected with iv fluids Anemia, moderate, of undetermined etiology - managed by Dr Sales (patient's admitting physician and Hospitalist) Coronary artery disease - September 2019: complex intervention in [facility] with 2 stents to the right coronary artery using 3 x 38 and 3.5 x 16, ramus intermedius 3 x 16 Synergy stent at high pressure, LAD has 60-70 percent eccentric stenosis with multiple branch involvement, decision was made to treat LAD medically due to complexity, circumflex was a small caliber artery with chronic total occlusion and was treated medically. - Repeat LHC done February 2021 showing patent stent in the RCA and proximal ramus intermedius, good flow distally. Severe stenosis/subtotal occlusion in the proximal circumflex that is very small, did not change compared to Sep 2019. Moderate, unchanged stenosis in the ostial LAD Paroxysmal atrial fibrillation - maintained on Xarelto and amiodarone Mild aortic valve stenosis - Echo 10-04-22: LVEF 55-60%, mild conc LVH, grade 1 diastolic dysfunction, mild to moderate , mild to mod MR, PASP 25 mmHg Labile hypertension Mild bilateral carotid stenosis - monitored by Dr Garcia Tobaccoism - advised smoking cessation Discussion and Recomendations * Appears to have transient, borderline hypotension that did not cause any symptoms and that resolved with hydration. * He wishes to go home. It appears reasonable to do so from cardiac standpoint. We have advised him to monitor bp at home and to f/u with Dr Garcia within two weeks. * Management of anemia and fluid status is with Dr Sales. IRAJ MILLER MD FACP FAC CCDS Dec 10, 2022 14:03
[2022-12-10 15:00] VITALS: BP 167/72
[2022-12-10] MEDS ORDERED: RIVAROXABAN 15 MG TABLET (XARELTO) PO SCH (17:00)
[2022-12-10] MEDS ORDERED: TAMSULOSIN 0.4 MG (FLOMAX) CAP PO SCH (18:00)
[2022-12-10] MEDS ORDERED: AMIODARONE 200 MG (CORDARONE) TAB PO SCH (18:00)
[2022-12-11] MEDS ORDERED: RIVAROXABAN 20 MG TABLET (XARELTO) PO SCH (09:00)
[2022-12-11] MEDS ORDERED: FUROSEMIDE 40 MG (LASIX) TAB PO SCH (09:00)
== END 2022-12-10 13:53 | disposition home or self-care (01) ==
LOC: EDUNIT# 10:56 → ER FS 10:58 → 4TH 14:15 → UNDOADMOB 14:15 → 4TH 14:24 → UNDODISOB 12-10 15:00
PROVIDERS: ADMIT Internal Medicine; ATTEND Internal Medicine
DX: I95.1 Orthostatic hypotension (principal); N17.9 Acute kidney failure, unspecified; I48.0 Paroxysmal atrial fibrillation; I35.0 Nonrheumatic aortic (valve) stenosis; I10 Essential (primary) hypertension; E86.0 Dehydration; R00.2 Palpitations; R53.1 Weakness; D64.9 Anemia, unspecified; Z87.891 Personal history of nicotine dependence; Z79.01 Long term (current) use of anticoagulants; Z79.899 Other long term (current) drug therapy
CPT/HCPCS: 36415; 71045; 80053 ×2; 83605; 83880; 84484; 85025 ×2; 85610; 85730; 87040; 93005; 94760; 96372; 99284; G0378

== ENCOUNTER 2022-12-19 11:35 | Emergency (ER) | payer MEDICARE ==
[~2022-12-19] VITALS: Ht 177 cm; Wt 95.0 kg
[~2022-12-19 11:35] MED LIST changes: +ASPI-1238 PO
[2022-12-19 11:51] LABS: BILIRUBIN,URINE NEGATIVE (NEGATIVE); CLARITY,URINE CLEAR; COLOR,URINE YELLOW; GLUCOSE, URINE (UA) NEGATIVE (NEGATIVE); KETONES,URINE NEGATIVE (NEGATIVE); LEUKOCYTE ESTERASE ,URINE NEGATIVE (NEGATIVE); NITRITE,URINE NEGATIVE (NEGATIVE); PH,URINE 6.5 (5-9); PROTEIN,URINE NEGATIVE (NEGATIVE)
[2022-12-19] MEDS ORDERED: DICL100G32 TP (11:51)
[2022-12-19] MEDS ORDERED: LIDO700A45 TP (11:51)
--- NOTE | 2022-12-19 11:51 | ED General ---
General Stated Complaint: RT FLANK PAIN Source of Information: Patient Exam Limitations: No Limitations History of Present Illness Date Seen by Provider: December 19, 2022 Time Seen by Provider: 11:37 Initial Comments 82-year-old male coming in with right flank pain. A week ago he twisted, felt a pull in his right flank and the muscles, and its been hurting ever since. No pain when he is sitting still, pain with twisting or movement. He has been taking Tylenol and using Aspercreme which has been helping some. Denies any dysuria, fever, difficulty urinating, abdominal pain, nausea, vomiting, weakness, numbness, or any other concerns. Allergies and Home Medications Allergies Coded Allergies: No Known Drug Allergies (Unverified , 06/30/19) Patient Home Medication List Home Medication List Reviewed: Yes Amiodarone HCl (Amiodarone HCl) 200 Mg Tablet, 200 MG PO 1800, (Reported) Entered as Reported by: SAAD PARRISH on 09/23/19 0835 Aspirin (Aspirin EC) 81 Mg Tablet.dr, 81 MG PO DAILY, (Reported) Entered as Reported by: MARISSA JOHNSON on 12/10/22 1232 Atorvastatin Calcium (Atorvastatin Calcium) 20 Mg Tablet, 20 MG PO DAILY, (Reported) Entered as Reported by: JOSHUA POLLARD on 02/17/21 0941 Diclofenac Sodium (Diclofenac Sodium) 3 % Gel..gram., 1 INCH TP Q8H Prescribed by: GERONIMO COBB on 12/19/22 1151 Furosemide (Furosemide) 40 Mg Tablet, 40 MG PO DAILY, (Reported) Entered as Reported by: JOSHUA POLLARD on 02/17/21 0942 Glucosamine/D3/Boswellia Brigitte (Osteo Bi-Flex Tablet) 1 Each Tablet, 1 EACH PO BID, (Reported) Entered as Reported by: SAAD PARRISH on 09/23/19 0842 Lidocaine (Lidocaine 5% Patch) 5 % Adh..patch, 1 EACH TP Q12H PRN for Neuropathic pain Prescribed by: GERONIMO COBB on 12/19/22 1151 Metoprolol Succinate (Metoprolol Succinate) 25 Mg Tab.er.24h, 25 MG PO 1800, (Reported) Entered as Reported by: SAAD PARRISH on 09/23/19 0835 Rivaroxaban (Xarelto) 20 Mg Tablet, 20 MG PO DAILY, (Reported) Entered as Reported by: JOSHUA POLLARD on 02/17/21 0942 Tamsulosin HCl (Flomax) 0.4 Mg Cap, 0.4 CAP PO 1800, (Reported) Entered as Reported by: SAAD PARRISH on 09/23/19 0835 Review of Systems Review of Systems Constitutional: No fever EENTM: no symptoms reported Respiratory: no symptoms reported Cardiovascular: no symptoms reported Gastrointestinal: no symptoms reported Genitourinary: no symptoms reported Musculoskeletal: see HPI Skin: no symptoms reported Psychiatric/Neurological: No Symptoms Reported Hematologic/Lymphatic: No Symptoms Reported Past [id number] Hx Patient Social History Tobacco Use?: No Immunizations Up To Date First/Initial COVID19 Vaccinat: Yes Second COVID19 Vaccination Sergo: Yes Third COVID19 Vaccination Date: Yes Seasonal Allergies Seasonal Allergies: No Past Medical History Surgery/Hospitalization HX: HTN; CAD; High Cholesterol; paroxysmal atrial fibrillation, chronic renalinsufficiency Surgeries: Yes Appendectomy, Coronary Stent, Tonsillectomy Respiratory: No Cardiac: Yes Atrial Fibrillation, Hypertension Neurological: No Genitourinary: No Gastrointestinal: No Musculoskeletal: No Endocrine: No HEENT: No Cancer: No Psychosocial: No Integumentary: No Blood Disorders: No Family Medical History No Pertinent Family Hx Physical Exam Vital Signs Vital Signs - First Documented 12/19/22 11:40 Temp 36.4 Pulse 104 Resp 16 B/P (MAP) 162/72 (102) Pulse Ox 95 O2 Delivery Room Air Capillary Refill : Height, Weight, BMI Height: '" Weight: lbs. oz. kg; 29.22 BMI Method: General Appearance: No Apparent Distress, WD/WN HEENT: PERRL/EOMI, Normal ENT Inspection, Pharynx Normal Neck: Full Range of Motion, Normal Inspection, Non Tender, Supple Respiratory: Chest Non Tender, Lungs Clear, Normal Breath Sounds, No Accessory Muscle Use, No Respiratory Distress Cardiovascular: Regular Rate, Rhythm, No Edema, Normal Peripheral Pulses Gastrointestinal: Normal Bowel Sounds, Non Tender, Soft; No Distended, No Guarding Back: Normal Inspection, No Vertebral Tenderness, Other (Tender along the musculature of the right flank, no CVA tenderness, pain is recreated with any twisting, no pain if he is sitting still) Extremity: Normal Capillary Refill, Normal Inspection, Normal Range of Motion, Non Tender, No Calf Tenderness Neurologic/Psychiatric: Alert, No Motor/Sensory Deficits, Normal Mood/Affect Skin: Normal Color, Warm/Dry; No Rash Progress/Results/Core Measures Suspected Sepsis SIRS Temperature: Pulse: Respiratory Rate: Blood Pressure / Mean: Results/Orders Lab Results Laboratory Tests Test 12/19/22 11:40 Range/Units Urine Color YELLOW Urine Clarity CLEAR Urine pH 6.5 5-9 Urine Specific Darwin 1.020 1.016-1.022 Urine Protein NEGATIVE NEGATIVE Urine Glucose (UA) NEGATIVE NEGATIVE Urine Ketones NEGATIVE NEGATIVE Urine Nitrite NEGATIVE NEGATIVE Urine Bilirubin NEGATIVE NEGATIVE Urine Urobilinogen 0.2 < = 1.0 MG/DL Urine Leukocyte Esterase NEGATIVE NEGATIVE Urine RBC (Auto) 1+ H NEGATIVE Urine RBC 2-5 H /HPF Urine WBC NONE /HPF Urine Crystals NONE /LPF Urine Bacteria NEGATIVE /HPF Urine Casts NONE /LPF Urine Mucus NEGATIVE /LPF Urine Culture Indicated NO My Orders Orders - GERONIMO COBB MD Ua Culture If Indicated (12/19/22 11:40) Vital Signs/I&O 12/19/22 11:40 Temp 36.4 Pulse 104 Resp 16 B/P (MAP) 162/72 (102) Pulse Ox 95 O2 Delivery Room Air Capillary Refill : Progress Note : Progress Note 82-year-old male with above history coming in due to right flank pain after twisting and feeling a pull. ABCs were intact and vitals were stable on presentation. Physical exam with no CVA tenderness, no rash, and no red flags otherwise. The clinical history and exam is consistent with a strained muscle. He has no pain sitting there, and although the pain is recreated with any type of twisting movement. I will recommend continuing the Tylenol, we will add in a lidocaine patch, as well as diclofenac gel intermittently. Advanced imaging not warranted at this time as exam is not consistent with a kidney stone. The patient had a urinalysis reflexively sent when he came back for flank pain, and no evidence of infection. There is blood in it, but once again clinically not consistent with a kidney stone. I discussed the need to follow-up with his PCP and potentially urologist if he has persistent blood in his urine on repeat. I told him I do not recommend a muscle relaxer at his age. I believe he is otherwise stable for discharge with outpatient follow-up. He was sent home with strict return precautions. Departure Impression Primary Impression: Flank strain Qualified Codes: S39.011A - Strain of muscle, fascia and tendon of abdomen, initial encounter Disposition: 01 HOME, SELF-CARE Condition: Stable Departure-Patient Inst. Decision time for Depature: 12:00 Referrals: KULWANT DHALIWAL APRN (PCP) Primary Care Physician [facility] (Family) Primary Care Physician Patient Instructions: Muscle Strain ED Add. Discharge Instructions: This is consistent with a muscle strain. Continue the medicines you have been using, we will add in diclofenac gel which is kind of like ibuprofen straight to the area, but is safe in someone your age. We will also add in a lidocaine patch to numb the area. Put on the gel in the morning, let it soak in for 30 minutes before you put on the patch. When you change the patch in the evening, you can put the gel on again. Scripts Lidocaine (Lidocaine 5% Patch) 5 % Adh..patch 1 EACH TP Q12H PRN for Neuropathic pain MDD 2 for 14 Days, #28 PATCH 2 patches max for 12 hours, then 12 hours patch-free period. If using diclofenac gel, place the gel on first and let absorb for an hour before placing the patch. Prov: GERONIMO COBB MD 12/19/22 Diclofenac Sodium (Diclofenac Sodium) 3 % Gel..gram. 1 INCH TP Q8H for 14 Days, #1 EA Prov: GERONIMO COBB MD 12/19/22 GERONIMO COBB MD December 19, 2022 11:51
[2022-12-19 12:00] LABS: BACTERIA,URINE NEGATIVE /HPF
[2022-12-19 12:10] VITALS: BP 162/72
== END 2022-12-19 12:10 | disposition home or self-care (01) ==
LOC: EDUNIT# 11:35 → ER FS 11:37
DX: S39.011A Strain of muscle, fascia and tendon of abdomen, initial encounter (principal); X50.1XXA Overexertion from prolonged static or awkward postures, initial encounter
CPT/HCPCS: 81000; 99282